=== PATIENT | male | born 1950 | race Caucasian/White ===

== ENCOUNTER 2018-10-08 12:19 | Emergency (ER) | payer OTHER, BC ==
[2018-10-08] MEDS ORDERED: LIDOCAINE 1% MPF 5 ML VIAL ONE (14:04)
--- NOTE | 2018-10-08 14:47 | EDPHYS ---
Physician Documentation [facility] Name: Nicolas Justice Age: 68 yrs Sex: Male : 1950 Arrival Date: 10/08/2018 Time: 12:22 Bed 13 Private MD: Juan Blackmon ED Physician David Alexander HPI: 10/08 15:24 This 68 yrs old Male presents to ER via Ambulatory with complaints of Hand kdr Injury. 15:24 The patient or guardian reports a laceration, clean, 1.5 cm(s), simple. The complaints kdr affect the MCP of left thumb. Context[place] 15:28 Onset: The symptoms/episode began/occurred acutely, just prior to arrival. Modifying kdr factors: The symptoms are alleviated by nothing, the symptoms are aggravated by movement. Associated signs and symptoms: The patient has no apparent associated signs or symptoms. Severity of symptoms: At their worst the symptoms were mild, in the emergency department the symptoms are unchanged. The patient has not experienced similar symptoms in the past. The patient has not recently seen a physician. Historical: - Allergies: 12:41 No Known Allergies; aj - Immunization history:: Last tetanus immunization: up to date. - Social history:: Smoking status: Patient/guardian denies using tobacco. - Ebola Screening: : Patient negative for fever greater than or equal to 101.5 degrees Fahrenheit, and additional compatible Ebola Virus Disease symptoms Patient denies exposure to infectious person Patient denies travel to an Ebola-affected area in the 21 days before illness onset No symptoms or risks identified at this time. ROS: 15:28 Constitutional: Negative for fever, chills, and weight loss. kdr 15:28 MS/extremity: Positive for laceration, tenderness. Exam: 15:28 Constitutional: This is a well developed, well nourished patient who is awake, alert, kdr and in no acute distress. 15:28 Musculoskeletal/extremity: Extremities: grossly normal except: laceration, pain, tenderness, Circulation is intact in all extremities. Sensation intact. Joints: All joints appear normal with full range of motion. Weight bearing: able to fully bear weight, Tendon exam: specific tendon testing normal through active and passive range of motion Vital Signs: 12:41 BP 156 / 79; Pulse 86; Resp 16; Temp 97.2; Pulse Ox 96% on R/A; Weight 72.57 kg; Height aj 5 ft. 9 in. (175.26 cm); 12:41 Body Mass Index 23.63 (72.57 kg, 175.26 cm) MDM: 14:46 Patient medically screened. kdr 15:28 Data reviewed: vital signs, nurses notes. Counseling: I had a detailed discussion with kdr the patient and/or guardian regarding: the historical points, exam findings, and any diagnostic results supporting the discharge/admit diagnosis, the need for outpatient follow up. Administered Medications: No medications were administered Disposition: 10/08/18 14:46 Discharged to Home. Impression: Left hand laceration. - Condition is Stable. - Discharge Instructions: Laceration Care, Adult, [id number]. - Prescriptions for Keflex 500 mg Oral Capsule - take 1 capsule by ORAL route every 6 hours for 3 days; 12 capsule. - Medication Reconciliation Form, Thank You Letter, Antibiotic Education form. - Follow up: Juan Blackmon MD; When: 2 - 3 days; Reason: If symptoms return, Further diagnostic work-up, Recheck today's complaints, Continuance of care, Re-evaluation by your physician. - Problem is new. - Symptoms have improved. - Notes: Sutures out in 12 - 14 days Signatures: Heidi Cotton, RN RN David Alexander MD MD [facility] Lexie Carter RN RN iw Corrections: (The following items were deleted from the chart) 15:05 14:46 10/08/2018 14:46 Discharged to Home. Impression: Left hand laceration. Condition iw is Stable. Forms are Medication Reconciliation Form, Thank You Letter, Antibiotic Education, Prescription Opioid Use. Follow up: Juan Blackmon; When: 2 - 3 days; Reason: If symptoms return, Further diagnostic work-up, Recheck today's complaints, Continuance of care, Re-evaluation by your physician. Problem is new. Symptoms have improved. kdr
--- NOTE | 2018-10-08 14:47 | ER ---
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 Washed with Hibiclens and Betadine HAT CONDITIONER. Transition of care: patient was not received from another setting of care. Onset of symptoms was October 08, 2018. Risk Assessment: Do you want to hurt yourself or someone else? Patient reports no desire to harm self or others. Initial Sepsis Screen: Does the patient meet any 2 criteria? No. Patient's initial sepsis screen is negative. Does the patient have a suspected source of infection? No. Patient's initial sepsis screen is negative. Care prior to arrival: None. 12:40 Method Of Arrival: Ambulatory aj 12:40 Acuity: AGATA 4 aj Triage Assessment: 12:41 General: Appears in no apparent distress. comfortable, Behavior is calm, cooperative, aj appropriate for age. Pain: Denies pain. Neuro: Level of Consciousness is awake, alert, obeys commands, Oriented to person, place, time, situation, Appropriate for age. Respiratory: Airway is patent Respiratory effort is even, unlabored, Respiratory pattern is regular, symmetrical. Musculoskeletal: Circulation, motion, and sensation intact. Injury Description: Laceration sustained to palmar aspect of proximal phalanx of left thumb. Historical: - Allergies: 12:41 No Known Allergies; aj - Immunization history:: Last tetanus immunization: up to date. - Social history:: Smoking status: Patient/guardian denies using tobacco. - Ebola Screening: : Patient negative for fever greater than or equal to 101.5 degrees Fahrenheit, and additional compatible Ebola Virus Disease symptoms Patient denies exposure to infectious person Patient denies travel to an Ebola-affected area in the 21 days before illness onset No symptoms or risks identified at this time. Assessment: 13:00 General: Appears in no apparent distress. comfortable, well groomed, Behavior is calm, ph cooperative, appropriate for age. Pain: Complains of pain in palmar aspect of proximal phalanx of left thumb. Neuro: Level of Consciousness is awake, alert, obeys commands, Oriented to person, place, time, situation. Vital Signs: 12:41 BP 156 / 79; Pulse 86; Resp 16; Temp 97.2; Pulse Ox 96% on R/A; Weight 72.57 kg; Height aj 5 ft. 9 in. (175.26 cm); 12:41 Body Mass Index 23.63 (72.57 kg, 175.26 cm) ED Course: 12:22 Patient arrived in ED. dl4 12:23 Juan Blackmon MD is Private Physician. dl4 12:41 Triage completed. aj 12:41 Arm band placed on right wrist. Patient placed in an exam room. aj 13:02 Naomi Dee, RN is Primary Nurse. ph 13:24 David Alexander MD is Attending Physician. kdr 14:44 Juan Blackmon MD is Referral Physician. kdr Administered Medications: No medications were administered Outcome: 14:46 Discharge ordered by MD. kdr 15:05 Patient left the ED. Addendum: 10/10/2018 19:42 Addendum: Other Pt did receive lidocaine 1% for pain control during laceration repair, p h laceration was sustained to palmar aspect of L thumb, > 2.5 cm w/ no bleeding, CMS and capo refill intact, cleaned w/ Hibiclens by ERP and repaired w/ sutures, dressing place before d/c. Signatures: Heidi Cotton RN RN aj Rittger, Kevin, MD MD kdr Lexie Carter RN RN Naomi Dee RN RN ph Luna, David dl4
== END 2018-10-08 15:05 | disposition home or self-care (01) ==
LOC: ER 12:19
DX: S61.012A Laceration without foreign body of left thumb without damage to nail, initial encounter (principal); W45.8XXA Other foreign body or object entering through skin, initial encounter; Y93.9 Activity, unspecified; Y92.832 Beach as the place of occurrence of the external cause
CPT/HCPCS: 99281

== ENCOUNTER 2021-01-07 07:51 | Inpatient (IN) | payer OTHER, BC ==
[2021-01-07 08:11] LABS: Protime INR 0.96
[2021-01-07 08:17] LABS: Absolute Lymphocytes (CBC) 2.8 K/uL (0.7-4.9); Hematocrit 52.3 % (39.6-49.0); MPV 8.7 fL (7.6-11.3); RBC Red Blood Cell Count 5.95 M/uL (4.33-5.43)
[2021-01-07] MEDS ORDERED: ASPIRIN 81 MG CHEWABLE TABLET ONE (08:26)
[2021-01-07] MEDS ORDERED: ONDANSETRON 4 MG/2 ML VIAL ONE (08:26)
[2021-01-07] MEDS ORDERED: NITROGLYCERIN 0.4 MG/TAB SL ONE (08:29)
[2021-01-07] MEDS ORDERED: HEPARIN/D5W 25,000 UNIT/500 ML BAG IV ONE (08:35)
[2021-01-07] MEDS ORDERED: HEPARIN 5000 UNIT/ML 1 ML VIAL ONE ×3 (08:37→08:57)
--- NOTE | 2021-01-07 08:37 | ER ---
Nurse's Notes [facility] Name: Nicolas Justice Age: 70 yrs Sex: Male : 1950 Arrival Date: 01/07/2021 Time: 07:51 Bed 24 Private MD: Juan Blackmon Diagnosis: ST elevation (STEMI) myocardial infarction of unspecified site Presentation: 01/07 07:55 Chief complaint: Patient states: CP started 30 minutes ago when taking out trash. ch5 constant pain in center of chest. Denies medical Hx. Coronavirus screen: Vaccine status: Patient reports receiving the 2nd dose of the covid vaccine. Ebola Screen: Patient negative for fever greater than or equal to 101.5 degrees Fahrenheit, and additional compatible Ebola Virus Disease symptoms Patient denies exposure to infectious person. Patient denies travel to an Ebola-affected area in the 21 days before illness onset. No symptoms or risks identified at this time. Initial Sepsis Screen: Does the patient meet any 2 criteria? No. Patient's initial sepsis screen is negative. Does the patient have a suspected source of infection? No. Patient's initial sepsis screen is negative. Risk Assessment: Do you want to hurt yourself or someone else? Patient reports no desire to harm self or others. Onset of symptoms was January 07, 2021 at 07:30. 07:55 Method Of Arrival: Wheelchair ch5 07:55 Acuity: AGATA 2 ch5 Historical: - Allergies: 07:57 No Known Allergies; ch5 - Home Meds: 07:57 None [Active]; ch5 - PMHx: 07:57 None; ch5 - Immunization history:: Adult Immunizations up to date, Client reports receiving the 2nd dose of the Covid vaccine. - Social history:: Smoking status: Patient denies any tobacco usage or history of. - Family history:: not pertinent. - Hospitalizations: : No recent hospitalization is reported. Screenin:57 Abuse screen: Denies threats or abuse. Denies injuries from another. Nutritional ch5 screening: No deficits noted. Tuberculosis screening: No symptoms or risk factors identified. Fall Risk None identified. Assessment: 08:00 General: Appears uncomfortable, Behavior is cooperative, anxious. Pain: Complains of ch5 pain in chest. Cardiovascular: Reports chest pain, shortness of breath, since 729. 08:01 Pain: Pain currently is 8 out of 10 on a pain scale. at worst was 10 out of 10 on a sl2 pain scale. Quality of pain is described as aching, heavy, pressure, Pain began suddenly, Is continuous, Alleviated by relaxation, Aggravated by exercise, increased activity, Noted to be grimacing, quiet/stoic. 08:01 Neuro: No deficits noted. Cardiovascular: Reports chest pain. Respiratory: Airway is sl2 patent Trachea midline Respiratory effort is even, unlabored, Respiratory pattern is regular, Breath sounds are clear. GI: No deficits noted. : No deficits noted. EENT: No deficits noted. Derm: No deficits noted. Musculoskeletal: No deficits noted. 08:20 Pain: Pain does not radiate. ap3 08:34 Reassessment: Cardiac [employer] team present at bedside - patient currently being sl2 prepared for transfer. 08:35 Pain: Pain currently is 1 out of 10 on a pain scale. sl2 08:40 Pain: Denies pain. sl2 08:45 Reassessment: Patient left ED - currently being transported to blacking machine operator. 2 Vital Signs: 07:55 Weight 79.38 kg; Height 69 in. (175.26 cm); ch5 08:02 BP 138 / 99; Pulse 92; Resp 20; Temp 97.6; Pulse Ox 96% ; Weight 80.7 kg; Pain 8/10; sl2 08:05 BP 138 / 97; Pulse 94; Resp 20; Pulse Ox 96% ; sl2 08:10 BP 134 / 101; Pulse 97; Resp 22; Pulse Ox 94% on R/A; sl2 08:15 BP 138 / 84; Pulse 101; Resp 18; Pulse Ox 99% on 2 lpm NC; sl2 08:20 BP 124 / 86; Pulse 104; Resp 18; Pulse Ox 99% on 2 lpm NC; sl2 08:52 BP 122 / 84; Pulse 101; Resp 20; Pulse Ox 99% on 2 lpm NC; sl2 08:02 Body Mass Index 26.27 (80.70 kg, 175.26 cm) 2 ED Course: 07:51 Patient arrived in ED. mr 07:51 Juan Blackmon MD is Private Physician. mr 07:54 Sung Villegas [facility] is [facility] pm1 07:54 Brannon Cameron MD is Attending Physician. pm1 07:57 Triage completed. ch5 07:57 Patient has correct armband on for positive identification. Placed in gown. Bed in low ch5 position. Call light in reach. court recording monitor on. Pulse ox on. NIBP on. 07:57 Arm band placed on right wrist. EKG completed in triage. Results shown to MD. ap3 07:57 No provider procedures requiring assistance completed. ch5 08:00 paged the workers' compensation hearings officer auto air conditioning apprentice, waiting workers' compensation hearings officer back. mt 08:03 Inserted saline lock: 20 gauge in right antecubital area, using aseptic technique. sl2 08:05 Autumn Grace is Primary Nurse. kc4 08:14 Dr. Guan called back and stated they will accept the patient for civil laboratory technician. mt 08:19 Side rails up X2. Adult w/ patient. Warm blanket given. ap3 08:19 Patient maintains SpO2 saturation greater than 95% on room air. ap3 08:28 Basic Metabolic Panel Sent. mh5 08:28 Basic Metabolic Panel Sent. 5 08:28 LFT's Sent. mh5 08:28 Magnesium Sent. mh5 08:28 NT PRO-BNP Sent. 5 08:28 Troponin (emerg Dept Use Only) Sent. mh5 08:29 Initial lab(s) drawn, by ED staff, sent to lab. EKG done, by ED staff, reviewed by mirna Cameron MD. Inserted saline lock: 20 gauge in right antecubital area, using aseptic technique. Blood collected. Missed attempt(s): 22 gauge in left wrist. 08:35 Juan Blackmon MD is Hospitalizing Provider. rn 12:21 Primary Nurse role handed off by Autumn Grace ds1 14:33 Missed attempt(s): 20 gauge in left wrist. forearm. mh5 23:29 Patient admitted, IV remains in place. intact, bleeding controlled, No redness/swelling ld1 at site. Administered Medications: 08:03 Drug: Aspirin Chewable Tablet 324 mg Route: PO; ap3 08:59 Follow up: Response: No adverse reaction sl2 08:03 Drug: Zofran (Ondansetron) 4 mg Route: IVP; Site: right antecubital; ap3 08:30 Follow up: Response: No adverse reaction sl2 08:04 Drug: Nitroglycerin 0.4 mg Route: Sublingual; kc4 08:09 Drug: Nitroglycerin 0.4 mg Route: Sublingual; kc4 08:14 Drug: Nitroglycerin 0.4 mg Route: Sublingual; kc4 08:30 Follow up: Response: No adverse reaction; Pain is decreased sl2 08:17 Drug: Heparin (MD-Bolus No thrombolytic) - HEParin 60 units/kg {Co-Signature: ll1 kc4 (Kerwin Crowe RN).} Route: IVP; Site: right antecubital; 08:30 Follow up: Response: No adverse reaction sl2 08:19 Drug: Heparin (MD Drip) 12 units/kg/hr - (HEParin 76163 units, D5W 500 ml) kc4 {Co-Signature: ll1 (Kerwin Crowe RN).} Route: IV; Rate: calculated rate; Site: right antecubital; 08:30 Follow up: Response: No adverse reaction sl2 08:29 Drug: Brilinta - Ticagrelor 180 mg Route: PO; ap3 08:30 Follow up: Response: No adverse reaction sl2 Outcome: 08:35 Decision to Hospitalize by Provider. rn 09:11 Admitted to [employer] accompanied by nurse, family with patient, via stretcher, with sl2 oxygen, on monitor, with chart. 09:11 Condition: stable 09:11 Discharge instructions given to patient, family, Instructed on Demonstrated understanding of instructions. 09:18 Patient left the ED. sl2 23:28 Admitted to Med/surg accompanied by tech, via wheelchair, room 205, with chart, Other ld1 With heparin drip Report called to DYANA [place] 23:29 Patient left the ED. ld1 Signatures: Cyndee Gallegos Sofiya Flynn ds1 Brannon Cameron MD MD rn Marinas, Patrick, JAY [employer] SUPPLY SPECIALIST pm1 Priscilla Ovalle 5 Becki Gold mt, Amanda, RN RN ap3 Zuleyma Emerson RN RN ld1 William Medellin, DYANA RN ch5 Autumn Grace kc4 Gissel Bravo RN RN sl2 Kerwin Crowe RN ll1 Corrections: (The following items were deleted from the chart) 08:45 08:28 To radiology for Chest Single View+RAD.RAD.BRZ. 5 EDMS 08:54 08:20 BP 124 / 86; Pulse 104bpm; Resp 18bpm; Pulse Ox 99% RA; 2 2 08:54 08:15 BP 138 / 84; Pulse 101bpm; Resp 18bpm; Pulse Ox 99% RA; 2 2 08:54 08:10 BP 134 / 101; Pulse 97bpm; Resp 22bpm; Pulse Ox 98% RA; 2 2 08:56 08:02 BP 138 / 99; Pulse 92bpm; Resp 20bpm; Pulse Ox 96%; Temp 97.6F; Pain 8/10; ch5 2
--- NOTE | 2021-01-07 08:37 | EDPHYS ---
Physician Documentation [facility] Name: Nicolas Justice Age: 70 yrs Sex: Male : 1950 Arrival Date: 01/07/2021 Time: 07:51 Bed 24 Private MD: Juan Blackmon ED Physician Brannon Cameron HPI: 01/07 08:05 This 70 yrs old Male presents to ER via Wheelchair with complaints of Chest rn Pain. 08:05 The patient or guardian reports chest pain that is located primarily in the substernal rn area. Onset: 30 minute(s) ago. The pain does not radiate. Associated signs and symptoms: Pertinent positives: diaphoresis, nausea, Pertinent negatives: abdominal pain, shortness of breath, syncope, vomiting. The chest pain is described as a heaviness, a pressure. Duration: The patient or guardian reports a single episode. Modifying factors: The symptoms are alleviated by nothing. the symptoms are aggravated by exertion. Severity of pain: At its worst the pain was moderate in the emergency department the pain is unchanged. The patient has not experienced similar symptoms in the past. The patient has not recently seen a physician. Patient states chest pain for the last couple days but has been going away with rest. Today taking trash out when began to experience substernal pressure associated with nausea and diaphoresis. No previous cardiac history. No recent trauma. Not on any blood thinners. Does not feel ill.. Historical: - Allergies: 07:57 No Known Allergies; ch5 - Home Meds: 07:57 None [Active]; ch5 - PMHx: 07:57 None; ch5 - Immunization history:: Adult Immunizations up to date, Client reports receiving the 2nd dose of the Covid vaccine. - Social history:: Smoking status: Patient denies any tobacco usage or history of. - Family history:: not pertinent. - Hospitalizations: : No recent hospitalization is reported. ROS: 08:05 Constitutional: Negative for fever, chills, and weight loss, Eyes: Negative for injury, rn pain, redness, and discharge, Neck: Negative for injury, pain, and swelling, Cardiovascular: Positive for chest pain Respiratory: Negative for shortness of breath, cough, wheezing, and pleuritic chest pain, Abdomen/GI: Positive for nausea Back: Negative for injury and pain, : Negative for injury, bleeding, discharge, and swelling, MS/Extremity: Negative for injury and deformity, Skin: Negative for injury, rash, and discoloration, Neuro: Negative for headache, weakness, numbness, tingling, and seizure. 08:05 All other systems are negative. rn Exam: 08:05 Constitutional: This is a well developed, well nourished patient who is awake, alert, rn appears anxious Head/Face: Normocephalic, atraumatic. Eyes: Periorbital areas with no swelling, redness, or edema. ENT: No stridor Cardiovascular: Regular rate and rhythm. No pulse deficits. Respiratory: Mild tachypnea Abdomen/GI: Soft, non-tender Skin: Warm, dry MS/ Extremity: Pulses equal, no cyanosis Neuro: Awake and alert, GCS 15 08:05 ECG was reviewed by the Attending Physician. Vital Signs: 07:55 Weight 79.38 kg; Height 69 in. (175.26 cm); ch5 08:02 BP 138 / 99; Pulse 92; Resp 20; Temp 97.6; Pulse Ox 96% ; Weight 80.7 kg; Pain 8/10; sl2 08:05 BP 138 / 97; Pulse 94; Resp 20; Pulse Ox 96% ; sl2 08:10 BP 134 / 101; Pulse 97; Resp 22; Pulse Ox 94% on R/A; sl2 08:15 BP 138 / 84; Pulse 101; Resp 18; Pulse Ox 99% on 2 lpm NC; sl2 08:20 BP 124 / 86; Pulse 104; Resp 18; Pulse Ox 99% on 2 lpm NC; sl2 08:52 BP 122 / 84; Pulse 101; Resp 20; Pulse Ox 99% on 2 lpm NC; sl2 08:02 Body Mass Index 26.27 (80.70 kg, 175.26 cm) sl2 MDM: 07:58 Patient medically screened. pm1 08:02 ED course: Patient with STEMI on ECG. Already paged cardiology waiting on callback. rn gave baby aspirin will complete with other aspirin to 324. Heparin bolus and drip ordered. As well as nitroglycerin. Appears is a high lateral injury pattern.. 08:31 Differential diagnosis: acute myocardial infarction, acute pericarditis, coronary rn artery disease pericarditis, unstable angina. HEART Score: History: Highly Suspicious (2), ECG: Significant ST-deviation (2), Age: > or = 65 years (2), Risk Factors: No Risk Factors Known (0), Troponin: < or = 1 x Normal Limit (0), Total Score = 6. The patient was given aspirin in the Emergency Department. SHIRIN Risk Score: 1 - patient's age is greater or equal to 65 years, 1 - ASA use in past 7 days, 1 - Recent [<24hrs] Severe Angina, 1 - ST deviation >0.5mm, TOTAL SCORE = 4. Data reviewed: vital signs, nurses notes, EKG, and as a result, I will admit patient. Data interpreted: lunchroom monitor: rate is 92 beats/min, rhythm is normal sinus rhythm, regular, with no ectopy, Interpretation: normal rate, normal rhythm, Pulse oximetry: on room air is 96 %. Interpretation: normal. Counseling: I had a detailed discussion with the patient and/or guardian regarding: the historical points, exam findings, and any diagnostic results supporting the discharge/admit diagnosis, the need for further work-up and treatment in the hospital. Response to treatment: the patient's symptoms have markedly improved after treatment, and as a result, I will admit patient. Admission orders: after a detailed discussion of the patient's condition and case, the admit orders are written by me. ED course: Consulted with Dr. Blackmon, will admit to his service. Patient will be going to Nail Machine Operator soon.. 01/07 07:54 Order name: Basic Metabolic Panel pm1 01/07 07:54 Order name: CBC with Diff; Complete Time: 08:36 pm1 01/07 07:54 Order name: LFT's pm1 01/07 07:54 Order name: Magnesium pm1 01/07 07:54 Order name: NT PRO-BNP pm1 01/07 07:54 Order name: PT-INR; Complete Time: 08:36 pm1 01/07 07:54 Order name: Troponin (emerg Dept Use Only) pm1 01/07 07:55 Order name: Basic Metabolic Panel EDMS 01/07 08:46 Order name: SARS-COV-2 RT PCR EDMS 01/07 16:11 Order name: Troponin I EDMS 01/07 20:08 Order name: Troponin I EDMS 01/07 07:54 Order name: EKG; Complete Time: 07:55 pm1 01/07 07:54 Order name: Cardiac monitoring; Complete Time: 08:03 pm1 01/07 07:54 Order name: EKG - Nurse/Tech; Complete Time: 08:03 pm1 01/07 07:54 Order name: IV Saline Lock; Complete Time: 08:03 pm1 01/07 07:54 Order name: Labs collected and sent; Complete Time: 08:03 pm1 01/07 07:54 Order name: O2 Per Protocol; Complete Time: 08:03 pm1 01/07 07:54 Order name: O2 Sat Monitoring; Complete Time: 08:03 pm1 EC:05 Rate is 86 beats/min. Rhythm is regular. QRS [place] is Normal. TX interval is normal. QRS rn interval is normal. QT interval is normal. No Q waves. T waves are Normal. ST Segment is elevated in leads I, aVL, V2. ST Segment is depressed in leads II, III, aVF. Clinical impression: Acute OR. Interpreted by me. Reviewed by me. Administered Medications: 08:03 Drug: Aspirin Chewable Tablet 324 mg Route: PO; ap3 08:59 Follow up: Response: No adverse reaction sl2 08:03 Drug: Zofran (Ondansetron) 4 mg Route: IVP; Site: right antecubital; ap3 08:30 Follow up: Response: No adverse reaction sl2 08:04 Drug: Nitroglycerin 0.4 mg Route: Sublingual; kc4 08:09 Drug: Nitroglycerin 0.4 mg Route: Sublingual; kc4 08:14 Drug: Nitroglycerin 0.4 mg Route: Sublingual; kc4 08:30 Follow up: Response: No adverse reaction; Pain is decreased sl2 08:17 Drug: Heparin (OR-Bolus No thrombolytic) - HEParin 60 units/kg {Co-Signature: ll1 kc4 (Kerwin Crowe RN).} Route: IVP; Site: right antecubital; 08:30 Follow up: Response: No adverse reaction sl2 08:19 Drug: Heparin (OR Drip) 12 units/kg/hr - (HEParin 74960 units, D5W 500 ml) kc4 {Co-Signature: ll1 (Kerwin Crowe RN).} Route: IV; Rate: calculated rate; Site: right antecubital; 08:30 Follow up: Response: No adverse reaction sl2 08:29 Drug: Brilinta - Ticagrelor 180 mg Route: PO; ap3 08:30 Follow up: Response: No adverse reaction sl2 Disposition: 08:31 Critical Care:. rn Disposition Summary: 01/07/21 08:35 Hospitalization Ordered Hospitalization Status: Inpatient Admission rn Provider: Juan Blackmon rn Condition: Stable rn Problem: new rn Symptoms: have improved rn Bed/Room Type: Standard rn Location: Telemetry/MedSurg (Inpatient)(01/07/21 22:25) cg Room Assignment: [place](01/07/21 22:33) cg Diagnosis - ST elevation (STEMI) myocardial infarction of unspecified site rn Forms: - Medication Reconciliation Form rn - SBAR form furnishings conservator time excluding procedures: 08:31 Critical care time: Bedside Care: 30 minutes, Consultation: 5 minutes. Total time: 35 rn minutes Signatures: Dispatcher [employer] EDME Sofiya Mack ds1 Brannon Cameron MD MD rn Garcia, Cindy, RN RN cg Marinas, Patrick, SUPERVISOR PIPELINE MAINTENANCE SUPERVISOR PIPELINE MAINTENANCE pm1 Heidi Cheung RN RN ap3 William Medellin RN RN ch5 Autumn Grace 4 Gissel Bravo RN sl2 Kerwin Crowe RN ll1 Corrections: (The following items were deleted from the chart) 08:45 07:55 Chest Single View+RAD.RAD.BRZ ordered. EDMS EDMS 08:47 08:08 CORONAVIRUS+MR.LAB.BRZ ordered. EDMS EDMS 12:23 08:35 Intensive Care Unit rn ds1 12:23 08:35 rn ds1 22:25 12:23 [facility] ER HOLD ds1 cg 22:25 12:23 ERHOLD- ds1 cg 22:33 22:25 cg cg
[2021-01-07] MEDS ORDERED: TICAGRELOR 90 MG TABLET PO ONE ×2 (08:53→21:06)
[2021-01-07] MEDS ORDERED: MIDAZOLAM HCL 2 MG/2 ML INJ ONE (08:55)
[2021-01-07] MEDS ORDERED: LIDOCAINE 1% 20 ML MDV ONE (08:55)
[2021-01-07] MEDS ORDERED: VERAPAMIL HCL 10 MG/4 ML VIAL IV ONE (08:56)
[2021-01-07] MEDS ORDERED: FENTANYL CITR 100 MCG/2 ML ONE (08:56)
[2021-01-07] MEDS ORDERED: ATROPINE SULF 1 MG/10 ML SYR IV ONE (08:57)
[2021-01-07] MEDS ORDERED: NITROGLYCERIN/D5W 25 MG/250 ML BTL IV ONE (08:57)
[2021-01-07] MEDS ORDERED: NITROGLYCERIN 100 MCG/ML SYR (for cath lab use only) IV ONE (08:57)
[2021-01-07 09:11] LABS: Bilirubin Direct 0.1 mg/dL (0-0.2); Bilirubin Total 0.6 mg/dL (0.2-1.0); Magnesium 2.2 mg/dL (1.8-2.4); Potassium 4.3 mmol/L (3.5-5.1); Protein, Total 8.1 g/dL (6.4-8.2)
[2021-01-07 09:13] LABS: Troponin (Emerg Dept Use Only) 4.29 ng/mL (0.0-0.045)
[2021-01-07] MEDS ORDERED: NA CHLORIDE 0.9% 500 ML ONE (09:32)
[2021-01-07] MEDS ORDERED: NITROPRUSSIDE 50 MG VIAL IV ONE (09:51)
[2021-01-07] MEDS ORDERED: D5W 250 ML IV ONE (09:52)
[2021-01-07] MEDS ORDERED: ADENOSINE 6 MG/ 2ML VIAL IV ONE (09:58)
[2021-01-07] MEDS ORDERED: ONDANSETRON 4 MG/2 ML VIAL IV PRN (12:09)
--- NOTE | 2021-01-07 12:16 | P.HP ---
Certification for Inpatient Patient admitted to: Inpatient With expected LOS: >2 Midnights Patient will require the following post-hospital care: None Practitioner: I am a practitioner with admitting privileges, knowledge of patient current condition, hospital course, and medical plan of care. Services: Services provided to patient in accordance with Admission requirements found in Title 42 Section 412.3 of the Code of Federal Regulations Patient History Date of Service: 01/07/21 Primary Care Provider: Dr. Blackmon( I am covering him) Reason for admission: Chest pain History of Present Illness: 70-year-old male presented with chest pain. Patient reported substernal chest pain that started about 30 minutes prior to being seen in the ER. This did not radiate. He had some nausea with diaphoresis. Patient denied any significant syncope or shortness of breath. This was just a single episode. It was worse in the ER. In the ER patient was evaluated. Troponin elevated. Patient with ST elevation NC. Cardiology was consulted. Cardiology immediately intervened and took the patient to heart cath. Heart catheterization performed showed stenosis to the proximal LAD. Stent was placed. Patient now stable without significant chest pain. I was consulted to help admit the patient and monitor overnight. Patient is seen by Dr. Blackmon. Dr. Blackmon was not available and asked me to see the patient for him today. 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 Psychosocial/ Personal History: Patient is - Family History Family History: Reviewed- Non-Contributory - Social History Smoking Status: Never smoker Alcohol use: Yes CD- Drugs: No Caffeine use: Yes Place of Residence: Home Review of Systems General: As per HPI Eyes: Unremarkable ENT: Unremarkable Respiratory: Unremarkable Cardiovascular: Chest Pain, As per HPI Gastrointestinal: As per HPI Genitourinary: Unremarkable Musculoskeletal: Unremarkable Integumentary: Unremarkable Neurological: As per HPI Lymphatics: Unremarkable Physical Examination - Vital Signs Temperature: 97.6 F Blood Pressure: 122/84 Pulse: 101 Respirations: 20 - Studies Laboratory Data (last 24 hrs) 01/07/21 08:00: PT 11.0, INR 0.96 01/07/21 08:00: WBC 10.00, Hgb 17.1, Hct 52.3 H, Plt Count 268 01/07/21 08:00: Sodium 143, Potassium 4.3, BUN 22 H, Creatinine 1.62 H, Glucose 138 H, Magnesium 2.2, Total Bilirubin 0.6, AST 50 H, ALT 28, Alkaline Phosphatase 122 H Assessment and Plan - Plan COVID: Negative Chest x-ray: Heart catheterization: Proximal LAD stenosis noted. Status post stent Physical Exam: GENERAL: The patient is a well-developed, well-nourished, in no apparent distress. Alert and oriented x3. VITAL SIGNS: Reviewed HEENT: Head is normocephalic and atraumatic. Extraocular muscles are intact. Pupils are equal, round, and reactive to light and accommodation. Nares appeared normal. Mouth is well hydrated and without lesions. Mucous membranes are moist. NECK: Supple. No carotid bruits. No lymphadenopathy or thyromegaly. LUNGS: Clear to auscultation. No crackles or wheezes are heard. HEART: Regular rate and rhythm, no appreciable gallops, rubs, murmurs or extra heart sounds ABDOMEN: Soft, nontender, and nondistended. Positive bowel sounds. No hepatosplenomegaly was noted. EXTREMITIES: Without any cyanosis, clubbing, rash, lesions or peripheral edema. NEUROLOGIC: The patient is oriented to person, place and time. Strength and sensation are grossly intact. Face is symmetric. SKIN: Normal color, turgor and temperature. No ulcerations or rashes noted. Impression: Chest pain secondary to ST elevation NC status post heart catheterization showing proximal LAD stenosis status post stent placement Hypertension Acute renal insufficiency likely dehydration Plan: Patient was taken to heart catheterization emergently. Heart catheterization performed showed proximal LAD stenosis. Stent was placed. Case discussed at [facility] with cardiology. Cardiology recommends to continue monitoring patient. Cardiology recommends to continue heparin drip for the next 24 hours. Continue with aspirin, Brilinta, statin medication. Will provide metoprolol for hypertension. Will start IV fluids. Will monitor closely. We will also start him provide Pepcid. We will continue to monitor closely. Case discussed at length with PCPDr. Blackmon. Will discuss with Dr. Blackmon later today as the patient will likely be seen by Dr. Blackmon tomorrow. Code Status: Full Code DVT prophylaxis: Heparin Advanced Care Planning-30 minutes: Home at discharge Discharge Plan: Home Plan to discharge in: 48 Hours - Advance Directives Does patient have a Living Will: No Does patient have a Durable POA for Healthcare: No - Code Status/Comfort Care Code Status Assessed: Yes (Full code) Time Spent Managing Pts Care (In Minutes): 55
[2021-01-07 12:58] VITALS: BMI 26.6
[2021-01-07] MEDS ORDERED: ASPIRIN EC 81 MG TAB PO ONE (13:12)
[2021-01-07] MEDS: FAMOTIDINE 20 MG TAB PO SCH (13:40)
[2021-01-07] MEDS ORDERED: HEPARIN/D5W 25,000 UNIT/500 ML BAG IV SCH ×2 (14:00)
[2021-01-07] MEDS ORDERED: FAMOTIDINE 20 MG TAB ONE (14:04)
--- NOTE | 2021-01-07 15:36 | CON ---
Date of Consultation: 01/07/2021 I was called at 8:20 this morning from the emergency room due to presence of STEMI, I came and saw th e patient in the emergency room. He reported chest pain, started around 6:20 to 7. He was trying to get the trash out, pressure-like retrosternal and radiates to his neck, along with nausea, did not v omit, right to the emergency room and the EKG showed ST elevation in lead 1 and aVL. The excavation laborer cr ew was activated immediately upon seeing the EKG and the patient was moved to the excavation laborer immediatel y for acute STEMI intervention. The patient does not have any history of coronary artery disease or any other medical history. Past Medical History: None. Medications: None. Allergies: REVIEWED. Social History: Does not smoke or drink. Does not use any drugs. Review of Systems: All systems reviewed and negative except mentioned in HPI. Physical Examination: Vital signs were reviewed. Head and Neck: Pupils are equal, reactive to light. Intact eye movements. No JVD. No cervical lym phadenopathy. Neck: Supple. Thyroid is not enlarged. Lungs: Clear to auscultation bilaterally. No rhonchi, rales, or crackles. No accessory muscle use. Heart: Regular rate and rhythm. No extra sounds. Abdomen: Soft, nontender. Bowel sounds positive. No organomegaly. No rigidity or rebound. Extremities: No edema, clubbing, cyanosis. Intact pulses. Skin: No rashes. Neurologic: Alert, awake, oriented x3. No acute focal deficits appreciated. Investigations: Labs pending. Assessment And Recommendations: Acute ST-elevation myocardial infarction. Plan: Emergent coronary angiogram and PCI as needed. Patient was loaded with Brilinta and aspirin a nd heparin. SR/MODL Voice ID: [id number] Report ID: [id number]
[2021-01-07] MEDS: METOPROLOL TAR 25 MG TAB PO SCH (18:00)
[2021-01-07] MEDS: NITROGLYCERIN 1 GM PKT TD SCH (18:00)
[2021-01-07] MEDS ORDERED: NITROGLYCERIN 1 GM PKT TD ONE (18:53)
[2021-01-07] MEDS ORDERED: METOPROLOL TAR 25 MG TAB ONE (18:53)
[2021-01-07] MEDS ORDERED: TICAGRELOR 90 MG TABLET PO SCH (21:00)
[2021-01-07] MEDS ORDERED: lisinopriL 5 MG TAB PO SCH (21:00)
[2021-01-07] MEDS ORDERED: FAMOTIDINE 20 MG TAB PO SCH (21:00)
[2021-01-07] MEDS ORDERED: lisinopriL 5 MG TAB ONE (21:06)
[2021-01-07] MEDS: TICAGRELOR 90 MG TABLET PO SCH (21:20)
[2021-01-08] MEDS: NITROGLYCERIN 1 GM PKT TD SCH ×2 (00:37→05:44)
[2021-01-08 04:42] LABS: Basophils % 0.5 % (0-1.3); Hematocrit 42.3 % (39.6-49.0); MPV 8.9 fL (7.6-11.3)
[2021-01-08 05:01] LABS: Albumin 3.2 g/dL (3.4-5.0); Bilirubin Total 0.7 mg/dL (0.2-1.0); Magnesium 2.1 mg/dL (1.8-2.4); Potassium 4.5 mmol/L (3.5-5.1); Protein, Total 6.7 g/dL (6.4-8.2); Thyroid Stimulating Hormone 1.03 uIU/mL (0.360-3.740)
[2021-01-08] MEDS ORDERED: NA CHLORIDE 0.9% 500 ML IV ONE ×4 (05:21→07:13)
[2021-01-08] MEDS: METOPROLOL TAR 25 MG TAB PO SCH (05:43)
--- NOTE | 2021-01-08 05:58 | P.PN ---
Subjective Date of Service: 01/08/21 Primary Care Provider: Dr. Blackmon( I am covering him) Chief Complaint: Chest pain Subjective: Other (Blood pressure was low this morning. Patient received IV fluid bolus. Patient was without any chest pain, shortness of breath.) Physical Examination - Vital Signs Temperature: 98.4 F Blood Pressure: 66/44 Pulse: 72 Respirations: 17 Pulse Ox (%): 94 - Studies Laboratory Data (last 24 hrs) 01/07/21 08:00: PT 11.0, INR 0.96 01/07/21 08:00: WBC 10.00, Hgb 17.1, Hct 52.3 H, Plt Count 268 01/07/21 08:00: Sodium 143, Potassium 4.3, BUN 22 H, Creatinine 1.62 H, Glucose 138 H, Magnesium 2.2, Total Bilirubin 0.6, AST 50 H, ALT 28, Alkaline Phosphatase 122 H Assessment & Plan Discharge Plan: Home Plan to discharge in: 24 Hours Physician Review Additional Text: COVID: Negative Heart catheterization: Proximal LAD stenosis noted. Status post stent ECHO: CARDIAC HISTORY: CATHERIZATION: YES SURGERY: NO PROSTHETIC VALVE: NO PACEMAKER: NO MEASUREMENTS (cm) DIASTOLIC (NORMALS) SYSTOLIC (NORMALS) IVSd 1.2 (0.6-1.2) LA Diam 2.4 (1.9-4.0) LVEF 40-45% LVIDd 4.1 (3.5-5.7) LVIDs 3.2 (2.0-3.5) %FS 23% LVPWd 1.2 (0.6-1.2) Ao Diam (2.0-3.7) 2 DIMENSIONAL ASSESSMENT: RIGHT ATRIUM: NORMAL LEFT ATRIUM: NORMAL RIGHT VENTRICLE: NORMAL LEFT VENTRICLE: DEPRESSED TRICUSPID VALVE: MITRAL VALVE: NORMAL PULMONIC VALVE: NORMAL AORTIC VALVE: PERICARDIAL EFFUSION: NONE AORTIC ROOT: NORMAL LEFT VENTRICULAR WALL MOTION: ANTERIOR WALL HYPOKINESIS. DOPPLER/COLOR FLOW: SEE BELOW COMMENTS: MILDLY DEPRESSED LEFT VENTRICULAR EJECTION FRACTION 40-45%. ANTERIOR WALL HYPOKINESIS. MILD AORTIC AND TRICUSPID REGURGITATION. Renal US: To be obtained. Physical Exam: GENERAL: The patient is a well-developed, well-nourished, in no apparent distres s. Alert and oriented x3. VITAL SIGNS: Reviewed blood pressure low this morning. Fluid bolus given. HEENT: Neck supple LUNGS: Clear to auscultation. No crackles or wheezes are heard. HEART: Regular rate and rhythm, no appreciable gallops, rubs, murmurs or extra heart sounds ABDOMEN: Soft, nontender, and nondistended. Positive bowel sounds. No hepatosplenomegaly was noted. EXTREMITIES: Without any cyanosis, clubbing, rash, lesions or peripheral edema. NEUROLOGIC: The patient is oriented to person, place and time. Strength and sensation are grossly intact. Face is symmetric. SKIN: Normal color, turgor and temperature. No ulcerations or rashes noted. Impression: Chest pain secondary to ST elevation WI status post heart catheterization showing proximal LAD stenosis status post stent placement Hypotension Acute renal insufficiency suspect underlying chronic renal disease stage III Hyperlipidemia Plan: Chest pain secondary to ST elevation WI status post heart catheterization showing proximal LAD stenosis status post stent placement: Patient had low blood pressure this morning. Nitroglycerin paste was removed early this morning. Patient given IV fluid bolus. Will give another fluid bolus to help with blood pressure. Patient asymptomatic at this time. We will continue to monitor closely. Continue IV fluids. Will discuss with cardiology. Nephrology consulted due to acute renal insufficiency suspect underlying chronic renal disease. We will obtain renal ultrasound. We will continue to reassess and monitor. Will check hemoglobin this morning as the patient remains on heparin drip as recommended by cardiology. Patient also to continue with aspirin, Brilinta and statin medication. Will discontinue blood pressure medicationslisinopril and metoprolol at this time. Will discuss case with PCP and cardiology. Likely discharge in the next 24 hours. Hypotension: Nitropaste removed early this morning. Fluid bolus given. Another fluid bolus to be given and continue with IV fluids. Will monitor closely. Will check hemoglobin hematocrit since the patient is on heparin drip. Patient asymptomatic at this time. Will discontinue lisinopril and metoprolol at this time. Acute renal insufficiency suspect underlying chronic renal disease stage III: Continue with IV fluids. Continue with above plan of care. Nephrology consulted to help further evaluate. Hyperlipidemia: LDL 144. Continue with statin medication Code Status: Full Code DVT prophylaxis: Heparin Advanced Care Planning-30 minutes: Home at discharge Time Spent Managing Pts Care (In Minutes): 55
[2021-01-08] MEDS: NA CHLORIDE 0.9% 1,000 ML IV SCH ×2 (06:44→09:58)
--- NOTE | 2021-01-08 07:13 | ECHO ---
HEIGHT: 5 ft 9 in WEIGHT: 180 lb 0 oz DATE OF STUDY: 01/07/[address]: Francois Loco 2-DIMENSIONAL: YES M.MODE: YES DOPPLER: YES COLOR FLOW: YES TDS: NO PORTABLE: NO DEFINITY: NO BUBBLE STUDY: NO DIAGNOSIS: NSTEMI CARDIAC HISTORY: CATHERIZATION: YES SURGERY: NO PROSTHETIC VALVE: NO PACEMAKER: NO MEASUREMENTS (cm) DIASTOLIC (NORMALS) SYSTOLIC (NORMALS) IVSd 1.2 (0.6-1.2) LA Diam 2.4 (1.9-4.0) LVEF 40-45% LVIDd 4.1 (3.5-5.7) LVIDs 3.2 (2.0-3.5) %FS 23% LVPWd 1.2 (0.6-1.2) Ao Diam (2.0-3.7) 2 DIMENSIONAL ASSESSMENT: RIGHT ATRIUM: NORMAL LEFT ATRIUM: NORMAL RIGHT VENTRICLE: NORMAL LEFT VENTRICLE: DEPRESSED TRICUSPID VALVE: MITRAL VALVE: NORMAL PULMONIC VALVE: NORMAL AORTIC VALVE: PERICARDIAL EFFUSION: NONE AORTIC ROOT: NORMAL LEFT VENTRICULAR WALL MOTION: ANTERIOR WALL HYPOKINESIS. DOPPLER/COLOR FLOW: SEE BELOW COMMENTS: MILDLY DEPRESSED LEFT VENTRICULAR EJECTION FRACTION 40-45%. ANTERIOR WALL HYPOKINESIS. MILD AORTIC AND TRICUSPID REGURGITATION. TECHNOLOGIST: Estephania BURCH
--- NOTE | 2021-01-08 07:46 | EKG ---
Test Date: 2021-01-07 Test Time: 07:58:14 Technical Services Specialist: ALP MEASUREMENT RESULTS: Intervals: Rate: 86 MN: 170 QRSD: 82 QT: 358 QTc: 428 [place]: P: 64 MN: 170 QRS: 11 T: -21 INTERPRETIVE STATEMENTS: Sinus rhythm with occasional premature ventricular complexes Anteroseptal infarct, possibly acute Lateral injury pattern ACUTE NV Abnormal ECG No previous ECG available for comparison Electronically Signed On 01-08-21 07:44:21 CDT by Sadiq Guan
[2021-01-08 08:15] LABS: Hematocrit 39.9 % (39.6-49.0)
--- NOTE | 2021-01-08 09:11 | P.CNS ---
Date of Consult: 01/08/21 Reason for Consult: FRANK Requesting Physician: Farrukh Gan Primary Care Provider: Dr. Blackmon( I am covering him) Chief Complaint: Chest pain History of Present Illness: 70M w/ PMHx of CKD3, baseline GFR 49 ml/min (SCr 1.5) presumed to be 2/2 Htn nephrosclerosis, & Htn who p/w chest pain found to have STEMI underwent PCI on 01/07, referred to Nephrology for FRANK. SCr increased to 2.4 today. BP borderline low. Had hypotensive episodes earlier today that improved w/ IV fluids. Urinalysis showed high specific gravity. No overt proteinuria. No hematuria. No pyuria. Renal US unremarkable except for ? mild L hydronephrosis. 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 Psychosocial/ Personal History: Patient is - Social History Alcohol use: Yes CD- Drugs: No Caffeine use: Yes Place of Residence: Home Review of Systems General: Unremarkable Eyes: Unremarkable ENT: Unremarkable Respiratory: Unremarkable Cardiovascular: Chest Pain Gastrointestinal: Unremarkable Genitourinary: Unremarkable Musculoskeletal: Unremarkable Integumentary: Unremarkable Neurological: Unremarkable Lymphatics: Unremarkable Physical Examination Temp Pulse Resp BP Pulse Ox 96.8 F 82 14 83/52 L 95 01/08/21 08:00 01/08/21 08:00 01/08/21 08:00 01/08/21 08:00 01/08/21 08:00 General: In no apparent distress HEENT: Atraumatic, Normocephalic Neck: Supple, JVD not distended Respiratory: Other (symmetric chest expansion) Cardiovascular: No rubs, No murmurs Gastrointestinal: Soft and benign, Non-distended Musculoskeletal: No swelling Integumentary: Other (Normal skin temperature) Neurological: Normal speech, Normal tone Lymphatics: No axilla or inguinal lymphadenopathy Urinary: Other (No bladder distention) External genitalia: Deferred Rectal: Deferred Laboratory Data (last 24 hrs) 01/07/21 08:00: Sodium 143, Potassium 4.3, BUN 22 H, Creatinine 1.62 H, Glucose 138 H, Magnesium 2.2, Total Bilirubin 0.6, AST 50 H, ALT 28, Alkaline Phosphatase 122 H Conclusions/Impression: # FRANK 2/2 CRS1 SCr 2.4 today Urinalysis showed high specific gravity, no hematuria, no pyuria No overt proteinuria, random UPCR 0.1g Renal US unremarkable except for ? mild L hydronephrosis F/u CPK, bladder scan PVR Received IV contrast upon LHC on 01/07; Monitor for contrast-induced nephropathy in the next 1-2 days [place] by mouth fluid intake Continue IV fluids until tomorrow Monitor input output, renal panel # CKD3 presumed to be 2/2 Htn nephrosclerosis Baseline GFR 49 ml/min (SCr 1.5) Monitor renal panel # STEMI S/p PCI on 01/07 Cardioprudent meds per cardiology # Htn Currently borderline hypotensive IVF as above
[2021-01-08] MEDS: ASPIRIN EC 81 MG TAB PO SCH ×2 (09:58→10:24)
[2021-01-08] MEDS: FAMOTIDINE 20 MG TAB PO SCH ×2 (09:58→10:24)
[2021-01-08] MEDS: TICAGRELOR 90 MG TABLET PO SCH ×3 (09:58→20:23)
[2021-01-08 12:49] LABS: Potassium 4.2 mmol/L (3.5-5.1)
--- NOTE | 2021-01-08 13:07 | RAD REPORT ---
EXAM DESCRIPTION: US - Renal Ultrasound-Complete - 01/08/2021 6:43 am CLINICAL HISTORY: renal insufficiency COMPARISON: No comparisons FINDINGS: Both kidneys are normal in size, shape and echotexture. The right kidney measures 9.8 cm. No hydronephrosis, focal mass or perinephric fluid. The left kidney measures 10.7 cm. Mild left-sided hydronephrosis. No masses are identified. The urinary bladder is incompletely distended without gross abnormality seen. IMPRESSION: Mild left-sided hydronephrosis of uncertain etiology.
[2021-01-08 17:24] LABS: UR PROTEIN 20.7 mg/dL (<11.9); Urine Protein/Creatinine Ratio 0.1 ratio (<0.15)
[2021-01-08 17:59] LABS: Urine Appearance CLEAR (Clear); Urine Bilirubin NEGATIVE (Negative); Urine Blood NEGATIVE (Negative); Urine Color YELLOW (Yellow); Urine Glucose NEGATIVE (Negative); Urine Protein NEGATIVE (Negative); Urine Specific Gravity 1.025 (1.005-1.030); Urine Urobilinogen 0.2 mg/dL (0.2-1.0); Urine pH 5.5 (5.0-7.0)
[2021-01-08 18:50] LABS: Urine Bacteria <20 /HPF (NONE SEEN); Urine RBC <5 /HPF (NONE SEEN)
[2021-01-08 18:51] LABS: Urine Amorphous Sediment 1+ /HPF (NONE SEEN); Urine Mucus 1+ /HPF (NONE SEEN)
[2021-01-09 04:38] LABS: Absolute Lymphocytes (CBC) 0.8 K/uL (0.7-4.9); Basophils % 0.6 % (0-1.3); Hematocrit 35.9 % (39.6-49.0); Lymphocytes % 12.5 % (15.3-44.8); MPV 8.9 fL (7.6-11.3); RBC Red Blood Cell Count 4.13 M/uL (4.33-5.43)
[2021-01-09 05:05] LABS: Albumin 2.7 g/dL (3.4-5.0); Bilirubin Total 0.7 mg/dL (0.2-1.0); Phosphorus 2.2 mg/dL (2.5-4.9); Potassium 4.3 mmol/L (3.5-5.1); Protein, Total 5.9 g/dL (6.4-8.2)
--- NOTE | 2021-01-09 05:05 | P.PN ---
Subjective Date of Service: 01/09/21 Primary Care Provider: Dr. Blackmon( I am covering him) Chief Complaint: Chest pain Subjective: Other (No urinary complaints) Physical Examination - Vital Signs Temperature: 97.6 F Blood Pressure: 92/52 Pulse: 82 Respirations: 20 Pulse Ox (%): 96 - Physical Exam General: In no apparent distress HEENT: Atraumatic, Normocephalic Neck: Supple, JVD not distended Respiratory: Other (Symmetric chest expansion) Cardiovascular: No rubs, No murmurs Gastrointestinal: Soft and benign, No guarding Musculoskeletal: No clubbing, No swelling Integumentary: Other (normal skin temperature) Neurological: Normal speech, Normal tone Lymphatics: No axilla or inguinal lymphadenopathy Urinary: Other (no bladder distention) External genitalia: Deferred Rectal: Deferred Assessment And Plan - Plan # FRANK 2/2 CRS1 Baseline serum creatinine 1.5 SCr improved to 1.7 today Urinalysis showed high specific gravity, no hematuria, no pyuria No overt proteinuria, random UPCR 0.1g Renal US unremarkable except for ? mild L hydronephrosis; CT A/P vs recheck renal US in 1 month or if renal fxn worsens as outpt, to reassess ? L hydronephrosis CPK not sig elevated, no rhabdo Bladder scan PVR done showed no urinary retention Received IV contrast upon LHC on 01/07; Monitor for contrast-induced nephropathy (CHAY) [place] by mouth fluid intake Dc IV fluids Monitor input output, renal panel # CKD3 presumed to be 2/2 Htn nephrosclerosis Baseline GFR 49 ml/min (SCr 1.5) Monitor renal panel # STEMI S/p PCI on 01/07 Cardioprudent meds per cardiology # Htn BP low yesterday now improved Monitor # Dispo May dc today Recheck labs on 01/11 to assess for CHAY F/u in renal clinic in 1 wk
--- NOTE | 2021-01-09 05:59 | P.PN ---
Subjective Date of Service: 01/09/21 Primary Care Provider: Dr. Blackmon( I am covering him) Chief Complaint: Chest pain Subjective: Improving, Doing well Physical Examination - Vital Signs Temperature: 97.6 F Blood Pressure: 92/52 Pulse: 82 Respirations: 20 Pulse Ox (%): 96 Assessment & Plan Discharge Plan: Home Plan to discharge in: 24 Hours Physician Review Additional Text: COVID: Negative Heart catheterization: Proximal LAD stenosis noted. Status post stent ECHO: CARDIAC HISTORY: CATHERIZATION: YES SURGERY: NO PROSTHETIC VALVE: NO PACEMAKER: NO MEASUREMENTS (cm) DIASTOLIC (NORMALS) SYSTOLIC (NORMALS) IVSd 1.2 (0.6-1.2) LA Diam 2.4 (1.9-4.0) LVEF 40-45% LVIDd 4.1 (3.5-5.7) LVIDs 3.2 (2.0-3.5) %FS 23% LVPWd 1.2 (0.6-1.2) Ao Diam (2.0-3.7) 2 DIMENSIONAL ASSESSMENT: RIGHT ATRIUM: NORMAL LEFT ATRIUM: NORMAL RIGHT VENTRICLE: NORMAL LEFT VENTRICLE: DEPRESSED TRICUSPID VALVE: MITRAL VALVE: NORMAL PULMONIC VALVE: NORMAL AORTIC VALVE: PERICARDIAL EFFUSION: NONE AORTIC ROOT: NORMAL LEFT VENTRICULAR WALL MOTION: ANTERIOR WALL HYPOKINESIS. DOPPLER/COLOR FLOW: SEE BELOW COMMENTS: MILDLY DEPRESSED LEFT VENTRICULAR EJECTION FRACTION 40-45%. ANTERIOR WALL HYPOKINESIS. MILD AORTIC AND TRICUSPID REGURGITATION. Renal US: To be obtained. Physical Exam: GENERAL: The patient is a well-developed, well-nourished, in no apparent distress. Alert and oriented x3. VITAL SIGNS: Vital signs stable. Blood pressure overall improved. Patient does not appear orthostatic. Patient asymptomatic. HEENT: Neck supple LUNGS: Clear to auscultation. No crackles or wheezes are heard. HEART: Regular rate and rhythm, no appreciable gallops, rubs, murmurs or extra heart sounds ABDOMEN: Soft, nontender, and nondistended. Positive bowel sounds. No hepatosplenomegaly was noted. EXTREMITIES: Without any cyanosis, clubbing, rash, lesions or peripheral edema. NEUROLOGIC: The patient is oriented to person, place and time. Strength and sensation are grossly intact. Face is symmetric. SKIN: Normal color, turgor and temperature. No ulcerations or rashes noted. Impression: Chest pain secondary to ST elevation [place] status post heart catheterization showing proximal LAD stenosis status post stent placement Hypotension Acute renal insufficiency suspect underlying chronic renal disease stage III Hyperlipidemia Plan: Chest pain secondary to ST elevation [place] status post heart catheterization show ing proximal LAD stenosis status post stent placement: Blood pressure improved. Blood pressure remains low but not orthostatic. Patient able to ambulate appropriately. Will give fluid bolus this morning. Continue IV fluids. Renal function improved. Will discuss with nephrology and cardiology. Likely able to do be discharged today. Patient will need to continue with aspirin, Brilinta and statin medication. No need for blood pressure medication at this time. Hypotension: Blood pressure improved. Will give IV fluid bolus this morning. Orthostatics unremarkable. No need for blood pressure medication at discharge. Pressure will need to be monitored as an outpatient. Patient may require blood pressure medicationbeta-brittany in the future. Acute renal insufficiency suspect underlying chronic renal disease stage III: Fluid bolus given this morning. Continue IV fluids. Blood pressure improved. Renal function improved. Will discuss with nephrology about plan of care. Hyperlipidemia: LDL 144. Continue with statin medication Code Status: Full Code DVT prophylaxis: Heparin Advanced Care Planning-30 minutes: Home at discharge Time Spent Managing Pts Care (In Minutes): 55
[2021-01-09] MEDS: NA CHLORIDE 0.9% 1,000 ML IV SCH (06:31)
[2021-01-09] MEDS ORDERED: NA CHLORIDE 0.9% 500 ML IV ONE (06:34)
--- NOTE | 2021-01-09 08:43 | P.DS ---
Admission Date: 01/07/21 Discharge Date: 01/09/21 Primary Care Provider: Dr. Blackmon( I am covering him) Disposition: ROUTINE DISCHARGE Discharge Condition: GOOD Reason for Admission: Chest pain Consultations: Cardiology-Dr. Loco Nephrology-Dr. Valdivia Procedures: COVID: Negative Heart catheterization: Proximal LAD stenosis noted. Status post stent ECHO: CARDIAC HISTORY: CATHERIZATION: YES SURGERY: NO PROSTHETIC VALVE: NO PACEMAKER: NO MEASUREMENTS (cm) DIASTOLIC (NORMALS) SYSTOLIC (NORMALS) IVSd 1.2 (0.6-1.2) LA Diam 2.4 (1.9-4.0) LVEF 40-45% LVIDd 4.1 (3.5-5.7) LVIDs 3.2 (2.0-3.5) %FS 23% LVPWd 1.2 (0.6-1.2) Ao Diam (2.0-3.7) 2 DIMENSIONAL ASSESSMENT: RIGHT ATRIUM: NORMAL LEFT ATRIUM: NORMAL RIGHT VENTRICLE: NORMAL LEFT VENTRICLE: DEPRESSED TRICUSPID VALVE: MITRAL VALVE: NORMAL PULMONIC VALVE: NORMAL AORTIC VALVE: PERICARDIAL EFFUSION: NONE AORTIC ROOT: NORMAL LEFT VENTRICULAR WALL MOTION: ANTERIOR WALL HYPOKINESIS. DOPPLER/COLOR FLOW: SEE BELOW COMMENTS: MILDLY DEPRESSED LEFT VENTRICULAR EJECTION FRACTION 40-45%. ANTERIOR WALL HYPOKINESIS. MILD AORTIC AND TRICUSPID REGURGITATION. Renal US: COMPARISON: No comparisons FINDINGS: Both kidneys are normal in size, shape and echotexture. The right kidney measures 9.8 cm. No hydronephrosis, focal mass or perinephric fluid. The left kidney measures 10.7 cm. Mild left-sided hydronephrosis. No masses are identified. The urinary bladder is incompletely distended without gross abnormality seen. IMPRESSION: Mild left-sided hydronephrosis of uncertain etiology. Medical problem list: Chest pain secondary to ST elevation [place] status post heart catheterization showing proximal LAD stenosis status post stent placement Hypotension Acute renal insufficiency suspect underlying chronic renal disease stage III with noted mild left sided hydronephrosis Hyperlipidemia Brief History of Present Illness: 70-year-old male presented with chest pain. Patient reported substernal chest pain that started about 30 minutes prior to being seen in the ER. This did not radiate. He had some nausea with diaphoresis. Patient denied any significant syncope or shortness of breath. This was just a single episode. It was worse in the ER. In the ER patient was evaluated. Troponin elevated. Patient with ST elevation [place]. Cardiology was consulted. Cardiology immediately intervened and took the patient to heart cath. Heart catheterization performed showed stenosis to the proximal LAD. Stent was placed. Patient now stable without significant chest pain. I was consulted to help admit the patient and monitor overnight. Patient is seen by Dr. Blackmon. Dr. Blackmon was not available and asked me to see the patient for him today. Hospital Course: Patient presented with chest pain secondary to ST elevation [place]. Patient was admitted for treatment. Patient immediately went to heart catheterization. Heart catheterization performed by cardiology. Patient had proximal LAD stenosis with stent placement. Patient did well post heart catheterization. Chest pain resolved. Patient had low blood pressure during the course of his stay. Nitropaste was removed. Patient given IV fluids with improvement. At discharge blood pressure remained stable. No further intervention was required. At discharge patient will continue with aspirin 80 mg daily, Brilinta 90 mg 1 pill twice daily, and Lipitor 40 mg daily. No need for blood pressure medications at this time. Recommend to monitor blood pressure daily. If blood pressure remains above 140/90 patient may require blood pressure medication. This can be further addressed by cardiology. At discharge patient will follow up with cardiology within 1 week to follow-up his hospitalization. Patient had acute renal insufficiency likely with chronic renal disease stage III. Renal ultrasound shows mild left hydronephrosis. Bladder scan unremarkable. Nephrology was consulted to further address. Patient continued with IV fluids with improvement. Patient with good urinary output. Nephrology recommends no further intervention at this time. Renal function improved. Recommend follow-up with nephrology in 1 to 2 weeks to follow-up hospitalization. Nephrology will repeat labBMP within 1 week. Nephrology will also order repeat ultrasound within 1 week to monitor resolution of hydronephrosis. If this persists patient may require special renal scan to further evaluate. Patient with hyperlipidemia. LDL 144. At discharge patient will continue with Lipitor 40 mg daily. Commend to recheck fasting lipid panel in 6 to 8 weeks to monitor his progress. Vital Signs/Physical Exam: Temp Pulse Resp BP Pulse Ox 97.6 F 82 20 92/52 L 96 01/09/21 08:37 01/09/21 08:37 01/09/21 08:37 01/09/21 08:37 01/09/21 08:37 General: Alert, In no apparent distress, Oriented x3, Cooperative HEENT: Atraumatic Neck: Supple Respiratory: Clear to auscultation bilaterally, Normal air movement Cardiovascular: Normal pulses, Regular rate/rhythm Gastrointestinal: Normal bowel sounds, No ascites, No tenderness, No masses, No rebound, No guarding Musculoskeletal: No erythema, No tenderness, No warmth Integumentary: No tenderness/swelling, No erythema, No warmth, No cyanosis Neurological: Normal speech, Normal strength at 5/5 x4 extr, Normal tone Laboratory Data at Discharge: WBC 6.60 K/uL (4.3-10.9) D 01/09/21 03:54 Hgb 11.9 g/dL (13.6-17.9) L 01/09/21 03:54 Hct 35.9 % (39.6-49.0) L 01/09/21 03:54 Plt Count 162 K/uL (152-406) D 01/09/21 03:54 PT 11.0 SECONDS (9.5-12.5) 01/07/21 08:00 INR 0.96 01/07/21 08:00 APTT 56.8 SECONDS (24.3-36.9) H 01/08/21 09:55 Sodium 140 mmol/L (136-145) 01/09/21 03:54 Potassium 4.3 mmol/L (3.5-5.1) 01/09/21 03:54 BUN 31 mg/dL (7-18) H 01/09/21 03:54 Creatinine 1.74 mg/dL (0.55-1.3) H 01/09/21 03:54 Glucose 92 mg/dL (74-106) 01/09/21 03:54 Phosphorus 2.2 mg/dL (2.5-4.9) L 01/09/21 03:54 Magnesium 2.0 mg/dL (1.8-2.4) 01/09/21 03:54 Total Bilirubin 0.7 mg/dL (0.2-1.0) 01/09/21 03:54 AST 78 U/L (15-37) H 01/09/21 03:54 ALT 22 U/L (12-78) 01/09/21 03:54 Alkaline Phosphatase 80 U/L (45-117) 01/09/21 03:54 Troponin I 85.90 ng/mL (0.0-0.045) H* D 01/07/21 19:19 Triglycerides 96 mg/dL (<150) 01/08/21 04:09 Cholesterol 211 mg/dL (<200) H 01/08/21 04:09 HDL Cholesterol 48 mg/dL (40-60) 01/08/21 04:09 Cholesterol/HDL Ratio 4.40 01/08/21 04:09 Home Medications: Loratadine [Claritin*] 10 mg PO DAILY 01/07/21 Aspirin [Aspirin EC 81 MG] 81 mg PO DAILY #90 tablet. 01/09/21 Atorvastatin Calcium [Lipitor] 40 mg PO BEDTIME #30 tab 01/09/21 Ticagrelor [Brilinta*] 90 mg PO BID #60 tablet 01/09/21 New Medications: Aspirin [Aspirin EC 81 MG] 81 mg PO DAILY #90 tablet. Ticagrelor [Brilinta*] 90 mg PO BID #60 tablet Atorvastatin Calcium [Lipitor] 40 mg PO BEDTIME #30 tab Physician Discharge Instructions: Patient presented with chest pain secondary to ST elevation [place]. Patient was admitted for treatment. Patient immediately went to heart catheterization. Heart catheterization performed by cardiology. Patient had proximal LAD stenosis with stent placement. Patient did well post heart catheterization. Chest pain resolved. Patient had low blood pressure during the course of his stay. Nitropaste was removed. Patient given IV fluids with improvement. At discharge blood pressure remained stable. No further intervention was required. At discharge patient will continue with aspirin 80 mg daily, Brilinta 90 mg 1 pill twice daily, and Lipitor 40 mg daily. No need for blood pressure medications at this time. Recommend to monitor blood pressure daily. If blood pressure remains above 140/90 patient may require blood pressure medication. This can be further addressed by cardiology. At discharge patient will follow up with cardiology within 1 week to follow-up his hospitalization. Patient had acute renal insufficiency likely with chronic renal disease stage III. Renal ultrasound shows mild left hydronephrosis. Bladder scan unremarkab le. Nephrology was consulted to further address. Patient continued with IV fluids with improvement. Patient with good urinary output. Nephrology recommends no further intervention at this time. Renal function improved. Recommend follow-up with nephrology in 1 to 2 weeks to follow-up hospitalization. Nephrology will repeat labBMP within 1 week. Nephrology will also order repeat ultrasound within 1 week to monitor resolution of hydronephrosis. If this persists patient may require special renal scan to further evaluate. Patient with hyperlipidemia. LDL 144. At discharge patient will continue with Lipitor 40 mg daily. Commend to recheck fasting lipid panel in 6 to 8 weeks to monitor his progress. Diet: AHA Activity: Ad sarath Followup: Juan Blackmon MD [Primary Care Provider] - Time spent managing pt's care (in minutes): 55
[2021-01-09] MEDS: TICAGRELOR 90 MG TABLET PO SCH (09:25)
[2021-01-09] MEDS: FAMOTIDINE 20 MG TAB PO SCH (09:25)
[2021-01-09] MEDS: ASPIRIN EC 81 MG TAB PO SCH (09:25)
[2021-01-09] MEDS ORDERED: POTASS/SODIUM PHOSPHATE 1 PKT POWD.PACK PO ONE (11:00)
[2021-01-09 11:43] VITALS: O2SAT 95
--- NOTE | 2021-01-09 14:24 | EKG ---
Test Date: 2021-01-08 Test Time: 09:34:35 Brine Supervisor: KEATON MEASUREMENT RESULTS: Intervals: Rate: 74 OR: 158 QRSD: 82 QT: 422 QTc: 468 Bimble: P: 71 OR: 158 QRS: 27 T: 213 INTERPRETIVE STATEMENTS: Normal sinus rhythm Low voltage QRS Septal infarct, age undetermined T wave abnormality, consider inferior ischemia T wave abnormality, consider anterolateral ischemia Abnormal ECG Compared to ECG 01/07/2021 10:42:45 T-wave abnormality now present Possible ischemia now present Myocardial infarct finding still present Electronically Signed On 01-09-21 14:21:46 CDT by Sadiq Guan
[2021-01-09] MEDS ORDERED: ATORVASTATIN 40 MG TAB PO SCH (21:00)
[2021-01-09 21:16] VITALS: BP 92/52; TEMP 97.6
--- NOTE | 2021-01-10 14:25 | PN ---
Date of Progress Note: 01/08/2021 Subjective: Mr. Justice is a patient who came in with an acute anterior [place] and hypotension requiring an emergency angioplasty and stent by Dr. Loco. Overnight, he has done great. His groin site was intact. Objective: Vital Signs: His blood pressure is 107/58. He is not having any arrhythmia. He is afeb rile. He is in sinus rhythm at a rate of 61, adequate O2 saturation. Chest: Clear. However, he was found to have renal dysfunction. His creatinine was 2.35 when he came in. Nephrolog y is on the case. Troponin peaked at 85. The patient needs to continue his present regimen includin g aspirin, metoprolol, Tricor, and lisinopril. I think we need to stop his heparin today after 24 ho urs of his initiation and if he continues to do so well in the morning so he can probably go home and follow up with Dr. Loco in the next 2 weeks. ALFRED/UNIQUE Voice ID: [id number] Report ID: [id number]
== END 2021-01-09 13:54 | disposition home or self-care (01) | DRG 247 ==
LOC: ER 07:51 → ERHOLD 09:11 → 2ND 23:14
PROVIDERS: ADMIT Family Medicine; ATTEND Family Medicine
PROC: 027034Z Dilation of Coronary Artery, One Artery with Drug-eluting Intraluminal Device, Percutaneous Approach (ICD-10-PCS; principal; 2021-01-07)
PROC: 4A023N7 Measurement of Cardiac Sampling and Pressure, Left Heart, Percutaneous Approach (ICD-10-PCS; 2021-01-07)
PROC: B2111ZZ Fluoroscopy of Multiple Coronary Arteries using Low Osmolar Contrast (ICD-10-PCS; 2021-01-07)
DX: I21.09 ST elevation (STEMI) myocardial infarction involving other coronary artery of anterior wall (principal); N17.9 Acute kidney failure, unspecified; N13.30 Unspecified hydronephrosis; E86.0 Dehydration; N28.9 Disorder of kidney and ureter, unspecified; E78.5 Hyperlipidemia, unspecified; I95.9 Hypotension, unspecified; I12.9 Hypertensive chronic kidney disease with stage 1 through stage 4 chronic kidney disease, or unspecified chronic kidney disease; N18.30 Chronic kidney disease, stage 3 unspecified; Z79.82 Long term (current) use of aspirin; Z79.899 Other long term (current) drug therapy; Z20.822 Contact with and (suspected) exposure to COVID-19
CPT/HCPCS: 36415; 76770; 80048; 80053; 80061; 80076; 81001; 82550; 82570; 83735; 83880; 83935; 84100; 84132; 84156; 84300; 84439; 84443; 84484; 85014; 85018; 85025; 85347; 85610; 85730; 92928; 93005; 93306; 93454; 96374; 96375; 99285; C1725; C1893; J0153; J1644; J2250; J2405; J3010; J7030; J7040; J7060; U0003

== ENCOUNTER 2021-01-29 12:03 | Emergency (ER) | payer OTHER, BC ==
--- OUTSIDE RECORDS SUMMARY | 2021-01-29 12:08 | XMS REPORT | Clinical Summary ---
:1950 Author Organization [facility] Address [address] [place] [address] Care Team Providers Name Role Phone Ani Blackmon MD Unavailable Sung Floyd MD Unavailable Sung Parker MD Primary Care Provider Allergies No known active allergies Medications Medication Sig Dispensed Refills Start Date End Date Status multivitamin tab Take 1 tablet by 0 Active tablet mouth daily. ascorbic acid, vitamin Take 1,000 mg by 0 Active C, (vitamin C) 1000 mg mouth daily. tablet cholecalciferol, Take 400 Units by 0 Active vitamin D3, (VITAMIN mouth daily. D3) 5,000 units tab tablet triamcinolone Apply topically to 80 g 0 09/02/2020 Active (KENALOG) ointment affected area(s) 3 0.1%Indications: (three) times a Radiation dermatitis day. Additional Information Patient not taking. Reason: No longer taking, Reported on 10/28/2020 acetaminophen (TYLENOL) Take 2 tablets 60 tablet 0 10/13/2020 Active 325 mg (650 mg) by tabletIndications: mouth every 6 [place] (six) hours as needed for mild pain. senna-docusate Take 2 tablets 60 tablet 0 10/13/2020 Active (SENOKOT-S) 8.6 mg-50 mg by mouth 2 tabletIndications: (two) times a [place]coma day as needed for constipation. Take while taking pain medications. Hold for diarrhea/loose stools. traMADol (ULTRAM) 50 mg Take 1 tablet 12 tablet 0 10/13/2020 Active tabletIndications: (50 mg) by [place]coma mouth every 6 (six) hours as needed for moderate pain or severe pain. Do not drive while taking. Hold if sedated. methocarbamol (ROBAXIN) Take 1 tablet 30 tablet 0 10/13/2020 0 (Stop 500 mg (500 mg) by 2020 Taking a t tabletIndications: mouth every 8 Discharge) [place]coma (eight) hours as needed for muscle spasms. Active Problems Problem Noted Date Chronic kidney disease 10/13/2020 Hearing loss 08/13/2020 [place] 07/16/2020 Cancer Staging: Clinical: Stage II (cT1, cN0, cM0, FNCLCC histologic grade: G2) - Signed by William Parker MD on 11/04/2020 Encounters Date Type Specialty Care Team Description 01/11/2021 Telephone [place]coma Surgery Lisa Haas PA 10/28/2020 Office Visit [facility] Surgery Rachel Parker MD 10/28/2020 Office Visit Plastic Surgery Mermildred, Sarcoma MD Bruno 10/28/2020 Orders Only [place]coma Surgery Rachel Haas (Georgie JAD David Dx) 10/28/2020 Travel 10/13/2020 Orders Only [place]coma Surgery Nicole Gruber Sarcoma (Primary JAD Magaña Dx) 10/12/2020 Surgery Elena, EXCISION OF DAVID OR William OF SOFT TISSUE OF MD Sung RIGT CHEST WALL 10/12/2020 Anesthesia Event Shruti Valentine MD Pichon, Alvin, CRNA 10/12/2020 Hospital Encounter Gastrointestinal Mily Parker ma (Primary - Surgery William Dx) 10/13/2020 MD Sung 10/12/2020 Travel 10/09/2020 Anesthesia Event Anesthesiology Deepika Rodriguez MA 10/09/2020 POEM Appointments Anesthesiology Rachel Haas; JAD Gonzalez Pre-surgery lazara luation 10/09/2020 Hospital Encounter Lab Rachel Haas PA 10/09/2020 Clinical Support Infectious Diseases Amalia Haas ected COVID-19 (Primary Dx); JAD Gonzalez Sarcoma Nya Castro RN 10/09/2020 Travel 10/07/2020 Office Visit [facility]coma Surgery Rachel Parker (Georgie Almaraz MD 10/07/2020 Consult Plastic Surgery Mermildred, Sarcoma MD Bruno 10/07/2020 Ancillary Procedure Radiology Waldo, Sarcoma JAD Gonzalez 10/07/2020 Documentation Sarcoma Faith Umana 10/07/2020 Travel 09/07/2020 Hospital Encounter Radiation Oncology William Parker MD 09/07/2020 Documentation Radiation Oncology Jenny Roman MD 09/07/2020 Travel 09/04/2020 Hospital Encounter Radiation Oncology William Parker MD 09/04/2020 Travel 09/03/2020 Hospital Encounter Radiation Oncology William Parker MD 09/03/2020 Travel 09/02/2020 Hospital Encounter Radiation Oncology William Parker MD 09/02/2020 Hospital Encounter Radiation Oncology Jenny Roman MD 09/02/2020 Orders Only Radiation Oncology Shannon Yang, Sarc kory (Primary Dx); JAD Radiation derma titis 09/02/2020 Travel 09/01/2020 Hospital Encounter Radiation Oncology William Parker MD 09/01/2020 Travel 08/31/2020 Hospital Encounter Radiation Oncology William Parker MD 08/31/2020 Travel 08/28/2020 Hospital Encounter Radiation Oncology William Parker MD 08/28/2020 Travel 08/27/2020 Hospital Encounter Radiation Oncology William Parker MD 08/27/2020 Travel 08/26/2020 Hospital Encounter Radiation Oncology William Parker MD 08/26/2020 Hospital Encounter Radiation Oncology Jenny Roman MD 08/26/2020 Travel 08/25/2020 Hospital Encounter Radiation Oncology William Parker MD 08/25/2020 Travel 08/24/2020 Hospital Encounter Radiation Oncology William Parker MD 08/24/2020 Travel 08/21/2020 Hospital Encounter Radiation Oncology William Parker MD 08/21/2020 Travel 08/20/2020 Hospital Encounter Radiation Oncology William Parker MD 08/20/2020 Travel 08/19/2020 Hospital Encounter Radiation Oncology William Parker MD 08/19/2020 Hospital Encounter Radiation Oncology Jenny Roman MD 08/19/2020 Travel 08/18/2020 Hospital Encounter Radiation Oncology William Parker MD 08/18/2020 Travel 08/17/2020 Hospital Encounter Radiation Oncology William Parker MD 08/17/2020 Travel 08/14/2020 Hospital Encounter Abdifatah Hernandez MD 08/14/2020 Hospital Encounter Radiation Oncology William Parker MD 08/14/2020 Travel 08/13/2020 Hospital Encounter Radiation Oncology William Parker MD 08/13/2020 Travel 08/12/2020 Hospital Encounter Radiation Oncology William Parker MD 08/12/2020 Hospital Encounter Radiation Jenny Alberto MD 08/12/2020 Travel 08/11/2020 Hospital Encounter Radiation Oncology William Parker MD 08/11/2020 Travel 08/07/2020 Hospital Encounter Radiation Oncology William Parker MD 08/07/2020 Orders Only Sarcoma Surgery Waldo, Sarcoma (Georgie JAD David Dx) 08/07/2020 Travel 08/07/2020 Orders Only Sarcoma Surgery Waldo, Sarcoma (Georgie JAD David Dx) 08/07/2020 Prep for Surgery Sarcoma Surgery Waldo, Sarcoma (Primary Lisa, JAD Dx) 08/06/2020 Hospital Encounter Radiation Oncology William Parker MD 08/06/2020 Travel 08/05/2020 Hospital Encounter Radiation Oncology William Parker MD 08/05/2020 Hospital Encounter Radiation Oncology Jenny Roman MD 08/05/2020 Travel 08/04/2020 Hospital Encounter Radiation Oncology William Parker MD 08/04/2020 Travel 08/03/2020 Hospital Encounter Radiation William Witt MD 08/03/2020 Documentation Radiation Jenny Alberto MD 08/03/2020 Travel 07/29/2020 Documentation Radiation Jenny Alberto MD 07/27/2020 Hospital Encounter Radiation Oncology William Parker MD 07/23/2020 Lab Requisition eLe Shaikh MD Cox, Bettye L, MD 07/22/2020 Hospital Encounter Radiation Oncology Jenny Roman MD 07/22/2020 Documentation Radiation Oncology Jenny Roman MD 07/22/2020 Documentation Radiation Oncology Jenny Roman MD 07/22/2020 Travel 07/21/2020 Hospital Encounter Radiation Oncology Waldo, Markie coma Lisa, PA Jenny Roman MD 07/21/2020 Travel 07/20/2020 Ancillary Procedure Radiology Elena, Cancer William Almaraz MD 07/20/2020 Ancillary Procedure Radiology Waldo, Sarcoma Lisa, PA 07/20/2020 Hospital Encounter Cardiology Waldo, Sarcoma Lisa, PA 07/20/2020 Hospital Encounter Radiology Waldo, Sarcoma Lisa, PA 07/20/2020 Hospital Encounter Lab Waldo, Sarcoma Lisa, PA 07/20/2020 Office Visit Sarcoma Surgery Elena, Sarcoma (Georgie Thomas Dx) MD Sung 07/20/2020 NPR Patient Access Elena, Services William Almaraz MD 07/20/2020 Travel 07/18/2020 Clinical Support Infectious Diseases Eugenia Parker for William observation for MD Sung other suspected [place], exposure to Lenore C, MA biological a gent ruled out (Primary Dx) 07/18/2020 Travel 07/15/2020 Travel 07/14/2020 Orders Only Sarcoma Surgery Waldo, Sarcoma (Georgie Gonzalez, PA Dx) 07/10/2020 Travel after 01/30/2020 Immunizations Name Administration Dates Next Due Moderna SARS-CoV-2 Vaccination 05/16/2020, 04/18/2020 Surgical History Surgery Date Site/Laterality Comments PHACOEMULSIFICATION CATARACT 03/13/2017 - Right 03/12/2018 REPAIR OF SUPERFICIAL WOUNDS: Left anthony nd, laceration SCALP/NECK/AX/GENIT/TRUNK repair due to fishing W/HANDS &FEET accident [place] EXC TUMOR SOFT TISSUE 10/12/2020 Chest/Right Procedu re: EXCISION OF NECK/ANT THORAX SUBFASCIAL TUMOR OF SOFT TISSUE 5+CM OF RIGT CHEST WA LL; Surgeon: Asif Parker MD; Location: MAIN O R; Service: SURG ON C - [place] RECMPL WND TRUNK 1.1-2.5 CM 10/12/2020 Chest/N/A P rocedure: COMPLEX REPAIR OF TRUNK; Surgeon: Vicky Tolbert MD; Location: MAIN O R; Service: PLS - P LASTIC SURGERY Medical History Medical History Date Comments Hyperlipidemia Hearing loss 1974 Asbestosis Pneumonia Gastric ulcer 1971 Gout Squamous cell carcinoma in situ of skin Family History Medical History Relation Name Comments Lung cancer Brother Clayton Justice in 1999 Relation Name Status Comments Brother Clayton Justice Social History Tobacco Use Types Packs/Day Years Used Date Never Smoker 0 0 Smokeless Tobacco: Current User Snuff Tobacco Cessation: Ready to Quit: No Alcohol Use Standard Drinks/Week Comments Yes 2 (1 standard drink = 0.6 oz pure alcoho l) Sex Assigned at Date Recorded Male 09/02/2020 12:29 PM CDT Job Start Date Occupation Industry Not on file Not on file Not on file Obstetrics History Last Filed Vital Signs Vital Sign Reading Time Taken Comments Blood Pressure 130/83 10/28/2020 8:39 AM CDT Pulse 70 10/28/2020 8:39 AM CDT Temperature 36.7 C (98.1 F) 10/28/2020 8:39 AM CDT Respiratory Rate 16 10/28/2020 8:39 AM CDT Oxygen Saturation 95% 10/13/2020 7:05 AM CDT Inhaled Oxygen Concentration - - Weight 79 kg (174 lb 2.6 oz) 10/13/2020 5:16 AM CDT Height 172.7 cm (5' 8") 10/12/2020 6:50 PM CDT Body Mass Index 26.48 10/12/2020 6:50 PM CDT Plan of Treatment Date Type Specialty Care Team Description 03/23/2021 Ancillary Procedure Radiology Lisa Haas PA [address] [place], [place] [address] (Wo rk) 03/23/2021 Ancillary Procedure Radiology Lisa Haas PA [address] [place], [place] [address] (Wo rk) 03/24/2021 Office Visit Sarcoma Surgery William Parker MD [address] [place], [place] [address] (Wo rk) 03/24/2021 Appointment Radiation Oncology Hempel, JAD Elias [address] [place], [place] [address] (Wo rk) Health Maintenance Due Date Last Done Comments COVID-19 Vaccination (3 - Moderna risk 06/13/2020 , 04/18/2020 4-dose series) Procedures Procedure Name Priority Date/Time Associated Comments Diagnosis CALCIUM IONIZED, VENOUS AM 10/13/2020 3:25 Results for this AM CDT procedure are i n the results section. .GLOMERULAR FILTRATION AM 10/13/2020 3:25 R esults for this RATE AM CDT procedure are i n the results section. SERUM CREATININE AM 10/13/2020 3:25 Results for this AM CDT procedure are i n the results section. ELECTROLYTE PANEL AM 10/13/2020 3:25 Result s for this AM CDT procedure are i n the results section. BLOOD UREA NITROGEN AM 10/13/2020 3:25 Resu lts for this AM CDT procedure are i n the results section. GLUCOSE LEVEL AM 10/13/2020 3:25 Results fo r this AM CDT procedure are i n the results section. MANUAL DIFFERENTIAL AM 10/13/2020 3:25 Resu lts for this AM CDT procedure are i n the results section. Results CBC AM 10/13/2020 3:25 Results for this AM CDT procedure are i n the results section. PHOSPHORUS LEVEL AM 10/13/2020 3:25 Results for this AM CDT procedure are i n the results section. MAGNESIUM LEVEL AM 10/13/2020 3:25 Results for this AM CDT procedure are i n the results section. BASIC METABOLIC PANEL, AM 10/13/2020 3:25 CALCIUM IONIZED AM CDT COMPLETE BLOOD COUNT W/ AM 10/13/2020 3:25 DIFFERENTIAL AM CDT PATHOLOGY SURGICAL Routine 10/12/2020 7:43 [place]coma Resul ts for this INTERPRETATION AM CDT procedure are in the results section. COMPLEX REPAIR OF TRUNK 10/12/2020 6:24 [place]coma AM CDT Special Needs Protocol: [id number] @ 050 0 EXCISION OF TUMOR OF SOFT TISSUE OF NECK/ANTERIOR 10/12/2020 6:24 AM CDT [place] THORAX Special Needs Protocol: [id number] @ 050 0 MANUAL DIFFERENTIAL STAT 10/09/2020 12:17 Resu lts for this PM CDT procedure are i n the results section. HC ROUTINE VENIPUNCTURE- STAT 10/09/2020 12:17 Results for this [facility] PM CDT procedure are in the results section. TMP INTERPRETATION Routine 10/09/2020 10:57 Resul ts for this ANTIBODY SCREEN NEGATIVE AM CDT pro cedure are in the results section. CLOT EXPIRATION DATE Routine 10/09/2020 10:57 Res ults for this AM CDT procedure are i n the results section. ANTIBODY SCREEN Routine 10/09/2020 10:57 [place] Results for this AM CDT procedure are i n the results section. ABORH Routine 10/09/2020 10:57 [place] Results for this AM CDT procedure are i n the results section. FRACTIONATED BILIRUBIN Routine 10/09/2020 10:57 [place]coma R esults for this AM CDT procedure are i n the results section. TOTAL PROTEIN Routine 10/09/2020 10:57 [place] Results fo r this AM CDT procedure are i n the results section. ASPARTATE Routine 10/09/2020 10:57 [place] Results for this AMINOTRANSFERASE AM CDT procedure a re in the results section. ALANINE AMINOTRANSFERASE Routine 10/09/2020 10:57 [place] Results for this AM CDT procedure are i n the results section. ALKALINE PHOSPHATASE Routine 10/09/2020 10:57 [place] Res ults for this AM CDT procedure are i n the results section. ALBUMIN LEVEL Routine 10/09/2020 10:57 [place] Results fo r this AM CDT procedure are i n the results section. CALCIUM LEVEL TOTAL Routine 10/09/2020 10:57 [place] Resu lts for this AM CDT procedure are i n the results section. .GLOMERULAR FILTRATION Routine 10/09/2020 10:57 [place] R esults for this RATE AM CDT procedure are i n the results section. SERUM CREATININE Routine 10/09/2020 10:57 [place] Results for this AM CDT procedure are i n the results section. ELECTROLYTE PANEL Routine 10/09/2020 10:57 [place] Result s for this AM CDT procedure are i n the results section. BLOOD UREA NITROGEN Routine 10/09/2020 10:57 [place] Resu lts for this AM CDT procedure are i n the results section. GLUCOSE LEVEL Routine 10/09/2020 10:57 [place] Results fo r this AM CDT procedure are i n the results section. PHOSPHORUS LEVEL Routine 10/09/2020 10:57 [place] Results for this AM CDT procedure are i n the results section. MAGNESIUM LEVEL Routine 10/09/2020 10:57 [place] Results for this AM CDT procedure are i n the results section. TYPE AND SCREEN Routine 10/09/2020 10:57 [place] AM CDT COMPREHENSIVE METABOLIC Routine 10/09/2020 10:57 [place] PANEL AM CDT APTT Routine 10/09/2020 10:57 [place] Results for this AM CDT procedure are i n the results section. PROTHROMBIN TIME Routine 10/09/2020 10:57 [place] Results for this AM CDT procedure are i n the results section. COVID-19 (SARS-COV-2) Routine 10/09/2020 10:04 Suspected COVID -19 Results for this PCR-ASYMPTOMATIC MC AM CDT procedur e are in the results section. MRI CHEST W WO CONTRAST Routine 10/07/2020 7:31 [place] Results for this - RIBS/CHEST WALL AM CDT procedure are in the results section. MRI CHEST W WO CONTRAST Routine 07/20/2020 8:27 [place] Results for this - RIBS/CHEST WALL PM CDT procedure are in the results section. CT CHEST W CONTRAST Routine 07/20/2020 1:39 [place] Resu lts for this PM CDT procedure are i n the results section. POC CREATININE Routine 07/20/2020 1:00 Results f or this PM CDT procedure are i n the results section. TMP INTERPRETATION Routine 07/20/2020 12:28 Resul ts for this ANTIBODY SCREEN NEGATIVE PM CDT pro cedure are in the results section. CLOT EXPIRATION DATE Routine 07/20/2020 12:28 Res ults for this PM CDT procedure are i n the results section. ANTIBODY SCREEN Routine 07/20/2020 12:28 [place] Results for this PM CDT procedure are i n the results section. ABORH Routine 07/20/2020 12:28 [place] Results for this PM CDT procedure are i n the results section. MANUAL DIFFERENTIAL Routine 07/20/2020 12:28 [place] Resu lts for this PM CDT procedure are i n the results section. Results CBC Routine 07/20/2020 12:28 [place] Results for this PM CDT procedure are i n the results section. FRACTIONATED BILIRUBIN Routine 07/20/2020 12:28 [place] R esults for this PM CDT procedure are i n the results section. TOTAL PROTEIN Routine 07/20/2020 12:28 [place] Results fo r this PM CDT procedure are i n the results section. ASPARTATE Routine 07/20/2020 12:28 [place] Results for this AMINOTRANSFERASE PM CDT procedure a re in the results section. ALANINE AMINOTRANSFERASE Routine 07/20/2020 12:28 [place] Results for this PM CDT procedure are i n the results section. ALKALINE PHOSPHATASE Routine 07/20/2020 12:28 [place] Res ults for this PM CDT procedure are i n the results section. ALBUMIN LEVEL Routine 07/20/2020 12:28 [place] Results fo r this PM CDT procedure are i n the results section. CALCIUM LEVEL TOTAL Routine 07/20/2020 12:28 [place] Resu lts for this PM CDT procedure are i n the results section. .GLOMERULAR FILTRATION Routine 07/20/2020 12:28 [place] R esults for this RATE PM CDT procedure are i n the results section. SERUM CREATININE Routine 07/20/2020 12:28 [place] Results for this PM CDT procedure are i n the results section. ELECTROLYTE PANEL Routine 07/20/2020 12:28 [place] Result s for this PM CDT procedure are i n the results section. BLOOD UREA NITROGEN Routine 07/20/2020 12:28 [place] Resu lts for this PM CDT procedure are i n the results section. GLUCOSE LEVEL Routine 07/20/2020 12:28 [place] Results fo r this PM CDT procedure are i n the results section. CONFIRM ABORH TYPE Routine 07/20/2020 12:28 Resul ts for this PM CDT procedure are i n the results section. HEMOGLOBIN A1C Routine 07/20/2020 12:28 [place] Results f or this PM CDT procedure are i n the results section. COMPLETE BLOOD COUNT W/ Routine 07/20/2020 12:28 [place] DIFFERENTIAL PM CDT PREALBUMIN Routine 07/20/2020 12:28 [place] Results for this PM CDT procedure are i n the results section. PHOSPHORUS LEVEL Routine 07/20/2020 12:28 [place] Results for this PM CDT procedure are i n the results section. MAGNESIUM LEVEL Routine 07/20/2020 12:28 [place] Results for this PM CDT procedure are i n the results section. TYPE AND SCREEN Routine 07/20/2020 12:28 [place] PM CDT PROTHROMBIN TIME Routine 07/20/2020 12:28 [place] Results for this PM CDT procedure are i n the results section. APTT Routine 07/20/2020 12:28 [place] Results for this PM CDT procedure are i n the results section. COMPREHENSIVE METABOLIC Routine 07/20/2020 12:28 [place] PANEL PM CDT EKG, 12-LEAD (SCHEDULED) Routine 07/20/2020 [place] COVID-19 (SARS-COV-2) Routine 07/18/2020 4:09 Encounter for R esults for this PCR-ASYMPTOMATIC MC PM CDT observation for erinn de la o are in other suspected the results exposure to section. biological agent ruled out HC FISH ANALYSIS REV CG Routine 06/30/2020 4:54 PM CDT HP CYTOGENETICS BLOOD Routine 06/30/2020 4:54 Re sults for this COLLECTION PM CDT procedure are i n the results section. PATHOLOGY OUTSIDE Routine 06/30/2020 Results fo r this INTERPRETATION procedure are in the results section. OSI MRI CHEST Routine 06/15/2020 12:24 Cancer Results fo r this PM CDT procedure are i n the results section. after 01/30/2020 Results (ABNORMAL) .Serum Creatinine (10/13/2020 3:25 AM CDT)Only the most recent of3 resultswithin the time period is included. Pathologist Sig nature Creatinine 1.40 (H) 0.67 - 1.17 mg/dL [facility] Specimen Blood Performing Organization Address City/State/ZIP Code Phon e Number [facility] Unless otherwise noted, [place] [address] CENTER all lab tests performed by: Division of Pathology and Laboratory Medicine [address] (ABNORMAL) .CBC (10/13/2020 3:25 AM CDT)Only the most recent of3 resultswithin the time period is included. WBC 8.3 4.0 - 11.0 [facility] K/uL [facility] RBC 4.74 4.50 - 6.00 [facility] M/uL [facility] Hgb 13.6 (L) 14.0 - 18.0 [facility] gm/dL [facility] Hct 40.7 40.0 - 54.0 % [facility] MCV 86 82 - 98 fL [facility] MCH 28.7 27.0 - 31.0 pg [facility] MCHC 33.4 31.0 - 36.0 [facility] gm/dL [facility] RDW-SD 43.4 35.1 - 46.3 fL [facility] RDW-CV 13.8 12.0 - 15.5 % [facility] Platelet count 226 140 - 440 K/uL [facility] MPV 10.3 4.0 - 10.4 fL [facility] INRBC 0.0 <=0.0 % [facility] Comment: [facility] The INRBC (instrument NRBC) value reflects the enumera tion of nucleated red blood cells contained in a 200uL samp le of whole blood analyzed by the instrument. This value may differ from the NRBC value reported in a manual differ ential, which is based on a 100 cell differential. Specimen Blood Performing Organization Address City/State/ZIP Code Phon e Number [facility] Unless otherwise noted, [place] [address] [place] all lab tests performed by: Division of Pathology and Laboratory Medicine [facility] (ABNORMAL) Glomerular Filtration Rate (10/13/2020 3:25 AM CDT)Only the most recent of3 resultswithin the time period is included. eGFR-AA 58 (L) >=60 [facility] Comment: mL/min/1.73 [facility] Normal eGFR: >= 60 mL/min/1.73 m2 sq. m Note: The eGFR is calculated using the CKD-EPI equation. The eGFR declines with age. eGFR <60 mL/min/1.73 m2 is considered as "decreased". This equation should only be used for patients 18 and older. According to the National [facility]'s Kidney Disease Outcome Quality Initiative (KDOQI) classification and 2012 Kidney Disease Improving Global Outcomes (KDIGO) Clinical Practice Guideline, the stage of CKD should be categorized based on estimated GFR. Stage Description GFR mL/min/1.73 m2 1 Normal or high GFR >=90 2 Mildly decreased GFR 60-89 3a Mildly to moderately decreased GFR 45-59 3b Moderately to severely decreased GFR 30-44 4 Severely decreased GFR 15-29 5 Kidney failure <15 eGFR-KALEIGH 50 (L) >=60 [facility] Comment: mL/min/1.73 [facility] Normal eGFR: >= 60 mL/min/1.73 m2 sq. m Note: The eGFR is calculated using the CKD-EPI equation. The eGFR declines with age. eGFR <60 mL/min/1.73 m2 is considered as "decreased". This equation should only be used for patients 18 and older. According to the [facility]'s Kidney Disease Outcome Quality Initiative (KDOQI) classification and 2012 Kidney Disease Improving Global Outcomes (KDIGO) Clinical Practice Guideline, the stage of CKD should be categorized based on estimated GFR. Stage Description GFR mL/min/1.73 m2 1 Normal or high GFR >=90 2 Mildly decreased GFR 60-89 3a Mildly to moderately decreased GFR 45-59 3b Moderately to severely decreased GFR 30-44 4 Severely decreased GFR 15-29 5 Kidney failure <15 Specimen Blood Performing Organization Address City/State/ZIP Code Phon e Number [facility] Unless otherwise noted, [address] all lab tests performed by: Division of Pathology and Laboratory Medicine [address] Calcium Ionized, Venous (10/13/2020 3:25 AM CDT) Pathologist Sig nature V Ion Ca 1.17 1.15 - 1.29 mmol/L [facility] Specimen Blood Performing Organization Address City/State/ZIP Code Phon e Number [facility] Unless otherwise noted, [address] all lab tests performed by: Division of Pathology and Laboratory Medicine [address] (ABNORMAL) Differential (10/13/2020 3:25 AM CDT)Only the most recent of3 resultswithin the time period is included. Neutrophil % 83.2 (H) 42.0 - 66.0 % [facility] Lymphocyte % 9.2 (L) 24.0 - 44.0 % [facility] Monocyte % 7.1 (H) 2.0 - 7.0 % [facility] Eosinophil % 0.0 (L) 1.0 - 4.0 % [facility] Basophil % 0.1 0.0 - 1.0 % [facility] IGRE % 0.4Comment: IGRE % 0.0 - 0.4 % [facility] count includes [facility] Metamyelocytes, Myelocytes, and Promyelocytes. Neutrophil Abs 6.88 1.70 - 7.30 [facility] Lymphocyte Abs 0.76 (L) 1.00 - 4.80 [facility] Monocyte Abs 0.59 0.08 - 0.70 [facility] Eosinophil Abs 0.00 (L) 0.04 - 0.40 [facility] Basophil Abs 0.01 0.00 - 0.10 [facility] IG Abs 0.03 0.00 - 0.04 [facility] Specimen Blood Performing Organization Address City/[facility] Phon e Number [facility] Unless otherwise noted, [address] all lab tests performed by: Division of Pathology and Laboratory Medicine [address] BUN (10/13/2020 3:25 AM CDT)Only the most recent of3 resultswithin the time period is included. Pathologist Sig nature BUN 22 6 - 23 mg/dL [facility] Specimen Blood Performing Organization Address City/[facility] Code Phon e Number [facility] CANCER Unless otherwise noted, [address] all lab tests performed by: Division of Pathology and Laboratory Medicine [address] Phosphorus Level (10/13/2020 3:25 AM CDT)Only the most recent of3 resultswithin the time period is included. Pathologist Sig nature Phosphorus 3.0 2.5 - 4.5 mg/dL [facility] TER Specimen Blood Performing Organization Address City/[facility] Phon e Number [facility] Unless otherwise noted, [address] all lab tests performed by: Division of Pathology and Laboratory Medicine [address] Magnesium Level (10/13/2020 3:25 AM CDT)Only the most recent of3 resultswithin the time period is included. Pathologist Sig nature Magnesium 2.3 1.6 - 2.6 mg/dL [facility] CANC[facility] TER Specimen Blood Performing Organization Address [facility] Phon e Number [facility] Unless otherwise noted, [address] all lab tests performed by: Division of Pathology and Laboratory Medicine [address] [place] [address] Devers (ABNORMAL) Glucose Level (10/13/2020 3:25 AM CDT)Only the most recent of3 resultswithin the time period is included. Glucose Level 115 (H) 70 - 99 mg/dL [facility] Comment: CANCER CENTER Effective 10/07/15, the gluco se reference intervals have been updated based on [employer] Diabetes [employer] guidelines (Standards of Medical Care in Diabetes 2016. Diabetes Care 2016; 39: S13-S22). Fasting blood glucose: Normal: 70-99 mg/dL Impaired fasting glucose (in creased risk for diabetes or pre-diabetes): 100- 125 mg/dL Diabetes mellitus: >/=126 mg/dL Random blood glucose: Normal: 70-199 mg/dL Note: Random glucose >100 mg/dL is assoc iated with increased risk for diabetes Specimen Blood Performing Organization Address [facility] Phon e Number [facility] Unless otherwise noted, [address] all lab tests performed by: Division of Pathology and Laboratory Medicine [address] [place] [address] De[place] (ABNORMAL) Electrolyte Panel (10/13/2020 3:25 AM CDT)Only the most recent of3 resultswithin the time period is included. Pathologist Sig nature Sodium Lvl 138 136 - 145 mEq/L [facility] Potassium Lvl 4.4 3.5 - 5.1 mEq/L [facility] Chloride 105 98 - 107 mEq/L [facility] CO2 21 (L) 22 - 29 mEq/L [facility] Anion Gap 12 4 - 14 mEq/L [facility] Specimen Blood Performing Organization Address City/[facility] Phon e Number [facility] Unless otherwise noted, [address] all lab tests performed by: Division of Pathology and Laboratory Medicine [facility] Pathology Surgical Interpretation (10/12/2020 7:43 AM CDT) Pathologist Sig nature 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 by Talya Carmen MD Margins have been evaluated. Negative for tumor. Reactive changes extend to deep tissue edge. on 10/16/2020 at 10:12 AM B: Skin and soft tissue, right chest wall medial jaime n, excision: Skin and subcutis, negative for tumor Gross Description A: [facility] Chest wall, right, right elisha st wall excision, short stitch superior, long stitch lateral, double stitch: deep: 9.0 x 3.5 cm vidal-brown skin ellipse that has been excised to a depth of 1.7 cm that is bryson gnated with short stitch at superior, long stitch lateral and double stitch deep. The skin surface there is a 4.8 cm in length by 0.1 cm linear scar that is located 1.5 cm from superior, 1.5 cm from inferior, 2.3 cm from lateral and 1.5 cm from medial. The specimen is serially sectio mary lou from lateral to medial i nto 15 slices to reveal no definitive mass identified grossly. INK CODE: blue-superior, orange-inferior, black-deep SECTION CODE: A1, lateral ti p, ink side down; A2-A3, slice 4, bisected; A4-A5, slice 6, bisected; A6, superior half of slice 7; A7, superior half of slice 10; A8, inferior half of slice 11; A9, superfic ial half of slice 14; A10, medial tip, ink side down. JLA B: Chest wall, right, new right chest wall medial margin, ink arechiga true margin: A 3.0 x 3.0 x 1.0 cm triangular portion of skin that is designated along 2 aspects with ursula ink at the true margin. The true margin is inked a blue overlay. The specimen is serially sectioned and submitted entirely in cassettes B1-B5 (B5 to include tip, ink side down). JLA Disclaimer "Some tests reported [facility] here may have been developed and performance characteristics determined by [facility] Pathology and Laboratory Medicine. These tests have not been specifically cleared or approved by the U.S. Food and Drug Administration. If applicable, controls were reviewed and showed appropriate reactivity." Specimen Tissue - Chest Wall, Right Tissue - Chest Wall, Right Performing Organization Address City/State/ZIP Code Phon [place] [address] [address] Expiration Date (10/09/2020 10:57 AM CDT)Only the most recent of2 results within the time period is included. Pathologist Sig nature T & S Expiration 10/12/2020 [facility] Specimen Blood Performing Organization Address City/State/ZIP Code Phon e Number [facility] Unless otherwise noted, [place] [address] [address] all lab tests performed by: Division of Pathology and Laboratory Medicine [facility] [employer] Fractionated Bilirubin (10/09/2020 10:57 AM CDT)Only the most recent of2 results within the time period is included. Pathologist [facility] Bili Total 0.4 <=1.2 mg/dL [facility] Comment: DIAGNOSTIC CENTER Indocyanine Green (ICG) may cause falsely elevated bilirubin results. Total and direct bilirubin must not be measured from samples containing indocyanine green. False elevation of total yuriy irubin can be seen in patients with IgG concentrations above 28 g/L. Bili Direct <0.2Comment: <=0.3 mg/dL [facility] Indocyanine Green DIAGNOSTIC CENTER (ICG) may cause falsely elevated bilirubin results. Total and direct bilirubin must not be measured from samples containing indocyanine green. Bili Indirect See NoteComment: 0.0 - 0.9 [facility] Unable to calculate mg/dL DIAGNOSTIC CENTER Indirect Bilirubin result due to some parameters are outside reportable range Specimen Blood Performing Organization Address City/State/ZIP Code Phon e Number [facility] DIAGNOSTIC Unless otherwise noted, [place] [address] [address] all lab tests performed by: Division of Pathology and Laboratory Medicine [facility] [employer] TMP Interpretation Antibody Screen Negative (10/09/2020 10:57 AM CDT)Only the most recent of2 resultswithin the time period is included. Pathologist [facility] TMP Auto Neg ABSC At the present time, patien t plasma shows no evidence of RBC alloantibodies. [facility] Interp Comment: CANCER CENTER NUPUR KAPLAN, Dictated by: NUPUR KAPLAN, Dictated Date/Time: 10.10.19 16:58 PM CDT Transcribed Date/Time: 10.09.2020 16:58 PM CDT Electronically Signed By: NUPUR KAPLAN, on 021 16:58 PM Specimen Blood Performing Organization Address City/[facility]/ZIP Code Phon e Number [facility] Unless otherwise noted, [address] all lab tests performed by: Division of Pathology and Laboratory Medicine [address] [place] [address] Partial Thromboplastin Time (10/09/2020 10:57 AM CDT)Only the most recent of2 resultswithin the time period is included. Pathologist Sig rosemary aPTT 29.7 24.7 - 36.8 second(s) [facility] Specimen Blood Narrative [facility] - 11:45 AM CDT This lab cannot be scheduled at the foll owing locations due to collection/proccessing restrictions: [facility] and [facility]. Performing Organization Address City/[facility]/ZIP Code Phon e Number [facility] Unless otherwise noted, [address] all lab tests performed by: Division of Pathology and Laboratory Medicine [facility] [place] [address] ABORh (10/09/2020 10:57 AM CDT)Only the most recent of2 resultswithin the time period is included. Pathologist Sig [facility] ABORh. O NEG [facility] Specimen Blood Performing Organization Address City/[facility]/ZIP Code Phon e Number [facility] Unless otherwise noted, [address] all lab tests performed by: Division of Pathology and Laboratory Medicine [address] [place] [address] Prothrombin Time with INR (10/09/2020 10:57 AM CDT)Only the most recent of2 resultswithin the time period is included. Pathologist Sig nature PT 12.7 11.5 - 13.9 second(s) [facility] CAN ER CENTER INR 1.02 0.90 - 1.10 [facility] Specimen Blood Narrative [facility] - 11:45 AM CDT This lab cannot be scheduled at the foll owing locations due to collection/proccessing restrictions: [facility] and [facility]. Performing Organization Address City/[facility] Phon e Number [facility] Unless otherwise noted, [address] all lab tests performed by: Division of Pathology and Laboratory Medicine [address] Antibody Screen (10/09/2020 10:57 AM CDT)Only the most recent of2 resultswithin the time period is included. Pathologist Sig nature ABSC. Negative ABSC [facility] Specimen Blood Performing Organization Address [facility] Phon e Number [facility] CAN[facility] Unless otherwise noted, [address] all lab tests performed by: Division of Pathology and Laboratory Medicine [address] ALT (10/09/2020 10:57 AM CDT)Only the most recent of2 resultswithin the time period is included. Pathologist Sig nature ALT 18 <=41 U/L [facility] CE NTER Specimen Blood Performing Organization Address [facility] Phon e Number [facility] DIAGNOSTIC Unless otherwise noted, [address] all lab tests performed by: Division of Pathology and Laboratory Medicine [address] Aspartate Aminotransferase (10/09/2020 10:57 AM CDT)Only the most recent of2 resultswithin the time period is included. Pathologist Sig nature AST 28 <=40 U/L [facility] DIAGNOSTIC CE NTER Specimen Blood Performing Organization Address City/[facility] Phon e Number [facility] DIAGNOSTIC Unless otherwise noted, [address] all lab tests performed by: Division of Pathology and Laboratory Medicine [address] Total Protein (10/09/2020 10:57 AM CDT)Only the most recent of2 resultswithin the time period is included. Pathologist Sig nature Total Protein 7.5 6.4 - 8.3 g/dL [facility] Specimen Blood Performing Organization Address [facility] Phon e Number [facility] DIAGNOSTIC Unless otherwise noted, [address] all lab tests performed by: Division of Pathology and Laboratory Medicine [address] Alkaline Phosphatase (10/09/2020 10:57 AM CDT)Only the most recent of2 results within the time period is included. Pathologist Sig nature Alk Phos 119 40 - 129 U/L [facility] DIAGNOSTIC CE NTER Specimen Blood Performing Organization Address [facility] Phon e Number [facility] DIAGNOSTIC Unless otherwise noted, [address] all lab tests performed by: Division of Pathology and Laboratory Medicine [address] Calcium Level (10/09/2020 10:57 AM CDT)Only the most recent of2 resultswithin the time period is included. Pathologist Sig nature Calcium Lvl 10.0 8.4 - 10.2 mg/dL [facility] DIAGNOSTI C CENTER Specimen Blood Performing Organization Address [facility] Phon e Number [facility] DIAGNOSTIC Unless otherwise noted, [address] all lab tests performed by: Division of Pathology and Laboratory Medicine [address] Albumin Level (10/09/2020 10:57 AM CDT)Only the most recent of2 resultswithin the time period is included. Pathologist Sig nature Albumin Lvl 4.5 3.5 - 5.2 gm/dL [facility] Specimen Blood Performing Organization Address [facility] Phon e Number [facility] DIAGNOSTIC Unless otherwise noted, [address] all lab tests performed by: Division of Pathology and Laboratory Medicine [facility]-19 (SARS-CoV-2) PCR-Asymptomatic [facility] (10/09/2020 10:04 AM CDT)Only the most recent of2 resultswithin the time period is included. COVID19 (SARS Not Detected Not Detected [facility] CoV-2) Result Comment: [facility] This test is a qualitative r everse-transcriptase polymerase chain reaction (RT- PCR) developed for the [employer] system and intended for the detection of SARS CoV-2 RNA in human nasopharyngeal specimens from patients who meet COVID- 19 clinical and/or epidemiological crite maritza. This assay has been approved by the FDA for use only under Emergency Use Authorization (EUA) in laboratories that have been CLIA-certified to perform moderate-complexity and high-complexity tests. The performance characteristics of this assa y were verified by the Microbiology Laboratory at [facility], CLIA Accreditation #: [id number] and CAP Accreditation #: [id number]. Results must be interpreted within the context of all relevant clinical and laboratory findings and shou ld not form the sole basis for a diagnosis or treatment decision. "Presumptive Positive" resul ts are due to partial amplification of SARS-CoV-2 targets and indicates low amounts of virus present in the specimen at or near the limit of detection. Regardless, individuals with "Presumptive Positive" results should be managed per institutional gu idelines as individuals positive for SARS-CoV-2 virus, including use of appropriate infection control protocols. Internal controls are includ ed to assess for possible amplification inhibitors. If inhibition is detected, testing is repeated and if inhibition is confirmed the specimen is resulted as "Invalid". When an "Invalid" result occur, it is recommended to wait 3 days before submitting a new specimen for stacey ting if clinically indicated. COVID19 SARS NET MOBILE DEVELOPER Swab [facility] Source CANCER CENTER COVID19 SARS Pre-OR Procedure [facility] Indication CANCER CENTER Specimen Nasopharyngeal Swab Performing Organization Address City/State/ZIP Code Phon e Number [facility] CANCER Unless otherwise noted, [place] [address] CENTER all lab tests performed by: Division of Pathology and Laboratory Medicine [address] [place] [address] MRI Chest w wo Contrast - Ribs/Chest Wall (10/07/2020 7:31 AM CDT)Only the most recent of2 resultswithin the time period is included. Specimen Impressions [id number] - 10/07/2020 9:12 AM CDT Posttreatment changes in the right anter ior chest with no evidence of gross residual disease. Posttreatment changes in the regalado bcutaneous space extending down to and involving the pectoralis muscle mau manzanares on series 7 images 24-27. Narrative [id number] - 10/07/2020 9:12 AM CDT FULL RESULT: Examination: MRI CHEST W WO CONTRAST - R IBS/CHEST WALL, 10/07/2020 7:31 AM. Clinical History: Sarcoma Indication: right chest wall UPS s/p pre -referral rsxn, XRT; pre-op imaging for surgery planning anterior chest wall mass resected measuring 4 cm June 30, 2020 Comparison: MR chest July 20, 2020, CT ch est July 20, 2020 Technique: Multiplanar multisequence mag netic resonance imaging of the chest (focus ribs and chest wall) was performed without and with intravenous administration of contrast. Findings: Minimal soft tissue stranding in the anterior chest wall down to the pectoralis major muscle consistent prior intervention site series 7 images 24-27 decreased in enhancement and T2 signal com paring current study to postoperative im age July 20, 2020 with no evidence of nodular enhancement or significant T2 signal. No evidence of gross residual tumor. Mild degenerative changes in the right acr omioclavicular joint with small periarti cular fluid collection consistent with the synovial cyst series 5 image 7. Remaining chest is intact. No lymphadenopathy or evidence of new or progressive a mass lesions or new disease. Procedure Note Tae Wright MD - 10/07/2020 FULL RESULT: Examination: MRI CHEST W WO CONTRAST - R IBS/CHEST WALL, 10/07/2020 7:31 AM. Clinical History: Sarcoma Indication: right chest wall UPS s/p pre -referral rsxn, XRT; pre-op imaging for surgery planning anterior chest wall mass resected measuring 4 cm June 30, 2020 Comparison: MR chest July 20, 2020, CT ch est July 20, 2020 Technique: Multiplanar multisequence mag netic resonance imaging of the chest (focus ribs and chest wall) was performed without and with intravenous administration of contrast. Findings: Minimal soft tissue stranding in the anterior chest wall down to the pectoralis major muscle consistent prior intervention site series 7 images 24-27 decreased in enhancement and T2 signal comparing current study to postoperative image July 20 with no evidence of nodular enhancement or significant T2 signal. No evidence of gross residual tumor. Mild degenerative changes in the right acromioclavicular joint with small periarticular fluid collection consisten t with the synovial cyst series 5 image 7. Remaining chest is intact. No lymphadenopathy or evidence of new or progressive a mass lesions or new disease. IMPRESSION: Posttreatment changes in the right anter ior chest with no evidence of gross residual disease. Posttreatment changes in the subcutaneous space extending down to and involving the pectoralis muscle illustrated on series 7 images 24-27. Performing Organization Address City/State/ZIP Code Phon e Number [id number] CT Chest with Contrast (07/20/2020 1:39 PM CDT) Specimen Impressions [id number] - 07/20/2020 2:59 PM CDT 1. Bilateral indeterminate small pulmonary nodules may represent sequela from infectious/inflammatory process or metastatic disease. Short-term follow-up CT advised for further assessment. 2. Scattered groundglass opacities pre dominantly seen in the right upper lobe may represent infectious/inflammatory process. Attention on follow-up CT advised to reassess for resolution to exclude other etiologies. 3. Subcutaneous fat stranding in the r ight anterior chest wall adjacent to the pectoralis major muscle, likely representing posttreatment changes. Follow-up advised to reassess for stability to exclude residual/recurrent disease. Narrative [id number] - 07/20/2020 2:59 PM CDT FULL RESULT: Examination: CT Chest with IV contrast, 07/20/2020 1:39 PM. Clinical History: Sarcoma. 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 Comparison: None. Technique: Spiral CT of the chest is per formed using intravenous contrast. Findings: There is no mediastinal or hilar lymphad enopathy. The heart is normal in size and there is no pericardial or pleural effusion. There are several bilateral small nonspe cific pulmonary nodules measuring up to 5 mm. Also noted scattered groundglass opacities as seen for example on images 40 in the right upper lobe and 75 of series 302 in the lingula, most consistent wit h infectious/inflammatory processes although other etiologies cannot be excluded. Moderate size hiatal hernia. Limited everton ging through the upper abdomen shows normal adrenal glands. Subcutaneous fat stranding noted in the right anterior chest wall, adjacent to the pectoralis major muscle, as seen on images 30 of series 301. Procedure Note Palak Melgar C.B., MD - 07/20/2020 FULL RESULT: Examination: CT Chest with IV contrast, 07/20/2020 1:39 PM. Clinical History: Sarcoma. 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 Comparison: None. Technique: Spiral CT of the chest is per formed using intravenous contrast. Findings: There is no mediastinal or hilar lymphad enopathy. The heart is normal in size and there is no pericardial or pleural effusion. There are several bilateral small nonspe cific pulmonary nodules measuring up to 5 mm. Also noted scattered groundglass opacities as seen for example on images 40 in the right upper lobe and 75 of series 302 in the lingula, most consistent with infectious/inflamma tory processes although other etiologies cannot be excluded. Moderate size hiatal hernia. Limited everton ging through the upper abdomen shows normal adrenal glands. Subcutaneous fat stranding noted in the right anterior chest wall, adjacent to the pectoralis major muscle, as seen on images 30 of series 301. IMPRESSION: 1. Bilateral indeterminate small pulmon anastasia nodules may represent sequela from infectious/inflammatory process or metastatic disease. Short-term follow-up CT advised for further assessment. 2. Scattered groundglass opacities pred ominantly seen in the right upper lobe may represent infectious/inflammatory process. Attention on follow-up CT advised to reassess for resolution to exclude other etiologies. 3. Subcutaneous fat stranding in the ri ght anterior chest wall adjacent to the pectoralis major muscle, likely representing posttreatment changes. Follow-up advised to reassess for stability to exclude residual/recurrent disease. Performing Organization Address City/State/ZIP Code Phon e Number [id number] (ABNORMAL) POC Creatinine (07/20/2020 1:00 PM CDT) POC Crea 1.6 (H) 0.6 - 1.3 POC [facility] Comment: mg/dL Medications, especially hydr oxyurea or supplements, such as ascorbate, can interfere with test results causing a falsely and significantly higher result than expected. If a problem is suspected with a patient's result, a sample should be sent to the laboratory for confirmatory testing. Method description: The i-ST AT is an analyzer used for in vitro quantification of various analytes in whole blood. The device uses a single disposable cartridge which contains microfabricated sensors, a calibration solution, fluidics system, and a waste chamber. Each test cartridge contains chemically sensitive biosensors on a silicon chip that are configured to perform specific tests. The microfabricated sensors measure analyte concentration by an electrochemical assay. POC eGFR-AA 49 (L) >=60 POC [facility] Comment: mL/min/1.73 m2 Normal eGFR >= 60 mL/min/1.73 m2 The eGFR is calculated using the CKD-EPI equation. The eGFR declines with age. eGFR <60 mL/min/1.73 m2 is considered as "decreased" This equation should only be used for patients 18 and older. According to the National [facility] Kidney Disease Outcome Quality Initiative (KDOQI) classification and 2012 Kidney Disease Improving Global Outcomes (KDIGO) Clinical Practice Guideline, the stage of CKD should be categorized based on estimated GFR. Stage Description GFR mL/min/1.73 m2 1 Kidney damage with normal or high GFR >=90 2 Kidney damage with mild decrease in GFR 60-89 3a Mild to moderate decrease in GFR 45-59 3b Moderate to severe decrease in GFR 30-44 4 Severe decrease in GFR 15-29 5 Kidney failure <15 (or dialysis) POC eGFR-KALEIGH 42 (L) >=60 POC [facility] Comment: mL/min/1.73 m2 Normal eGFR >= 60 mL/min/1.73 m2 The eGFR is calculated using the CKD-EPI equation. The eGFR declines with age. eGFR <60 mL/min/1.73 m2 is considered as "decreased" This equation should only be used for patients 18 and older. According to the [facility]'s Kidney Disease Outcome Quality Initiative (KDOQI) classification and 2012 Kidney Disease Improving Global Outcomes (KDIGO) Clinical Practice Guideline, the stage of CKD should be categorized based on estimated GFR. Stage Description GFR mL/min/1.73 m2 1 Kidney damage with normal or high GFR >=90 2 Kidney damage with mild decrease in GFR 60-89 3a Mild to moderate decrease in GFR 45-59 3b Moderate to severe decrease in GFR 30-44 4 Severe decrease in GFR 15-29 5 Kidney failure <15 (or dialysis) POC Clean Dev 2 POC [facility], [address] [place] [address], [place] [address]; Logistic Manager: Poly Avilez MD Specimen Blood Performing Organization Address City/State/[facility] Phon e Number POC [facility] Confirm ABORh (07/20/2020 12:28 PM CDT) Pathologist [facility] ABORh Confirm. O NEG [facility] Specimen Blood Performing Organization Address [facility] Phon e Number [facility] Unless otherwise noted, [address] all lab tests performed by: Division of Pathology and Laboratory Medicine [address] Prealbumin (07/20/2020 12:28 PM CDT) Pathologist Sig rosemary Prealbumin 32.1 20.0 - 40.0 mg/dL [facility] C ENTER Specimen Blood Performing Organization Address [facility] Phon e Number [facility] Unless otherwise noted, [address] all lab tests performed by: Division of Pathology and Laboratory Medicine [address] (ABNORMAL) Hemoglobin A1c (07/20/2020 12:28 PM CDT) Pathologist Sig [facility] A1C 6.4 (H) 4.3 - 5.6 % [facility] Comment: CANCER CENTER HbA1c values >=6.5% are diagnostic of diabetes mellitu s. Diagnosis should be confirmed by repeat testing. Therapeutic Action suggested: >8.0% HbA1c; Goal of therapy: <7.0% HbA1c Specimen Blood Performing Organization Address [facility] Phon e Number [facility] Unless otherwise noted, [address] all lab tests performed by: Division of Pathology and Laboratory Medicine [facility] EKG, 12-Lead (Scheduled) (07/20/2020) Specimen Narrative This result has an attachment that is no t available. Performing Organization Address [facility] Phon e Number [facility] IECG CG MDM2/CEP12 FISH Final Report (06/30/2020 4:54 PM CDT) Specimen Narrative This result has an attachment that is no t available. Cytogenetics Specimen Collection -FFPE (06/30/2020 4:54 PM CDT) Pathologist Sig rosemary Jagdeepzeynep Ap Link [id number] [facility] Cytogenetics (Received) Yes [facility] Specimen FFPE Performing Organization Address [facility] Phon e Number [facility] Unless otherwise noted, [address] all lab tests performed by: Division of Pathology and Laboratory Medicine [address] [facility] Pathology Outside Interpretation (06/30/2020) Materials Accession#, Stained, Block, Unstained Collected Receiv ed [facility] Received A. [id number], 15 SS, 0 BLOCKS, 0 USS 06/30/20202020 Addendum 1 Additional material received on 08/13/2020, Outside 0 SS, 0 BLOCK, 20 USS, collected on 06/30/2020. [facility] Addendum electronically An immunostain for myogenin performed at [facility] is negative. 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 In combination, these results raise th signed by Hannah ge possibility of a dediffere ntiated liposarcoma. Close clinical correlation is advised. 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 PM TUMOR SIZE: 4.0 CM IN GREATEST DIMENSION (PER REPORT). MITOTIC RATE: 11/10 HPF. SOFT TISSUE MARGIN FOCALLY INVOLVED BY TUMOR. AW/DO 07/23/2020 1:46 PM Comment Submitted immunohistochemic al stains show that the tumor cells are weakly and focally positive for desmin and negative for cytokeratin AE1/AE3, CD34, SMActin, S100, myoD and p40. [facility] Additional material will be requested in an attempt to further classify the tumor. The results will be reported in an addendum. Inspector Golf Ball(s) DB [facility] Biomarker Tumor block: A2 [facility] Block(s) Disclaimer "Some tests reported here [facility] may have been developed and performance characteristics determined by [facility] Pathology and Laboratory Medicine. These tests have not been specifically cleared or approved by the U.S. Food and Drug Administration. If applicable, controls were reviewed and showed appropriate reactivity." Specimen Tissue Performing Organization Address City/State/ZIP Code Phon e Number [facility] [place] [address] [address] OSI MRI CHEST (06/15/2020 12:24 PM CDT) Specimen Narrative Systemgenerated, Documentation - 021 12:24 PM CDT Study acquired at another institution. For comparison only. No [facility] originated interpretation requested or a vailable. after 01/30/2020 Insurance Payer Benefit Plan Subscriber ID Effective Phone Address Typ e / Group Dates MEDICARE MEDICARE PART [id number] 2013-Pres [phone] [place] Medicare A AND B ent [employer] [address] [place] [phone] [employer] PPO [id number] 2014-Pres [address] PPO BLUE SHIELD POS ent [id number] [place] [address] Advance Directives Code Status Date Activated Date Inactivated Comments Full Code 10/12/2020 1:09 PM 10/13/2020 2:31 PM Care Teams Associate Engineer Relationship Specialty Start Date End Date Juan Blackmon, PCP - External Family Practice 07/10/20 Primary Care Provider [address] [place] [address] [address] [place] [address] Mushtaq Floyd PCP - External Follow General Surgery 07/10/20 MD Sung Up A [address] [place] [address] William Parker PCP - General Gastroenterology Surgery 07/14/20 MD Sung [address] [place] [address]
--- OUTSIDE RECORDS SUMMARY | 2021-01-29 12:09 | XMS REPORT | Continuity of Care Document ---
:1950 [facility] t Address [address] [place] [address] Care Team Providers Name Role Phone Lorri Primary Care Physician SYSTEM, NOT IN Attending Clinician Unavailable Tonny Bull MD Attending Clinician Doctor Unassigned, Name Attending Clinician Unavailable Waldo STREET Attending Clinician Mars Orlando MD Attending Clinician MARS ORLANDO Attending Clinician Unavailable LOWELL Attending Clinician Unavailable Lowell CHACON Attending Clinician Archana Rios Attending Clinician Serge CHACON Attending Clinician Angel IBARRA Attending Clinician Laith Rodriguez MA Attending Clinician Unavailable WALDO Attending Clinician Unavailable Matthew TURPIN Attending Clinician Dong Attending Clinician Unavailable Jessie CHACON Attending Clinician JESSIE Attending Clinician Unavailable Trey STREET Attending Clinician Juvenal Hernandez MD Attending Clinician Danita Shaikh MD Attending Clinician Tonny Vinson MD Attending Clinician Marina Gaston MA Attending Clinician Unavailable MARS ORLANDO Admitting Clinician Unavailable Payers Payer Name Policy Type Policy Effective Date Expiration Date Sour ce Number MEDICAREMEDICARE PART [id number] 2013 MD Amadou Swartz AND 00:00:00 [id number] 2012- [phone] [place] [address] [id number] BLUE CROSS BLUE [id number] 2014 Rony muller [employer] PPO 1 00:00:00 [id number] 14-[address], [place] [address] Problems Condition Condition Condition Status Onset Resolution Last Treating Co mments Source Name Details Category Date Date Treatment Clinician Date Chronic Chronic Disease Active kidney kidney 8- Anderso disease disease 00:00: n 00 Hearing Hearing Disease Active loss loss 6-03 Anderso 00:00: n 00 Sarcoma Sarcoma Disease Active 5-06 Anderso 00:00: n 00 No known No known Disease Unive rs active active ity of problems problems [facility] Allergies, Adverse Reactions, Alerts This patient has no known allergies or adverse reactions. Family History Family Member Diagnosis Comments Start Date Stop Date Source Natural brother Lung cancer Rony son Social History Social Habit Start Date Stop Date Quantity Comments Source History of Snuff User MD Tobar tobacco use History [facility] University o f Alcohol Frequency [facility] edical Branch History [facility] University o f Alcohol Std [facility] History [facility] University o f Alcohol Binge [place] [facility] Exposure to Not sure University of SARS-CoV-2 [facility] (event) Branch Alcohol intake 2020-10-14 2020-10-14 Current drinker MD Geraldine sandoval 00:00:00 00:00:00 of alcohol (finding) Tobacco use and 2020-07-20 2020-07-20 User of smokeless MD Tobar exposure 00:00:00 00:00:00 tobacco Alcohol Comment 2017-10-31 2017-10-31 red wine q night Uni versity of 00:00:00 00:00:00 [facility] Sex Ass[birth year] At [birth year] Universit y of 00:00:00 00:00:00 [facility] Smoking Status Start Date Stop Date Source Never smoked tobacco MD Tobar Medications Ordered Filled Start Stop Current Ordering Indication Dosage Frequency Signature Comments Components Source Medication Medication Date Date Medication? Clinician (SIG) Name Name vitamin C 2020-03 Yes 1000mg Take 1,000 Univers with moraima 1-05 mg by ity of hips 1,000 11:11: mouth. [place] mg tablet 21 Medical Branch atorvastati 2020-03 Yes TAKE 1 Univ ers n 40 mg 0-30 TABLET BY ity of tablet 00:00: MOUTH AT [place] 00 BEDTIME Medical FOR HIGH Branch CHOLESTERO L BRILINTA 90 2020-03 Yes 90mg Take 90 mg Univers mg tablet 0-30 by mouth 2 ity of 00:00: (two) [place] 00 times Medical daily. Branch multivitami Yes 1{tbl} Take 1 MD n tab 8-18 tablet by Anderso tablet 10:13: mouth n 10 daily. ascorbic Yes 1000mg Take 1,000 M D acid, 8-18 mg by Anderso vitamin C, 10:13: mouth n (vitamin C) 10 daily. 1000 mg tablet cholecalcif Yes 400U Take 400 MD cecilia, 8-18 Units by Anderso vitamin D3, 10:13: mouth n (VITAMIN 10 daily. D3) 5,000 units tab tablet acetaminoph Yes Sarcoma 650mg Take 2 MD en 8-03 tablets Anderso (TYLENOL) 00:00: (650 mg) n 325 mg 00 by mouth tablet every 6 (six) hours as needed for mild pain. senna-docus Yes Sarcoma 2{tbl} Take 2 MD ate 8-03 tablets by Anderso (SENOKOT-S) 00:00: mouth 2 n 8.6 mg-50 00 (two) mg tablet times a day as needed for constipati on. Take while taking pain medication s. Hold for diarrhea/l oose stools. traMADol Yes Sarcoma 50mg Take 1 MD (ULTRAM) 50 8-03 tablet (50 An derso mg tablet 00:00: mg) by n 00 mouth every 6 (six) hours as needed for moderate pain or severe pain. Do not drive while taking. Hold if sedated. methocarbam No Sarcoma 500mg Take 1 MD ol 8-03 08-03 tablet Anderso (ROBAXIN) 00:00: 00:00 (500 mg) n 500 mg 00 :00 by mouth tablet every 8 (eight) hours as needed for muscle spasms. triamcinolo Yes Radiation Apply MD mann 6 dermatitis topically Wilfrido rso (KENALOG) 00:00: to n ointment 00 affected 0.1% area(s) 3 (three) times a day. No known No Univers medications 8- ity of 12:00: [address] Immunizations Ordered Filled Immunization Date Status Comments [facility] e Immunization Name Name SARS-COV-2 COVID-19 2020-05-16 Completed Unive rsity of MODERNA VACCINE 00:00:00 [facility] Moderna SARS-CoV-2 2020-05-16 Completed MD And erson Vaccination 00:00:00 SARS-COV-2 COVID-19 2020-05-16 Completed Unive rsity of MODERNA VACCINE 00:00:00 [facility] SARS-COV-2 COVID-19 2020-04-18 Completed Unive rsity of MODERNA VACCINE 00:00:00 [facility] Moderna SARS-CoV-2 2020-04-18 Completed MD And erson Vaccination 00:00:00 SARS-COV-2 COVID-19 2020-04-18 Completed Unive rsity of MODERNA VACCINE 00:00:00 [facility] Vital Signs Vital Name Observation Time Observation Value Comments Source Body height 2021-01-15 16:16:00 177.8 cm [facility] Body weight 2021-01-15 16:16:00 79.379 kg [facility] BMI 2021-01-15 16:16:00 25.11 kg/m2 [facility] Systolic blood 2020-10-28 13:39:18 130 mm[Hg] pressure Diastolic blood 2020-10-28 13:39:18 83 mm[Hg] MD Geraldine samuelsson pressure Heart rate 2020-10-28 13:39:18 70 /min MD Uribe son Body temperature 2020-10-28 13:39:18 36.72 Jeniffer MD Maxime saucedaon Respiratory rate 2020-10-28 13:39:18 16 /min MD A nderson Oxygen saturation in 2020-10-13 12:05:20 95 /min MD Tobar Arterial blood by Pulse oximetry Body weight 2020-10-13 10:16:00 79 kg MD Rony muller BMI 2020-10-13 10:16:00 26.48 kg/m2 MD Rony muller Body height 2020-10-12 23:50:00 172.7 cm MD Rony muller Procedures Procedure Date / Time Performing Clinician Source Performed CONSENT/REFUSAL FOR 2021-01-15 16:03:47 Doctor Unassigned, No Un [facility] DIAGNOSIS AND TREATMENT Name Medical Branch COMPLETE BLOOD COUNT W/ 2020-10-13 08:25:00 Juarez Yang MD DIFFERENTIAL Trev BASIC METABOLIC PANEL, 2020-10-13 08:25:00 Juarez Yang MD CALCIUM IONIZED Trev MAGNESIUM LEVEL 2020-10-13 08:25:00 Juarez Yang MD PHOSPHORUS LEVEL 2020-10-13 08:25:00 Juarez Yang MD Trev Results CBC 2020-10-13 08:25:00 Enmanuel Orlando MD MANUAL DIFFERENTIAL 2020-10-13 08:25:00 Enmanuel Orlando MD GLUCOSE LEVEL 2020-10-13 08:25:00 Enmanuel Orlando MD BLOOD UREA NITROGEN 2020-10-13 08:25:00 Enmanuel Orlando MD ELECTROLYTE PANEL 2020-10-13 08:25:00 Enmanuel Orlando SERUM CREATININE 2020-10-13 08:25:00 Enmanuel Orlando MD .GLOMERULAR FILTRATION 2020-10-13 08:25:00 Enmanuel Orlando CALCIUM IONIZED, VENOUS 2020-10-13 08:25:00 Enmanuel Orlando MD PATHOLOGY SURGICAL 2020-10-12 12:43:00 Enmanuel Orlando MD INTERPRETATION Mars EXCISION OF TUMOR OF SOFT 2020-10-12 11:24:00 Osvaldo Orlando MD TISSUE OF NECK/ANTERIOR Mars THORAX COMPLEX REPAIR OF TRUNK 2020-10-12 11:24:00 Bruno Etienne ROUTINE VENIPUNCTURE- 2020-10-09 17:17:00 Lisa Haas MD [facility] MANUAL DIFFERENTIAL 2020-10-09 17:17:00 Lisa Haas MD PROTHROMBIN TIME 2020-10-09 15:57:00 Lisa Haas MD Rony son APTT 2020-10-09 15:57:00 Lisa Haas MD Gonzalo on COMPREHENSIVE METABOLIC 2020-10-09 15:57:00 Lisa Haas PANEL TYPE AND SCREEN 2020-10-09 15:57:00 Lisa Haas MD on MAGNESIUM LEVEL 2020-10-09 15:57:00 Lisa Haas MD Gonzalo on PHOSPHORUS LEVEL 2020-10-09 15:57:00 Lisa Haas MD Rony son GLUCOSE LEVEL 2020-10-09 15:57:00 Lisa Haas MD Gonzalo on BLOOD UREA NITROGEN 2020-10-09 15:57:00 Lisa Haas MD ELECTROLYTE PANEL 2020-10-09 15:57:00 Lisa Haas MD Wilfrido rson SERUM CREATININE 2020-10-09 15:57:00 Lisa Haas MD Rony son .GLOMERULAR FILTRATION 2020-10-09 15:57:00 Lisa Haas MD RATE CALCIUM LEVEL TOTAL 2020-10-09 15:57:00 Lisa Haas MD ALBUMIN LEVEL 2020-10-09 15:57:00 Lisa Haas MD Gonzalo on ALKALINE PHOSPHATASE 2020-10-09 15:57:00 Lisa Haas MD nderson ALANINE AMINOTRANSFERASE 2020-10-09 15:57:00 Lisa Haas MD ASPARTATE AMINOTRANSFERASE 2020-10-09 15:57:00 Ye Haas MD TOTAL PROTEIN 2020-10-09 15:57:00 Lisa Haas MD Gonzalo on FRACTIONATED BILIRUBIN 2020-10-09 15:57:00 Lisa Haas MD ABORH 2020-10-09 15:57:00 Lisa Haas MD Gonzalo on ANTIBODY SCREEN 2020-10-09 15:57:00 Lisa Haas MD Gonzalo on CLOT EXPIRATION DATE 2020-10-09 15:57:00 Lisa Haas MD nderson TMP INTERPRETATION 2020-10-09 15:57:00 Lisa Haas MD And erson ANTIBODY SCREEN NEGATIVE COVID-19 (SARS-COV-2) 2020-10-09 15:04:00 Enmanuel Orlando MD PCR-ASYMPTOMATIC MC Mars MRI CHEST W WO CONTRAST - 2020-10-07 12:31:59 Lisa Haas MD RIBS/CHEST WALL MRI CHEST W WO CONTRAST - 2020-07-21 01:27:00 Lisa Haas MD RIBS/CHEST WALL CT CHEST W CONTRAST 2020-07-20 18:39:49 Lisa Haas MD derson POC CREATININE 2020-07-20 18:00:00 Enmanuel Orlando MD Rony son Mars COMPREHENSIVE METABOLIC 2020-07-20 17:28:00 Lisa Haas PANEL APTT 2020-07-20 17:28:00 Lisa Haas MD Gonzalo on PROTHROMBIN TIME 2020-07-20 17:28:00 Lisa Haas MD Rony son TYPE AND SCREEN 2020-07-20 17:28:00 Lisa Haas MD Gonzalo on MAGNESIUM LEVEL 2020-07-20 17:28:00 Lisa Haas MD Gonzalo on PHOSPHORUS LEVEL 2020-07-20 17:28:00 Lisa Haas MD Rony son PREALBUMIN 2020-07-20 17:28:00 Lisa Haas MD Gonzalo on COMPLETE BLOOD COUNT W/ 2020-07-20 17:28:00 Lisa Haas DIFFERENTIAL HEMOGLOBIN A1C 2020-07-20 17:28:00 Lisa Haas MD Gonzalo on CONFIRM ABORH TYPE 2020-07-20 17:28:00 Lsia Haas MD And erson GLUCOSE LEVEL 2020-07-20 17:28:00 Lisa Haas MD Gonzalo on BLOOD UREA NITROGEN 2020-07-20 17:28:00 Lisa aHas MD ELECTROLYTE PANEL 2020-07-20 17:28:00 Lisa Haas MD Wilfrido rson SERUM CREATININE 2020-07-20 17:28:00 Lisa Haas MD Rony son .GLOMERULAR FILTRATION 2020-07-20 17:28:00 Lisa Haas MD RATE CALCIUM LEVEL TOTAL 2020-07-20 17:28:00 Lisa Haas MD ALBUMIN LEVEL 2020-07-20 17:28:00 Lisa Haas MD Gonzalo on ALKALINE PHOSPHATASE 2020-07-20 17:28:00 Lisa Haas MD nderson ALANINE AMINOTRANSFERASE 2020-07-20 17:28:00 Lisa Haas MD ASPARTATE AMINOTRANSFERASE 2020-07-20 17:28:00 Ye Haas MD TOTAL PROTEIN 2020-07-20 17:28:00 Lisa Haas MD Gonzalo on FRACTIONATED BILIRUBIN 2020-07-20 17:28:00 Lisa Haas MD Results CBC 2020-07-20 17:28:00 Lisa Haas MD Gonzalo on MANUAL DIFFERENTIAL 2020-07-20 17:28:00 Lisa Haas MD derson ABORH 2020-07-20 17:28:00 Lisa Haas MD Gonzalo on ANTIBODY SCREEN 2020-07-20 17:28:00 Lisa Haas MD Gonzalo on CLOT EXPIRATION DATE 2020-07-20 17:28:00 Lisa Haas MD nderson TMP INTERPRETATION 2020-07-20 17:28:00 Lisa Haas MD And erson ANTIBODY SCREEN NEGATIVE EKG, 12-LEAD (SCHEDULED) 2020-07-20 00:00:00 Lisa Haas MD COVID-19 (SARS-COV-2) 2020-07-18 21:09:00 Rosanna Andrew MD PCR-ASYMPTOMATIC HP CYTOGENETICS BLOOD 2020-06-30 21:54:00 Hannah Manzanares MD COLLECTION HC FISH ANALYSIS REV CG 2020-06-30 21:54:00 Hannah Manzanares MD PATHOLOGY OUTSIDE 2020-06-30 00:00:00 Yaneth Vinson MD INTERPRETATION OSI MRI CHEST 2020-06-15 17:24:29 Enmanuel Orlando MD Rony renzo Almaraz Plan of Care Planned Activity Planned Date Details Comments Source Future Scheduled Test 2020-06-13 00:00:00 COVID-19 Vaccination (3 MD Amadou - Moderna risk 4-dose series) [code = COVID-19 Vaccination (3 - Moderna risk 4-dose series)] Encounters Start End Encounter Admission Attending Care Care Encounter Source Date/Time Date/Time Type Type Clinicians Facility Department ID 2020-10-14 Outpatient SYSTEM, MARILY CALIXTO [id number] 10:23:11 PROVIDER Gonzalo castillo 2020-07-14 Outpatient SYSTEM, MARILY CALIXTO [id number] 10:28:24 PROVIDER Gonzalo castillo 2021-01-15 2021-01-15 Office MADDY Bull [id number] Univers 11:06:46 11:51:17 Visit [facility] [id number] it y of [place] [id number] Vishal as NASRIN?BLEA [id number] [address] MEDICAL OFFICE BUILDING 2021-01-15 2021-01-15 Orders Doctor YAEL [id number] Univers 00:00:00 00:00:00 Only Unassigned, DUNIA [id number] ity of [place] [facility] [id number] Vishal as [id number] [address] 2020-10-28 2020-10-28 Outpatient EL MARILY ORLANDO MDA [id number] 10:06:43 10:33:21 ENMANUEL castillo 2020-10-28 2020-10-28 Outpatient MONSTER ETIENNE MDA MDA [id number] 08:32:40 09:56:36 BRUNO castillo 2020-10-12 2020-10-13 Outpatient MONSTER ORLANDO MDA Teri Sarcoma [id number] 04:51:00 12:31:00 ENMANUEL castillo 2020-10-09 2020-10-09 Outpatient MONSTER HAAS MDA MDA [id number] 10:15:00 23:59:00 LISA Sánchez o n 2020-10-09 2020-10-09 Outpatient EL WALDO, MDA MDA [id number] 10:57:47 12:40:13 LISA Sánchez o n 2020-10-09 2020-10-09 Outpatient EL WALDO, MDA MDA [id number] 09:54:46 10:08:05 LISA short n 2020-10-07 2020-10-07 Outpatient EL SCALLY, MDA MDA [id number] 13:30:41 14:50:07 ENMANUEL graves n 2020-10-07 2020-10-07 Outpatient EL MERICLI, MDA MDA [id number] 10:30:19 11:41:56 BRUNO castillo 2020-10-07 2020-10-07 Outpatient EL WALDO, MDA MDA [id number] 05:52:38 05:52:38 LISA castillo 2020-09-07 2020-09-07 Outpatient EL SCALLY, MDA MDA [id number] 10:35:41 23:59:00 ENMANUEL samuelsso anna 2020-09-04 2020-09-04 Outpatient EL SCALLY, MDA MDA [id number] 10:24:09 23:59:00 ENMANUEL samuelsso anna 2020-09-03 2020-09-03 Outpatient EL SCALLY, MDA MDA [id number] 10:39:27 23:59:00 ENMANUEL samuelsso anna 2020-09-02 2020-09-02 Outpatient EL SCALLY, MDA MDA [id number] 09:26:56 23:59:00 ENMANUEL samuelsso anna 2020-09-02 2020-09-02 Outpatient EL GUADAGNOLO, MDA MDA [id number] 08:53:23 09:25:00 IRIS castillo 2020-09-01 2020-09-01 Outpatient EL SCALLY, MDA MDA [id number] 10:28:49 23:59:00 ENMANUEL samuelsso anna 2020-08-31 2020-08-31 Outpatient EL SCALLY, MDA MDA [id number] 11:05:00 23:59:00 ENMANUEL castillo Results Test Description Test Time Test Comments Results Result Comments Source Pathology Surgical Interpretation 2020-10-16 15:12:28 Test Item Value Reference Range Interpretation Comme nts Submitted [id number]FzIeFjJyqzzCRtSQkrckDwPXccl5JmI2LoHfAyABplnmDzOCUn KwultzdkZVTwQVQ0loTmBAWmBIzbUUPtQObzVr0crCLisTaxBeXvRXUcv2jpowAFltdsqVb2l9epVKAy EtU6mXZqBPnkG0ywxmVhgOInARQtNPd4nY55LMSctT2ycYBbBQytccEyAvQ5F Clinical FcmAXJhAzR4TLLjhREtXBBjY2aaTWTgJUzoNKOcUYaqxXErNMY3nQzpd3M4hKGujZKyxMctJeUiLcWfR gSDp9RbWXg9dTetT9CyBSHoRpY7wNYkODMhMEykEFSdVDUnavI1aR51LFulbdN4tNZpc1Kia54gm551b V3zcPZhGOL1DCRnXDVtyTWqLODtSAQ0RNOihORnO0bpKCKvST7gjfutQEhoUI History weCPCgmWM2QOOcrBClI5CuYIWtUWoxAKTkgdw9WwNvRs4ukNWioCsmWGlen4gtc9jcvLUkPxs7OWUyYg KcFrdnTJnin8Mpt1yaKKVywh8kIIX8gFOxxLsug3T5qRJrLZKmgBAnhlAuRGRkToJ7ABpeYL5fvw96MS TySWK1vp0mcMOlzNzmmbKjoUJgCPbpI1HtUDDgl382VMJdJ4WjFSUxh7T9lbV (test code aYtCnZWZiqBJ8ojE4BPPxASr9bHYownQ4nnHknGOeB2meoG7lPUEaIX3aiaeun2kzSYbrSNwnACPbpQU 3vvE9WGYbvMMcA2FyiH8xBCGpKQdsMVPprbu6YbJyDs4zqEMhaHdyFCtnArlrQSypCIRghgWpvrZprIl vVPVzMZBxMVuzWFTiASpnVUEmKPYoLkTbrEpbvYdtfW8xKiVeHwXvKNlyHN7w = 68933) DZElB5owiRPgOMVxFCTvJ5rgKhQehP8qcVmiRIycmcGyLQSmaoYsqEReI7V0RC90OVcopFJggvxjGPai rkVkIGwbzcqpSOVwDLptS1zpBoUmDJBtdObvAHksw2FjMYVeKWRcEjMmjZRjrW3= Diagnosis t3vinOIfRAMaxBG7KHCxTGYhx4yro2QdzJTjyWXnBChciQGgmlPpfk88tJV5mD27AC0gLOAvAxS5TFRh bnF7Dbz9FPDwSFGzsFTtJ363p3flu2ctakSqaDV9OMIbORLwB0GeKZ3pKVXdfEUkR01njKXfFMZ5NUPn RCOymBSxFNZmDCV6ZRJrzITiO1vgJPTpLN0fhlrkXLimZYamGVGyuLE4DTSwi (test code PFoW6WzPHMoWCawKAPkmrt0JeIsGe7fzVIrnUaiWYurKCLwSOJrLNiyTKJgRfEfL4IqUOJ3THIniH4tN F4sCENzIaOiuTctg0DpBLXudOesxTSebDWgoAI3QOatAHEohNLdb1aacrocyUBuNUrrNqKcQSaoamvmZ GhiBlSxR1zoolRfhhGjv1ZtC9M0wKZmz6l6tXGeK9AhISFfSFBxsyecrgQpbv = 34) 5dNHZ8jhVsHITgmJPyQ3iwtqvwjq4cGHFpqaVQEPJgpY5fPKwmtvKqHiSqxuFgmpJucPD4IFZfRT6wF7 N2iREbVTJmwkG4jV8tne6bHfBtC1OjnxPoY7vwhsoigmXgmSApcnJpzK0vICVtiPO1lSTnqRNvMHRfTK 8yBNRpocgexGKrhGzcUFmpZIBiE2QqXOD0UFFehH9aUY4fXCNgHnRmgHpoz3Z oCLBnsBszrQXupMYqdYO1KUvyKY5hJTuulWPxWHHboX0tQYT5V5cznY4hDepcCPAtbAj4GvVuuOowOvT jLTInBJFZe2btJBGaKAFcnHHcaWTuzzxzxzVzCMUwioWeCv7rPYJ7pG5sNWRjbnhfIRKdRSAeon1= Gross n3nxiPQxTYJcxNKOKVWvV4bytiEqWECdlOPjY9ZywvlwDLckOS5zJH2dtVzxxICkrRNjID0EYAWgPnUg NIAdqRZuplRyHoUpITHzoWPrpRZ5BKBiJR4cdpghHLozNOowXQEytcO8ZKYmrKBsQ1NvEOXpXG0pfjyo QPF0NGjlhP1fdoJJHdwmMe1ahIZkeBqkVeEzCtZoRLMeLDMvXZOezEepTZGvW Descriptio Zs2iP9PGleaX00vg3K9Omw0VAIuSFThI7BjQM2pYTEdvERoK07NVcftBWW7WXYAUlojJVJrQC9Uk3ufF YEpuBWbXGH9FSryxWTbLCQcEXMoAHj2PCFdWVldwCBxME1zzQycDdsdvDsfs7FxrJBrTVacMIKdREOxT MmoUUHhFV9VPxOpSBKdSOXvBjDgDMx6JJh4ST2PQmMuGKNkEDg4JrO8TUJmOL n (test f4MJlmMR2MBVc3XCQmUDE7DDC2MPC0YrHaOODhWbTeAQVvNGLwLItuIVmcaiDeJHQqASReAUsgEpvdGG zaZ03hpSrzyY0qBorhmqOxZZV4FAHdtgPFWcsvfGUdbedsoFyzLpWjwOGrPjAwSMccpPOneWGgCQdnht VafusmVAEQUepofJEzzFpsEXFbEPmrymKjFMRxQVZ3SUjhyKcaLDKmZ9q6GVX code = rfPwksWSmqWPnoAQ5MJaxECE9L7fyjU5nQZVffZ0jgWVjcQc9O5tbb0MfTPNcg4UoHNgnfvger7EeyRW vZLbaqMKrHWckZXWwzGJrAURuiYx2G2y4CKTkZQCyB7EfTCvcXjYnCSfhDAC5VJOoGUFooHS0XD6bZjP rl69uf1wyvzRllOmjaIIvDQRpCMKmjEOvUQFiJF1nXRyaxWXpTYC8blOtJUQi 7027795789 iCIlSQ4mCPFvSqOyeUT8hVW9JLozCFWuy0zwnrZ3FMKuy1j5dDPyaY4gzPCfmKy1I7ciASIza4ZmKPGy z5XcSCuupzudf4CaiZZeUAdbeNHmBLtnMS8oJTGmyTWnCKJutGs7S4gpLCAexW4xaUegOACqaCecDTXT pKKze5nmfhQicCOdVHDqEXVrIYNiKEbmTWCzPT37GIEvKYadTKxpsod9zFHmc ) [file] [id number] Disclaimer e5tryXQvATPvuBCnFsWoYFSqJDXwc3siDWSpxAAdWvZnUcQbTiGfOdgnyDIvIDAtHaOlr9npc687bWEg c9pfMEPyUtQ6vGSsODAouHVfN481KHYtXZifz2hyb2DmCNSinPWyp8Q5VPVHlrsptZp7kCjsG62po5K7 LatnR9euKZChUYAbB0DwBJ3yIFDlLse7OFE3UCD4AHQnCBPeL7AhNA7cPVFws (test code NToDYi8j8lsqVpvPEKwKZL1o7qmQMzlrpDpXD6vqj1ewId8q9kmnnUkQCNgNFYhxYAZXXEdA4PfbVdbJ d0rsQr9oXgtIcjgNZI6Otm0LP4rkc58utl0xZkdTUJwkiljUrT9BDyzSSGqmtbuSSl5KQpbJXCyqCP0Z FYfkAFtX8QtOIClIS5vhyu9ZHY9NTwvLWAaIdZ3JZLvvVHwMCIvgYsxRNhlm6 = 9844) 13KFW8JkZeHV7uX4Gqj3S3mA9sqSQqIENurZZzRwMnWGSkxb1dmSJbITiil2UhAEP3nhN5uQEbaTJpKF WnOY37Iqybo0YdPyztDQC4LEJchlIjb9Aqf4ubYtKbchEhU0vsU4LsSTYhVBNrZCBxFcZwzeCjl2Koz8 FnbWLytHu1p6sjGIEzXNHpzPfrh2ppRZB3RPRlQ9N1tQVjl8nzWOhzMBGkoXZ 5lxF8PPPxiKYmR1DjkB7vWXOeJY2wtpo5w1wdTBM3EGjoFGKkSuB0rwW2IPDseTGqQKEqtAihASryj34 2LSH1ObGiTDEqv3CpU4LouVkjD89vqIjjN62oKDJvbYlorX0weWqwjL0qDyLaMoVdUCbhkGyebJQifgr zWIrqhyI5ICrvcwdwIJBdVFaeA6vzXyPkHYSqaCtxLRrhc7XpDXMhABObYvcc xkG9WLSCw08zFONgz5OoUDJcnU9twIXeTDbejcWiwZB9XJptqtVfAeSmwsWbXRItkX6gNJAhLG4gUVOe piSuah0yigOaPHMaAJOoF3EnnrdlyQivqyHvIYQjpn2hiwQuGUR9UEWVIR5UEJMuMLGhu58aBTUxeEjw mM1hbVZelxQpCWAbl1UyhM8esHKYGJQeM5ztHB3pDXvpa8YyxXAgqPEtqMN7W TYap9DjHtAatiCalTLahQMeA0JlaJmeY6woKTAeQTYpxhSxqMSpc8HlZESnySA9cHTqJU1QYlTGw41zH NNqPSXTcfXqXROtiKjvkZY4drC3mH6jOvQRSwRkvAIqjDDgImsaGDKui047zx1ggrS0KKIzUWEqlidik 1FuBOOvPIRewF28CRTlXSNuxw4rkzyxrPZuxdOwV5Fwavz8qY4hXPZvYKpxXQ JfCTMuAeHnkLBsLuJdMdXcuQivnRzkGVbnCcEbUNJoVMtpX1fyGxXy ZnMyMlxwYXJ9 MD TobarPhosphorus [id number] 09:21:45 Test Item Value Reference Range Interpretation Comments Phosphorus (test code = 6817) 3.0 mg/dL 2.5-4.5 MD TobarElectrolyte [id number] 09:21:44 Test Item Value Reference Range Interpretation Comments Sodium Lvl (test code = 138 See_Comment [Au tomated message] 6730) The system [employer] generated this result transmitted ref erence range: 136 - 14 5 mEq/L. The refe rence range was not u sed to interpret this result as normal/abnor mal. Potassium Lvl (test code 4.4 See_Comment [A utomated message] = 8369) The system [employer] generated this result transmitted ref erence range: 3.5 - 5. 1 mEq/L. The refe rence range was not u sed to interpret this result as normal/abnor mal. Chloride (test code = 105 See_Comment [Auto mated message] 2867) The system [employer] generated this result transmitted ref erence range: 98 - 107 mEq/L. The refe rence range was not u sed to interpret this result as normal/abnor mal. CO2 (test code = 5227) 21 See_Comment L [Aut omated message] The system [employer] generated this result transmitted ref erence range: 22 - 29 mEq/L. The reference r ashley was not used to interpret this result as normal/abnor mal. Anion Gap (test code = 12 See_Comment [Aut omated message] 0198) The system [employer] generated this result transmitted ref erence range: 4 - 14 m Eq/L. The reference r ashley was not used to interpret this result as normal/abnor mal. Lab Interpretation (test Abnormal code = 35197-2) MD TobarGlucose [id number] 09:21:43 Test Item Value Reference Range Interpretation Comments Glucose Level (test code 115 mg/dL 70-99 H Eff ective 10/07/15, = 5699) the glucose reference inter vals have been updat ed based on [place] Diabetes [employer] ation guidelines (Standards of Medical Care in Diabetes 2016. Diabetes Care 2 016; 39: S13-S22).Fa sting blood glucose:Normal: 70-99 mg/dLImpa ired fasting glucose (increased risk for diabetes or pre-diabetes): 100-125 mg/dLDiabetes mellitus: >/=1 26 mg/dL Random bl ood glucose:Normal: 70-199 mg/dLNot e: Random glucose >100 mg/dL is associ ated with increased risk for diabetes Lab Interpretation (test Abnormal code = 36482-8) MD TobarGlomerular Filtration [id number] 09:21:39 Test Item Value Reference Range Interpretation Comments eGFR-AA (test code = 58 See_Comment L Normal eGFR: >= 60 8062) mL/min/1.73 m2N ote: The eGFR is festus culated using the CKD-E PI equation. The e GFR declines with a ge. eGFR <60 mL/min /1.73 m2 is considere d as "decreased". Th is equation should only be used for pat ients 18 and older. According to th e [employer]'s dney Disease Outcome Quality Initiat chance (KDOQI) classif ication and 2012 Kidney Disease Improvi ng Global Outcomes (KDIGO) Clinica l Practice Guidel ine, the stage of CK D should be categ orized based on estima glenna GFR. Stage Desc ription GFR mL/mi n/1.73 m21 Normal or h igh GFR >=902 Mildly decreased GFR 60-893a M ildly to moderately decreased GFR 45-593b Moderat jovani to severely decrea sed GFR 30-444 Daina rely decreased GFR 15-295 Kidney f ailure <15 [Auto mated message] The sy stem which generated this result transmit glenna reference range : >=60 mL/min/1.73 sq. m. The reference range was not used to int erpret this result as normal/abnormal . eGFR-KALEIGH (test code = 50 See_Comment L Normal eGFR: >= 60 8063) mL/min/1.73 m2N ote: The eGFR is festus culated using the CKD-E PI equation. The e GFR declines with a ge. eGFR <60 mL/min /1.73 m2 is considere d as "decreased". Th is equation should only be used for pat ients 18 and older. According to th e [employer]'s dney Disease Outcome Quality Initiat chance (KDOQI) classif ication and 2012 Kidney Disease Improvi ng Global Outcomes (KDIGO) Clinica l Practice Guidel ine, the stage of CK D should be categ orized based on estima glenna GFR. Stage Desc ription GFR mL/mi n/1.73 m21 Normal or h igh GFR >=902 Mildly decreased GFR 60-893a M ildly to moderately decreased GFR 45-593b Moderat jovani to severely decrea sed GFR 30-444 Daina rely decreased GFR 15-295 Kidney f ailure <15 [Auto mated message] The sy stem which generated this result transmit glenna reference range : >=60 mL/min/1.73 sq. m. The reference range was not used to int erpret this result as normal/abnormal . Lab Interpretation Abnormal (test code = 20998-1) MD TobarMagnesium [id number] 09:21:38 Test Item Value Reference Range Interpretation Comments Magnesium (test code = 6359) 2.3 mg/dL 1.6-2.6 MD Tobar.Serum [id number] 09:21:37 Test Item Value Reference Range Interpretation Comments Creatinine (test code = 5399) 1.40 mg/dL 0.67-1.17 H Lab Interpretation (test code = Abnormal 82110-9) MD [id number] 09:21:36 Test Item Value Reference Range Interpretation Comments BUN (test code = 5055) 22 mg/dL 6-23 MD TobarRfursnxlDoxhbndfbapw7603-39-92 09:04:51 Test Item Value Reference Range Interpretation Comments Neutrophil % (test code = 83.2 % 42.0-66.0 H 90914-5) Lymphocyte % (test code = 9.2 % 24.0-44.0 L 737-7) Monocyte % (test code = 7.1 % 2.0-7.0 H 744-3) Eosinophil % (test code = 0.0 % 1.0-4.0 L 713-8) Basophil % (test code = 0.1 % 0.0-1.0 707-0) IGRE % (test code = 0.4 % 0.0-0.4 IGRE % c ount 29395-6) includes Metamyelocytes, Myelocytes, and Promyelocytes. Neutrophil Abs (test code 6.88 K/uL 1.70-7.30 = 753-4) Lymphocyte Abs (test code 0.76 K/uL 1.00-4.80 L = 732-8) Monocyte Abs (test code = 0.59 K/uL 0.08-0.70 743-5) Eosinophil Abs (test code 0.00 K/uL 0.04-0.40 L = 712-0) Basophil Abs (test code = 0.01 K/uL 0.00-0.10 705-4) IG Abs (test code = 0.03 K/uL 0.00-0.04 46098-2) Lab Interpretation (test Abnormal code = 67883-2) MD Tobar.[id number] 09:04:44 Test Item Value Reference Range Interpretation Comments WBC (test code = 8.3 K/uL 4.0-11.0 6690-2) RBC (test code = 789-8) 4.74 See_Comment [Au tomated message] The system [employer] generated this result transmitted ref erence range: 4.50 - 6 .00 M/uL. The refer ence range was not u sed to interpret this result as normal/abnor mal. Hgb (test code = 718-7) 13.6 See_Comment L [Au tomated message] The system [employer] generated this result transmitted ref erence range: 14.0 - 1 8.0 gm/dL. The refe rence range was not u sed to interpret this result as normal/abnor mal. Hct (test code = 40.7 % 40.0-54.0 4544-3) MPV (test code = 787-2) 10.3 fL 4.0-10.4 MCH (test code = 785-6) 28.7 pg 27.0-31.0 MCHC (test code = 33.4 See_Comment [Automate d message] 786-4) The system [employer] generated this result transmitted ref erence range: 31.0 - 3 6.0 gm/dL. The refe rence range was not u sed to interpret this result as normal/abnor mal. RDW-SD (test code = 43.4 fL 35.1-46.3 23683-5) RDW-CV (test code = 13.8 % 12.0-15.5 788-0) Platelet count (test 226 K/uL 140-440 code = 777-3) INRBC (test code = 0.0 % See_Comment The INRBC (instrument 5974) NRBC) value ref lects the enumeration of nucleated red b lood cells contained in a 200uL sampleof whole blood analyzed by the instrument. Thi s value maydiffer from the NRBC value repo rted in a manual differential,wh ich is based on a 100 cell differential. [Automated mess age] The system [employer] generated this result transmitted ref erence range: <=0.0. T reference range was not used to int erpret this result as normal/abnormal . Lab Interpretation Abnormal (test code = 68949-6) MD TobarCalcium Ionized, Xbmwmy0591-65-45 08:28:55 Test Item Value Reference Range Interpretation Comments V Ion Ca (test code = 26385-1) 1.17 mmol/L 1.15-1.29 MD TobarCOVID-19 (SARS-CoV-2) PCR-Asymptomatic [id number] 02:34:25 Test Item Value Reference Range Interpretation Comments COVID19 (SARS Not Detected Not Detected This test is a CoV-2) Result qualitative (test code = reverse-transcr iptase 82851-6) polymerase saima n reaction (RT-PC R) developed for [facility] Tl AURA 680 0 system and inte nded for the detecti on of SARS CoV-2 RNA in human nasophary ngeal specimens from patients who me et COVID-19 clinic al and/or epidemiological criteria. This assay has been approv ed by the FDA for use only under Emergency Use Authorization ( EUA) in laboratories that have been CLIA-certified to perform moderate-comple xity and high-comple xity tests. The performance characteristics of this assay were verified by the Microbiology Laboratory at [facility] [place], CLIA Accreditation # : [id number] and CAP Accreditation # : [id number]. Result s must be interpreted within the context of all relevant clinic al and laboratory find ings and should not form the sole basis for a diagnosis or treatment decis ion. "Presumptive Positive" resul ts are due to partial amplification o f SARS-CoV-2 targ ets and indicates l ow amounts of viru s present in the specimen at or near the limit of detection. Regardless, individuals wit h "Presumptive Positive" resul ts should be manag ed per institutional guidelines as individuals pos itive for SARS-CoV-2 virus, including use o f appropriate inf ection control protoco ls. Internal contro ls are included to ass ess for possible amplification inhibitors. If inhibition is detected, testi ng is repeated and if inhibition is confirmed the specimen is res ulted as "Invalid". W hen an "Invalid" resul t occur, it is recommended to wait 3 days before submitting a ne w specimen for te sting if clinically indicated. COVID19 SARS NATURAL G[employer] BASIS TRADER Swab Source (test code = 11243) COVID19 SARS Pre-OR Procedure Indication (test code = 02505) MD TobarTMP Interpretation Antibody Screen Smwyfbru7270-37-41 21:58:27 Test Item Value Reference Range Interpretation Comments TMP Auto Neg At the present ABSC Interp time, patient (test code = plasma shows no ____NUPUR 7535) evidence of RBC EUSEBIO,Dictat ed by: alloantibodies. NUPUR MCGILL IN,Dictated Date/Time: 09.12 16:58 PM CDT Transcribed Fidel e/Time: 10.09.2020 16:5 8 PM CDTElectronical ly Signed By: NUPUR MIRANDA on 10.09.2020 16:5 8 PM MD TobarAntibody Srfojp6147-69-02 17:51:24 Test Item Value Reference Range Interpretation Comments ABSC. (test code = 890-4) Negative ABSC MD TobarXcklskboMFUBv1566-35-96 17:51:23 Test Item Value Reference Range Interpretation Comments ABORh. (test code = 882-1) O NEG MD TobarClot Expiration Ajcd4554-83-84 17:51:20 Test Item Value Reference Range Interpretation Comments T & S Expiration (test code = 10/12/2020 5318) MD TobarPartial Thromboplastin Xwon9519-89-76 16:45:40 Test Item Value Reference Range Interpretation Comments aPTT (test 29.7 See_Comment [Automated [facility]] code = 6773) The system [employer] generated this result transmitted ref erence range: 24.7 - 3 6.8 second(s). The reference range was not used to int erpret this result as normal/abnormal . MANISHA (test code This lab cannot be = MANISHA) scheduled at the following locations due to collection/proccess ing restrictions: [facility] and [facility]. MD TobarProthrombin Time with [id number] 16:45:39 Test Item Value Reference Range Interpretation Comments PT (test code 12.7 See_Comment [Automated me ssage] = 6746) The system [employer] generated this result transmitted ref erence range: 11.5 - 1 3.9 second(s). The reference range was not used to int erpret this result as normal/abnormal . INR (test code 1.02 0.90-1.10 = 5973) MANISHA (test code This lab cannot be = MANISHA) scheduled at the following locations due to collection/proccess ing restrictions: [facility] and [facility]. MD TobarFractionated Lkllxgfai2665-72-56 16:38:14 Test Item Value Reference Range Interpretation Comments Bili Total (test 0.4 mg/dL See_Comment Indocyanine Green (ICG) code = 5096) may cause false ly elevated biliru bin results. Total and direct bilirubin must not be measured from s amples containing indo cyanine green. False el evation of total bilirubin can be seen in patient s with IgG concentrations above 28 g/L. [Automate d message] The system [employer] generated this result transmitted ref erence range: <=1.2. T he reference range was not used to interpr et this result as normal/abnormal . Bili Direct (test <0.2 See_Comment Indocyanin e Green (ICG) code = 5094) may cause false ly elevated biliru bin results. Total and direct bilirubin must not be measured from s amples containing indo cyanine green. [Automat ed message] The sy stem which generated this result transmitted ref erence range: <=0.3 mg /dL. The reference range was not used to interpr et this result as normal/abnormal . Bili Indirect (test See Note 0.0-0.9 Unable t o calculate code = 5095) Indirect Biliru bin result due to some par ameters are outside rep ortable range MD TobarTotal Gkejkkl5184-55-62 16:38:13 Test Item Value Reference Range Interpretation Comments Total Protein (test code = 7649) 7.5 g/dL 6.4-8.3 MD TobarCalcium Tvytl5966-73-15 16:38:10 Test Item Value Reference Range Interpretation Comments Calcium Lvl (test code = 5258) 10.0 mg/dL 8.4-10.2 MD TobarMlhwodpaDGR4120-70-20 16:38:08 Test Item Value Reference Range Interpretation Comments ALT (test code = 18 U/L See_Comment [Automated message] The 8685) system which ge nerated this result transmit glenna reference range : <=41. The reference range was not used to interpr et this result as sheng l/abnormal. MD TobarAlkaline Rbjapemuqjp8537-65-55 16:38:05 Test Item Value Reference Range Interpretation Comments Alk Phos (test code = 4768) 119 U/L 40-129 MD TobarAlbumin Uvhve0311-10-27 16:38:03 Test Item Value Reference Range Interpretation Comments Albumin Lvl (test code 4.5 See_Comment [Aut omated message] The = 4239) system which ge nerated this result tra nsmitted reference range : 3.5 - 5.2 gm/dL. The refe rence range was not used to interpret this result as normal/abnormal . MD TobarAspartate Voonacaeltezcuij3257-44-33 16:38:00 Test Item Value Reference Range Interpretation Comments AST (test code = 28 U/L See_Comment [Automated message] The 2373) system which ge nerated this result transmit glenna reference range : <=40. The reference range was not used to interpr et this result as sheng l/abnormal. MD TobarPathology Outside Ykcgillosyjwvu3380-95-42 17:39:08 Test Item Value Reference Range Interpretation Comments Materials Received (test e0vrlISlQJYffRJqFyFo code = 9973) KEJpCRBej0fzDKJwyNGk ZzEwMzNcZnRuYmpcdWMx ZHSwAdAsx2ieq220fNXt x4lnJLXvSnC6mMVsJREf xXFzG081MHUzQUkrw1hw t6HoFZKibHQdl2T7MCFH vpujaHg3xIrbZ73rw7T6 MwbrL7crXEDvITYqQ5Ti ZV2hBVDoQpe0NME4TOX6 MCDvDQWrY6FvSQ0wGUWv rEKjWQv6l5tieYveZMWo ZQO5e6htFSiqmnUsMK8d iw2zxWt3v8ymcpJrFVJk FMPcxLVIUQCeB5OnjKqe Oi1geDy3pBggXiroQSW3 Vxl0RS8euk69mnl8oCas GVKgrbbgAyK0WCewTFAq sidwCEa3NWfeWPXkuTdp MFxtYXJncjcyMFxtYXJn lBD3TUInxPFzH3FtTPNw LFxkYDEkznv7SrUlXf1l yFEelXwiTSdsh8fml5tw bYUtYnd7KHHgRhEnHhfp BAbyv0Ynu4svEKOmtv5u JYL6jZUmuNoxi0I8bAEi LDHjeNGiieDlTKKeph96 uXYppMDqiITvti0xxaTi tXCanOHoFGF5mEDutmOr RODfwVGhQTTvHD2qwDLd SCGdeL4itcigGKEvDmCh xbnnVSLolEndbpXcQt6b tEatFWU4PQetA4qjxQ1h PeR3TElqS6ippV0hJQx0 DPtxsUQ4EDRcwX4nAQ3x lszzw4whCvTrOP0kqcoq e9mdNoPyOD9geax0d2ew AHF8TDkuVGIxCuG6yyM6 NDBcaGVhZGVyeTcyMFxm c290OIS8LsTiXWZwo5Hi W3ActZlqY26xrLfjF48z LPMzbWbozW5lmMpmaK6a ZuMbDfYrVOj1rp32AMy2 yjqdfVivMUr2bfBgXTOq IYK1VNFitMOeZXEaM2e0 sqEoWLOnXEZ6TEPfdQPh WAPxQ5m2rpAeTLW6QTs2 cnBhZGRmdDNcdHJwYWRk YjBcdHJwYWRkZmIzXHRy bSKhdKVqxUAhcY4atOze IHRhoVHjmT9iQVQ9HLDn cmgzMjBcdHJoZHJcbHRy bo31RTHsbeUafTJmlWpn aCTnMXI9HCSdTZFlLNEd KVN1QQBrUdLwnjXrWBqf bGJyZHJiXGJyZHJzXGJy HEP3RRHkAbNcrwUkXOzg bGJyZHJsXGJyZHJzXGJy YBN1KAXiDjFmmpNhFGve bGJyZHJyXGJyZHJzXGJy OBM7OBRlNsJsdkOkEKgm bHBhZHQxMFxjbHBhZGZ0 K2yrqDFtITUhLOeohSRc HDIaN9fxaCQnJDzgOHZj cGFkZmwzXGNscGFkYjBc G2qvCIWyCzIjZ4ThqFn8 MDAwXGNsdmVydGFsdFxj dELtYMW8OQIfFJSnADZy JWA9CZEzBsAckpDzNOkv bGJyZHJiXGJyZHJzXGJy CQG5UKOwLfZqbwQmSXyd bGJyZHJsXGJyZHJzXGJy QHR7VJNnPhMiwvFnUBwz bGJyZHJyXGJyZHJzXGJy CYD1ILYiXsMhnaBeESwk bHBhZHQxMFxjbHBhZGZ0 X8wmtZKwPODpICmuoMJy OLVmI7dczZDwMTibINGz cGFkZmwzXGNscGFkYjBc A3sjNTOmUoFqV3HqvAa1 NjAwXGNsdmVydGFsdFxj fTKvFVU1ALAbGFBfEQNp GDC1MOMgAsYlguNoRJuc bGJyZHJiXGJyZHJzXGJy DAD7VZZeIcNooaXfESwg bGJyZHJsXGJyZHJzXGJy YMX3HHRxGyYolkMbPRwc bGJyZHJyXGJyZHJzXGJy REE9VFUnNeNnwvUmXRre bHBhZHQxMFxjbHBhZGZ0 K7pfuJIcVALnKPgfdZGc ELNbO5qvjEAsWQvmHYHf cGFkZmwzXGNscGFkYjBc M3cwHAPyFiKjI3GfsVo0 DkRaSWBmrmHcmA85Xtno g2PbTYSuVOY7TTcbAFfp bFxwbGFpblxmMVxmczIw XGuktgmfUPXxHNikH5tt NgShFSFjfUtqSNzge7Sb XGYxXGNmMlxmczIwXGIg ROPdSHGglA8dVopdH1Wq fF5zZWnoClohC3lzWVYz h1RlqV3bPNrscFPsxump MVxmczIwXGxhbmcxMDMz HAocV7luKmYlLLZsjSmt EFhjx7TuEQHjOCQiQzfj zbLtYBk1fuDuQUUfvNbv pSJgOXivwzAasSudj9Cb ioCnmFrhTGNkNWb2ppKv vlwtiJp9jLFgnCblPABp eFhjgZ2gDnJsLtGwGGlq bGFpblxmMVxmczIwXGxh kjzaGDRcGNdpT1ezWiXd UQVkiCgaMAion4VbCTGe PFYxJdptmlJbUTXeB55k bGVjdGVkXHBsYWluXGYx XGZzMjBcbGFuZzEwMzNc aGljaFxmMVxkYmNoXGYx NMcxQ3lcOcGnS9DkTUUh MhCuyZZdY0zxB3ObzJcy YXJkXGludGJsXHNzcGFy ENE6rCRtccOybTDxnDNh VIDqQMyuGHB9aBOizkae cJVmezkhXVxyigW8QCRy YWluXGYxXGZzMjBcbGFu ZzEwMzNcaGljaFxmMVxk DfQcNLXrKZilP0hrKdSl S6GvSDVgWnPvHiJWTEJw aXZlZFxwbGFpblxmMVxm czIwXGxhbmcxMDMzXGhp K4qgAeDeYQCtnLkfIVuq y8DeXHYgJFNcQpmuybAv OSs9uwWgVIArnWonoI09 Zvmxnt27GOEgt6jvDMJa Z5YbnVUpSAPmgWHqGHtb MDhcdHJwYWRkZmwzXHRy cGFkZHIxMDhcdHJwYWRk ZnIzXHRycGFkZHQwXHRy iIGaAKR0M5h8uqBnPCUs VMt2cjTwVOGiFgFqyRUi ZHR3OVt4FzzexfD0eTWl H7y8QrodbhEjKApjpJTc kp52IOHpbsNwlTRrnBnk jZCkHEK9HXToMFGcSLTd YXZ3LFPrOjGcnlCcVWra bGJyZHJiXGJyZHJzXGJy CVF8IQZdCmVdoeNyXOcf bGJyZHJsXGJyZHJzXGJy FMD6CNBtNaNunoGyEOgo bGJyZHJyXGJyZHJzXGJy TIM4EZInLqRpkjEbZGxa bHBhZHQxMFxjbHBhZGZ0 R4gpiAJcQJPxAPjxkISp YYYgM2nvvWBhEDamDZWn cGFkZmwzXGNscGFkYjBc O6eqLVIwBdMeH5MbvVl5 MDAwXGNsdmVydGFsdFxj sHNkGCA5BUPxANErTRAl QOY8ARVqBgEsfgVmVBfa bGJyZHJiXGJyZHJzXGJy NGK7YBFzUuIdtiYrDRzj bGJyZHJsXGJyZHJzXGJy LBI3RRNuYwSmgyRpYOkl bGJyZHJyXGJyZHJzXGJy KEH2LZKtAtBvmoJsSMed bHBhZHQxMFxjbHBhZGZ0 J5fbjATwUPUwQNyoaOWx ITOtK8hwkYLmVMftXCPt cGFkZmwzXGNscGFkYjBc M3cvDUPkRiFeF6DsxNy2 NjAwXGNsdmVydGFsdFxj jNJoHWO5MCJyZDFzXQLf ZCO0IJLgQkBlrzBnRYuw bGJyZHJiXGJyZHJzXGJy QAT2ZQAwRbUldhAkNTpc bGJyZHJsXGJyZHJzXGJy QPO8UIHtZwEjmwYrYKxj bGJyZHJyXGJyZHJzXGJy QLS2BOUbIkMmcwLrQOpb bHBhZHQxMFxjbHBhZGZ0 B2maeGDiQIOeKXrpwKIc OMTaY0kmjYCsFTvnTNRu cGFkZmwzXGNscGFkYjBc P8qaYQHnCcJfC4WfyZn7 XqOnKWTamuTtqB47Pxko e1TiJEQuKPI0ACsjQBxu bFxwbGFpblxmMFxmczI0 XHBsYWluXGYxXGZzMjBc bGFuZzEwMzNcaGljaFxm SJxsNyAlYUMgICqhI1yf OvUwJ7TvVJYhIxOaHP0x B6MjUuVoEHJ1CUAyPFT5 NCYIRJIyPFRMQ9YICmwi HESBE7BtxVfsxA2kCtVu XgVrSBwkDZ0wLEHrX6gt kUFmVKWdKXObI7isTdYj uK3ngRmlWMgxMhFlIsRf MFxsdHJjaFxjZWxsXHBh xjRexD93Fodmb3KaZRPm JYK6IKgaZCmxsGbllPXg nwfiRBffbmQ2IBTaUAfc XGYxXGZzMjBcbGFuZzEw MzNcaGljaFxmMVxkYmNo BAVdSTsnN6cdFsSrB1Gg NTAsRsOsDO1rPY3rLPXv XHBsYWluXGYxXGZzMjBc bGFuZzEwMzNcaGljaFxm FKokMiWzRDTxVKoyA4jn UiAkF5QuRARgEgDjjKKx Q0fdD4UkxJdnIZUsWNkk nRWyNNAscOZgMMO8gGAb unVisEmgrWizhU2wYvGq ZnMyNFxwbGFpblxmMVxm czIwXGxhbmcxMDMzXGhp D3slKhOaLWMeeWryUQic v3MkAJSgMLJrVuzzumLm IDUvMTMvMjAyMVxwbGFp blxmMVxmczIwXGxhbmcx DQOvJBmcI9cjRkTyUKLt bTopZVuzc5IcJTZaTOFw CyutadXfZGj3zuCtGJEy vZuhsJ38Sqikgf68TZJr dxVkp9MaVVLnPLM1QAuu MFxxbFxwbGFpblxmMFxm unP1CDFwFWjpPLIhAWNc MjBcbGFuZzEwMzNcaGlj aFxmMVxkYmNoXGYxXGxv G6dbZiYzRnQbFKswMCY0 Addendum 1 (test code = i3rcxTDcKBPhqRP5DQSb 37) DDFha5spd8EviULwpFIs PNfkwVJzfhTxlk71uYR4 cQ70WX5hXFJmUqG2GWTg nnC4Hfe9VLHtLFMtcVWg K676u6gyb2clfcNhxKR1 zIzmUEFnqsuvTbX4CRlq SDXenzbwODe0VVrjTVQm rNP5LVQflWLgP9SbFZXp II7xcjk6PBQ9PXjrLVIg KwW5GOAbvVWeMAHwzZuw MRdup037CCH8VeTgKFPf ruMouYpzqD8mOgStVEAL CAVcoNkxfkLdKI7rsERj dOBlYYCiZ9FjbuVrJX1f NKD4PtHnXiFoLjXrKX75 zCByFRRuVBAtRNGblG1h JtwlK0MsAkOwJIR3QYQs GSXuT3SyFSSqVvyJY7li PMGkYCLEIagaR04beOQs xIBrAD1eKAO9CgPlDtYj MjEuIFxwYXJccGFyIEFu YGxcsHFhe9B7MYdhNQQf hiTxqO5vJP5epsEoHPKw v1FeOGJgDLYwRZEJX5Xc aXMgbmVnYXRpdmUuIEZs pH0bFLSaLW7wICImxiIy xKG3JDd3GaYrXPb6RWAx k91faAIhEPOfzDQtluJd ISBfsK9uhHBwoaBwzuOl aHp9RNYyvwZcsMUDEY5u QCmvUKPlhJYjoUNaN9L1 xI2rXFgOXe5hVT3qAYBf MCkuIEluIGNvbWJpbmF0 yO3xIUO7yJSvUFUyIFJ3 bHRzIHJhaXNlIHRoZSBw x5DpbBXkiWl3iDIxEyQe LGBxZBbdGfMbEI66uOO6 LAJppEbcw0SabhAurSLs BXGbi7OxICOzmD7fN3Qs FUKxtjHliTR0zL2hEEqh IGFkdmlzZWQuXHBhclxw UPOoFQDngN3wN4IkKWFq TUZvXLOfv2WfYaDlSWjj RSwgMSBJSEMsIDEgRklT SFxwYXJ9 Diagnosis (test code = u0qsfKIvPOLkbHQ0UzCo 34) WFIjx1byd3MvdVFvqMNl MSvbrXRalgFcwr87aMK6 eU05WI5wZUDpYwE6EVEa dlD7Knr0BNCrLFIvgSOk V801g7xon8wjutWbdZG8 fVxwYXJkXHBsYWluXGZz MjAgRmlmdGVlbiBvdXRz zEHbEXPlhBQvpeFhS6Ny FoPdEBZ5GQVjJISlf3dd ssA1SBCaMVX8YYTwyfuk FRWjzBZoDXWlFKH4MXuk oGhtIWPyO0z7RRDyfFMf t4czgmCgQZQuMPAmVHC8 KTpccGFyXHBhclxsaTE0 JRGzmNkrWGL0WHKGAVeM X57HAeFuJ3CHBuZLOLSG RUxMIEFORCBFUElUSEVM WE9WBUXLEK9PEJWKZLkz Z43NQ4xLQFCHMZRFHWOM IFNBUkNPTUEgKFNFRSBD Q33OLA4USV1fzLAgUPwu NzIwXGZpNzIwXGxpbjcy NFYBKR3YWwMDCHmQSwB3 JvOeQ95zFH2nC7HQQXZQ D3FvVIwTBW9KDY9MAMpX TGUzZrMNL7CCBV1djHHs UH7DJB5HDYRyTeNEINhg MTEvMTAgSFBGLlxwYXIg B28YQICLXXBOPMUzLLUN I8yTTAGKM2PMRNrsBU5G Y9dSLWEeTujxRMBFP4On XHBhclxwYXJcbGkwXGZp MSnrfV8kNLQBG2ABQXKq qgD6UjXgUmObZrVpmUEm OMLyx7LeU6S0UQEmQSds q3cmCXGjIRaaf4YsWGxO MKAAWN1HTX0iuJX1KPmE I8PGA6fDjPseqTU2Cg2F lIU6hEkofPp9q5wdvHJu y4w7DKrtQFO0rPK0UXWy RA03SXLgQEwnz4crLHVg PPlia1HlWLxMVMQWYG9N BC2riBU3DHgAQ4TVNVs0 UmlieS2FT0pjxXh2GWm9 fXtcZmxkcnNsdCBcJzFj bV7yqPumuL3pLxTbPClx YXJ9 Comment (test code = f0odvWWkGJSpeND1BuOe 9889) GFUfd2szj7AttPCdbJFg UWbwoGBjyoAqwq56hED9 hH98VG6uGUOwZsE0BSUj yvO3Vco4WQCzHUSrlKYa O134q1pbc0kupvHeeXH9 fVxwYXJkXHBsYWluXGZz UxNnK6HqpGn2hMNxFTAk zE80aj9cqYS8q9AvTI2x R4KbJTW8ONexnhSuzC43 CSWjDTMyuOxzBKY6zY0m BRYxnIkaGKJzDZF0TIFc mIrnDK8iIZAfX2SpeMer nI8qwCGpgyFvRv3jYKDo r22bnmXsosQddoUsZMLr jtSmWn2aCWC4yG2uAPDc rXtiSUUNDG6FWBVuXRLN QrKoKYLLFPY4wV6hGYNi LOFvDH60m7AbVM2iDKM9 MS0cQVMjatgaEJWzDFOe uADyq89dvARiPVVerdpl yVS6eEkvWZHbOIFibNGc g5RtYZDxjzHdbhUrpCHx uGG8LJEdKTH5xtWdHTPt L3fig9UxQkulbOfmZXA4 xU0iMgXTxSEhttQdiJl9 esR5hIblLEOlPQLdbZ4a dGVkIGluIGFuIGFkZGVu ZHVtLlxwYXIgIFxwYXJ9 Study Manager(s) (test code m0ygdEJlATDjhBE0FjVm = 9841) UMSyw7paj6OpoVUdqSKm ODcyyZAmcnVsun75jRA5 hN62EH4tXRCrBcY6FXIs krY0Oxy1DCUyBTBtyELa C103g8zuw2edsoUleTM3 fVxwYXJkXHBsYWluXGZz MjAgREJccGFyfQ== Biomarker Block(s) (test d0iqbDYfTFGlfBT7GlRr code = 9841) KMIlm9kxs6FfoNBwoGKl VAmfqHTriaTlln52xTX2 yH95JB9fSFSvTaB6CROl bsC0Uwc1GDKzUBLngQTy Q872h2jal8wdyjGllCR4 fVxwYXJkXHBsYWluXGZz MqBfWFDyx5MgBtqaY1c8 IEEyXHBhclxwYXJ9 Disclaimer (test code = r7bcqBDdWVPokBGpLkJe 9844) RZOtYCMhj8dfZFMtbETp ZzEwMzNcZnRuYmpcdWMx YZVqKdHvj1gnx214wLFt d7lkMDRcKfS0hWIsVUTj sIWoC549GDRhNMpwl5ei g9XwSAEhiJYfa9A4OSYC rliecAb4wKjgP30wx5Y5 KbuhA9xpUHJhQJEkX7Lj IQ9jTOWqFhu0QJM7SNP8 CQJuSAIjK1IhXD1vFZYi vKHtCAf0k0tkrVtwSXCf FBK7z9jwIRstsiAxDI5y ol1dsWh8x3ookoKdKQPz WBVvvUJWJWFuB3CxbQxl Ww5qmPe5pVffKspyKZV4 Zny7VR0biu62qyi9lNlh IUPtweskWzU1HIkuBPEb txreWGf4HNujCCWqlPL0 WXKqtLPmP9WaHGNdWH8f olk1IGJ7OVseGEXcUqL9 NDBcaGVhZGVyeTcyMFxm o007AQQ4DqYiYH0yW1Rs d6V1kS9mhCQtRCFpoIRh QdPeEROunh5zeJLeXDtd f5VoLJG2tnI0yZCudFYm QAJfAF34Eoern3YbRtrc YIN4WTYjcaShq6Dsj4uf IzUvvxQzE4tvM4XkLQWb CPXtASLsOvIrncGaf7Kw v5CamXMphZv4h6xdSIRg XBMtqKufi0bkKKE7DQQj N3R0rSEpm7ugVMnwKWQv zCG8bnM6QWWtbSGdX0Gn eZ1yLTRrUO5dhpm0c7mp PPV4BEsgVRGsCrX5ikD5 NDBcaGVhZGVyeTcyMFxm k829RIN6EvSfZEKmu0Bs L6McbKntR41hbGaiE86v HEQdrUjtqV4lcIxjdT4t ZjBcZnMyNFxxbFxwbGFp nqseGWvxyuY8OXslbdtr UZHeHKngR6djWkNaBMVq uJfbDBdtw2EcASZpFFGn HlwnorQ5ZZNSz02wPJPz c7ToNFJhpM3hgCFbSTzh bbPofMQ1DRvbvoFwTiRu hcGkLRNqnA7tHLPyTE4u SMBspvTzta9njfKqTWQb FQEmV1JfitprpOflbnVu ANDack9jjuVhPQY3WJDM EV6ZIJDzDTYcf88tNROf bYjdhH5mkXWoxhHeGUTl h8CckT9qfPIKAKJiA0tq GF5iVWvsf8QabTAhzLTq tBG4ZHLbd6QsKbBtuqKd wZToiGTtN1TjzBogP3nj ARMaAXPzsaGyeRBbj6Yh HHVkbBY3hKLkYK4LTiFU z41eWCXhORDUnlPqABEo aXimpUB6gfB5iX0wVdOF ZiBhcHBsaWNhYmxlLCBj p716bp2ntzJ0HOViEQOg czttj3IaFZFoZAHgjX16 ISDaEKGnlt2wwyrzxAXo bhFlJ6Ekekg5zR4fWXPo YWluXGYxXGZzMjJcbGFu ZzEwMzNcaGljaFxmMVxk OjXuWAFuQParL1nxJcOf ZnMyMlxwYXJ9 MD [facility] Specimen Collection -[id number] 21:56:16 Test Item Value Reference Range Interpretation Comments Edmond Ap Link (test code = 02786) [id number] Cytogenetics (Received) (test code Yes = 8304) MD [id number] 19:46:42 Test Item Value Reference Range Interpretation Comments Prealbumin (test code = 6855) 32.1 mg/dL 20.0-40.0 MD TobarConfirm [id number] 19:44:31 Test Item Value Reference Range Interpretation Comments ABORh Confirm. (test code = 882-1) O NEG MD TobarHemoglobin [id number] 18:21:11 Test Item Value Reference Range Interpretation Comments A1C (test code = 4632) 6.4 % 4.3-5.6 H HbA1c values >=6.5% are diagnostic of diabetes mellitus.Diagno sis should be confi rmed by repeat testing.Therape utic Action suggeste d: >8.0% HbA1c; Go al oftherapy: <7.0 % HbA1c Lab Interpretation (test Abnormal code = 40947-9) MD TobarPOMarina [id number] 18:02:08 Test Item Value Reference Range Interpretation Comments POC Crea (test code 1.6 mg/dL 0.6-1.3 H Medicati ons, = 75184-7) especially hydroxyurea or supplements, regalado ch as ascorbate, can interfere with test results causing a falsely and significantly h igher result than exp ected. If a problem is suspected with a patient's resul t, a sample should b e sent to the laborato for confirmatory te sting. Method descript ion: The i-STAT is a n analyzer used f or in vitro quantific ation of various anal ytes in whole blood. The device uses a s corby disposable cart ridge which contains microfabricated sensors, a calibration andriy ution, fluidics system , and a waste chamber . Each test cartridge contains chemic ally sensitive biose nsors on a [employer] ip that are config ured to perform spec ific tests. The microfabricated sensors measure analyte concent ration by an electroch emical assay. POC eGFR-AA (test 49 See_Comment L Normal eGF R >= 60 code = 33759-0) mL/min/1.73 m2 The eGFR is calcula glenna using the CKD-E PI equation. The e GFR declines with a ge. eGFR <60 mL/min /1.73 m2 is considere d as "decreased" Thi s equation should only be used for pat ients 18 and older. According to th e National Kid[employer]'s Ki dney Disease Outcome Quality Initiat chance (KDOQI) classification and 2012 Kidney Dis ease Improving Globa l Outcomes (KDIGO ) Clinical Practi ce Guideline, the stage of CKD should b e categorized bas ed on estimated GFR. Stage Description GFR mL/min/1.73 m21 Kidney damage w ith normal or high GFR >=902 Kidney d amage with mild decre ase in GFR 60-893a Mild to moderate dec rease in GFR 45-5 93b Moderate to sev ere decrease in GFR 30-444 Severe decrease in GFR 15-295 Kidney f ailure <15 (or richard lysis) [Automated mes jan] The system [employer] generated this result transmitted ref erence range: >=60 mL/min/1.73 m2. The reference range was not used to int erpret this result as normal/abnormal . POC eGFR-KALEIGH (test 42 See_Comment L Normal eG FR >= 60 code = 09355-9) mL/min/1.73 m2 The eGFR is calcula glenna using the CKD-E PI equation. The e GFR declines with a ge. eGFR <60 mL/min /1.73 m2 is considere d as "decreased" Thi s equation should only be used for pat ients 18 and older. According to th e National Kid[employer]'s Ki dney Disease Outcome Quality Initiat chance (KDOQI) classification and 2012 Kidney Dis ease Improving Globa l Outcomes (KDIGO ) Clinical Practi ce Guideline, the stage of CKD should b e categorized bas ed on estimated GFR. Stage Description GFR mL/min/1.73 m21 Kidney damage w ith normal or high GFR >=902 Kidney d amage with mild decre ase in GFR 60-893a Mild to moderate dec rease in GFR 45-5 93b Moderate to sev ere decrease in GFR 30-444 Severe decrease in GFR 15-295 Kidney f ailure <15 (or richard lysis) [Automated mes jan] The system [employer] generated this result transmitted ref erence range: >=60 mL/min/1.73 m2. The reference range was not used to int erpret this result as normal/abnormal . POC Clean Dev (test 2 code = 6672) Performing Lab (test MDA Main Main Ca mpus code = 20824) [facility] MD [facility], [address], [place] [address]; Counselor Aide: Jessica Avilez MD Lab Interpretation Abnormal (test code = 70537-1) MD [facility]ar
[2021-01-29 12:48] LABS: Absolute Lymphocytes (CBC) 0.7 K/uL (0.7-4.9); Basophils % 0.5 % (0-1.3); Hematocrit 43.2 % (39.6-49.0); Lymphocytes % 5.5 % (15.3-44.8); MPV 7.7 fL (7.6-11.3); RBC Red Blood Cell Count 5.04 M/uL (4.33-5.43)
[2021-01-29 13:09] LABS: Albumin 3.7 g/dL (3.4-5.0); Bilirubin Direct 0.1 mg/dL (0-0.2); Bilirubin Total 0.4 mg/dL (0.2-1.0); Potassium 4.4 mmol/L (3.5-5.1)
--- NOTE | 2021-01-29 13:19 | RAD REPORT ---
EXAM DESCRIPTION: CT - Abdomen Pelvis Wo Contrast - 01/29/2021 12:47 pm CLINICAL HISTORY: Abdominal pain flank pain COMPARISON: None TECHNIQUE: Computed axial tomography of the abdomen and pelvis was obtained. IV and oral contrast we re not requested. All CT scans are performed using dose optimization technique as appropriate and may include automated exposure control or mA/KV adjustment according to patient size. FINDINGS: The evaluation of solid organs, vessels and bowel is limited secondary to the lack of con trast administration. Multiple small bilateral renal calculi. 5 millimeter calculus mid right ureter. Mild to moderate righ t hydronephrosis with perirenal stranding. Parapelvic renal cysts Prostate gland is moderately to markedly enlarged. Small inguinal hernias The appendix is normal. There is no evidence of diverticulitis. Spondylolysis L5. Slight anterior subluxation L5 on S1. A small umbilical hernia. Moderate to large h iatal hernia IMPRESSION: 5 millimeter calculus mid right ureter resulting in mild to moderate right hydronephrosi s
[2021-01-29] MEDS ORDERED: KETOROLAC 30 MG/ML INJ ONE (13:25)
--- NOTE | 2021-01-29 13:27 | RAD REPORT ---
EXAM DESCRIPTION: US - Renal Ultrasound-Complete - 01/29/2021 1:09 pm CLINICAL HISTORY: Flank pain COMPARISON: CT scan January 29, 2021 FINDINGS: The right kidney measures 10 cm with a normal echotexture. The left kidney measures 10 cm with a normal echotexture. Bilateral parapelvic renal cysts. Mild to moderate right hydronephrosis. Small bilateral renal calcul i Prominent soft tissue from the prostate gland abuts the posterior aspect of the bladder IMPRESSION: Mild to moderate right hydronephrosis Prominent soft tissue abutting the posterior aspect of the bladder probably prostatic hypertrophy. Ho wever, prostatic neoplasm can also have a similar appearance
[2021-01-29 13:35] LABS: Blood Morphology Comment NOT SEEN (NOT SEEN); Platelet Estimate ADEQ; White Blood Cell Scan OK (OK)
--- NOTE | 2021-01-29 13:47 | ER ---
Nurse's Notes [facility] Name: Nicolas Justice Age: 70 yrs Sex: Male : 1950 Arrival Date: 01/29/2021 Time: 12:07 Bed 14 Private MD: Juan Blackmon Diagnosis: Unspecified renal colic;Kidney Stone/ Calculus in urethra;Unspecified hydronephrosis Presentation: 01/29 12:23 Chief complaint: Patient states: was sent by Dr. Blackmon for right kidney pain, iw recently had a heart attack and had a stent placed and can only do US, was told he had hydronephrosis, had some kidney damage after the heart cath when his pressure dropped to 60/30, was supposed to f/u with Dr. Elizabeth for kidney issue but they never called him back, last night he had blood in urine and has UTI , currently not taking abx , he takes brilinta and atorvastatin. Coronavirus screen: At this time, the client does not indicate any symptoms associated with coronavirus-19. Ebola Screen: Patient negative for fever greater than or equal to 101.5 degrees Fahrenheit, and additional compatible Ebola Virus Disease symptoms Patient denies exposure to infectious person. Patient denies travel to an Ebola-affected area in the 21 days before illness onset. No symptoms or risks identified at this time. Initial Sepsis Screen: Does the patient meet any 2 criteria? Does the patient have a suspected source of infection? No. Patient's initial sepsis screen is negative. Risk Assessment: Do you want to hurt yourself or someone else? Patient reports no desire to harm self or others. Onset of symptoms was January 29, 2021. 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 - Social history:: Smoking status: Patient reports use of chewing tobacco. Screenin:12 Abuse screen: Denies threats or abuse. Denies injuries from another. Nutritional jl7 screening: No deficits noted. Tuberculosis screening: No symptoms or risk factors identified. Fall Risk IV access (20 points). Total Galeano Fall Scale indicates No Risk (0-24 pts). Assessment: 12:33 Reassessment: Pt to CT now VIA wheelchair. Xigen states that he will obtain US after ss CT scan. 13:00 General: Appears in no apparent distress. uncomfortable, Behavior is calm, cooperative, jl7 appropriate for age. Pain: Complains of pain in right flank Pain currently is 8 out of 10 on a pain scale. Is continuous. Neuro: Level of Consciousness is awake, alert, obeys commands, Oriented to person, place, time, situation. Cardiovascular: Patient's skin is warm and dry. Respiratory: Airway is patent Respiratory effort is even, unlabored, Respiratory pattern is regular, symmetrical. Derm: Skin is pink, warm \T\ dry. 13:29 Reassessment: Pt reports continued pain, requesting pain medication, Dr. Alexander jl7 notified and gave VO for 15 mg Toradol IVP x 1, pt medicated as ordered. 13:32 Reassessment: Dr. Alexander at bedside discussing results and POC. jl7 13:40 Reassessment: Pt reports decreased pain at this time. jl7 Vital Signs: 12:23 BP 153 / 86; Pulse 80; Resp 16; Temp 98.6; Pulse Ox 97% on R/A; Weight 80.74 kg; Height iw 5 ft. 10 in. (177.80 cm); Pain 8/10; 13:12 BP 159 / 94; Pulse 75; Resp 15; Pulse Ox 98% ; Pain 8/10; jl7 12:23 Body Mass Index 25.54 (80.74 kg, 177.80 cm) iw ED Course: 12:07 Patient arrived in ED. ap4 12:08 Juan Blackmon MD is Private Physician. ap4 12:14 David Alexander MD is Attending Physician. kdr 12:27 Triage completed. iw 12:29 Arm band placed on. iw 12:31 Aniket Carroll RN is Primary Nurse. jl7 12:42 Note: 20 gauge iv to rt ac and labs drawn and sent by Eryn in [place].. sj 12:47 Abdomen In Process Unspecified. EDMS 13:09 Renal Ultrasound-Complete In Process Unspecified. EDMS 13:12 Patient has correct armband on for positive identification. Bed in low position. Call jl7 light in reach. Side rails up X 1. monitor car operator on. Pulse ox on. NIBP on. Warm blanket given. 13:12 Initial lab(s) drawn, sent to lab. Inserted saline lock: 20 gauge in left antecubital jl7 area, using aseptic technique. Blood collected. Inserted, blood collected and sent to lab by hvac operations technician. 13:46 Juan Blackmon MD is Referral Physician. kdr 14:05 No provider procedures requiring assistance completed. IV discontinued, intact, jl7 bleeding controlled, No redness/swelling at site. Pressure dressing applied. Administered Medications: 13:30 Drug: Ketorolac 15 mg Route: IVP; Site: left antecubital; jl7 13:40 Follow up: Response: No adverse reaction; Pain is decreased jl7 Outcome: 13:47 Discharge ordered by . kdr 14:05 Discharged to home ambulatory. jl7 14:05 Condition: stable 14:05 Discharge instructions given to patient, family, Instructed on discharge instructions, follow up and referral plans. medication usage, Demonstrated understanding of instructions, follow-up care, medications, Prescriptions given X 1. 14:07 Patient left the ED. jl7 Signatures: Dispatcher [employer] EDMS David Alexander MD MD kdr Jones, Susan sj Williams, Irene, DYANA TURPIN Emily Chamorro RN RN ss Leal, Jahala, RN RN jl7 Vicky Yan ap4
--- NOTE | 2021-01-29 13:47 | EDPHYS ---
Physician Documentation [facility] Name: Nicolas Justice Age: 70 yrs Sex: Male : 1950 Arrival Date: 01/29/2021 Time: 12:07 Bed 14 Private MD: Juan Blackmon ED Physician David Alexander HPI: 01/29 16:58 This 70 yrs old Male presents to ER via Ambulatory with complaints of KIDNEY kdr PAIN. 16:55 Severity of symptoms: At their worst the symptoms were moderate in the emergency kdr department the symptoms are unchanged. The patient has not experienced similar symptoms in the past. The patient has been recently seen by a physician: the patient's primary care provider. Patient had been sent to the emergency department by Dr. Blackmon after complaining of bilateral flank pain worse on the right for the past couple of days. The patient had a recent cardiac cath with a subsequent complication involving a period of hypotension. The patient has since had some kidney issues with this most recent incident involving the flank pain primarily on the right.. 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 - Social history:: Smoking status: Patient reports use of chewing tobacco. ROS: 16:55 Constitutional: Negative for fever, chills, and weight loss, Eyes: Negative for injury, kdr pain, redness, and discharge, ENT: Negative for injury, pain, and discharge, Neck: Negative for injury, pain, and swelling, Cardiovascular: Negative for chest pain, palpitations, and edema, Respiratory: Negative for shortness of breath, cough, wheezing, and pleuritic chest pain, Abdomen/GI: Negative for abdominal pain, nausea, vomiting, diarrhea, and constipation, MS/Extremity: Negative for injury and deformity, Skin: Negative for injury, rash, and discoloration, Neuro: Negative for headache, weakness, numbness, tingling, and seizure activity. Psych: Negative for depression, anxiety, suicide ideation, homicidal ideation, and hallucinations, Allergy/Immunology: Negative for hives, rash, and allergies, Endocrine: Negative for neck swelling, polydipsia, polyuria, polyphagia, and marked weight changes, Hematologic/Lymphatic: Negative for swollen nodes, abnormal bleeding, and unusual bruising. 16:55 Back: Positive for Bilateral flank pain worse on the right. 16:55 : Positive for hematuria. Exam: 16:55 Constitutional: This is a well developed, well nourished patient who is awake, alert, kdr and in no acute distress. Head/Face: Normocephalic, atraumatic. Eyes: Pupils equal round and reactive to light, extra-ocular motions intact. Lids and lashes normal. Conjunctiva and sclera are non-icteric and not injected. Cornea within normal limits. Periorbital areas with no swelling, redness, or edema. Neck: Trachea midline, no thyromegaly or masses palpated, and no cervical lymphadenopathy. Supple, full range of motion without nuchal rigidity, or vertebral point tenderness. No Meningismus. Chest/axilla: Normal chest wall appearance and motion. Nontender with no deformity. No lesions are appreciated. Cardiovascular: Regular rate and rhythm with a normal S1 and S2. No gallops, murmurs, or rubs. Normal PMI, no JVD. No pulse deficits. Respiratory: Lungs have equal breath sounds bilaterally, clear to auscultation and percussion. No rales, rhonchi or wheezes noted. No increased work of breathing, no retractions or nasal flaring. Abdomen/GI: Soft, non-tender, with normal bowel sounds. No distension or tympany. No guarding or rebound. No evidence of tenderness throughout. Skin: Warm, dry with normal turgor. Normal color with no rashes, no lesions, and no evidence of cellulitis. MS/ Extremity: Pulses equal, no cyanosis. Neurovascular intact. Full, normal range of motion. Neuro: Awake and alert, GCS 15, oriented to person, place, time, and situation. Cranial nerves II-XII grossly intact. Motor strength 5/5 in all extremities. Sensory grossly intact. Cerebellar exam normal. Normal gait. Psych: Awake, alert, with orientation to person, place and time. Behavior, mood, and affect are within normal limits. 16:55 Back: pain, that is mild, ROM is normal spinal alignment noted, CVA tenderness, that is mild, is noted on the right, is noted bilaterally. Vital Signs: 12:23 BP 153 / 86; Pulse 80; Resp 16; Temp 98.6; Pulse Ox 97% on R/A; Weight 80.74 kg; Height iw 5 ft. 10 in. (177.80 cm); Pain 8/10; 13:12 BP 159 / 94; Pulse 75; Resp 15; Pulse Ox 98% ; Pain 8/10; jl7 12:23 Body Mass Index 25.54 (80.74 kg, 177.80 cm) iw MDM: 13:47 Patient medically screened. kdr 16:55 Data reviewed: vital signs, nurses notes, lab test result(s), radiologic studies. kdr Counseling: I had a detailed discussion with the patient and/or guardian regarding: the historical points, exam findings, and any diagnostic results supporting the discharge/admit diagnosis, lab results, radiology results, the need for outpatient follow up. ED course: Patient remained stable in the ED. His pain was significantly improved. He did not appear toxic. He was happy with the care provided and the plan for discharge and follow-up. I discussed the patient's information presentation laboratory results and radiology studies with Dr. Blackmon. He agreed to see the patient in the office on Monday morning. At that time he plan to refer out to both urology and nephrology. 01/29 12:15 Order name: Basic Metabolic Panel [facility] 01/29 12:15 Order name: CBC with Diff [facility] 01/29 12:15 Order name: Hepatic Function; Complete Time: 13:30 [facility] 01/29 12:15 Order name: Lipase; Complete Time: 13:30 [facility] 01/29 12:16 Order name: Basic Metabolic Panel; Complete Time: 13:30 [facility] 01/29 13:32 Order name: CBC Smear Scan [facility] 01/29 12:15 Order name: IV Saline Lock; Complete Time: 13:11 [facility] 01/29 12:15 Order name: Labs collected and sent; Complete Time: 13:11 [facility] 01/29 12:32 Order name: Renal Ultrasound-Complete; Complete Time: 13:30 [facility] 01/29 12:43 Order name: Abdomen ; Complete Time: 13:30 EDMS Administered Medications: 13:30 Drug: Ketorolac 15 mg Route: IVP; Site: left antecubital; jl7 13:40 Follow up: Response: No adverse reaction; Pain is decreased jl7 Disposition Summary: 01/29/21 13:47 Discharge Ordered Location: Home kdr Problem: new kdr Symptoms: have improved kdr Condition: Stable kdr Diagnosis - Unspecified renal colic kdr - Kidney Stone/ Calculus in urethra kdr - Unspecified hydronephrosis kdr Followup: kdr - With: Juan Blackmon MD - When: 2 - 3 days - Reason: If symptoms return, Further diagnostic work-up, Recheck today's complaints, Continuance of care, Re-evaluation by your physician Discharge Instructions: - Discharge Summary Sheet kdr - Kidney Stones kdr - Renal Colic, [id number] kdr Forms: - Medication Reconciliation Form kdr - Thank You Letter kdr - Antibiotic Education kdr - Prescription Opioid Use kdr Prescriptions: - Flomax 0.4 mg Oral capsule - take 1 capsule by ORAL route once daily for 10 days 1/2 hour following the same kdr meal each day; 10 capsule; Refills: 0, Product Selection Permitted - Bactrim DS 800-160 mg Oral Tablet - take 1 tablet by ORAL route every 12 hours for 3 days; 6 tablet; Refills: 0, [facility] Product Selection Permitted - Zofran 4 mg Oral Tablet - take 1 tablet by ORAL route every 4-6 hours As needed; 20 tablet; Refills: 0, [facility] Product Selection Permitted - Tylenol-Codeine #3 300 mg-30 mg Oral - take 1 tablet by ORAL route every 4-6 hours As needed; 16 tablet; Refills: 0, [facility] Product Selection Permitted Signatures: Dispatcher [employer] EDMS David Alexander MD MD kdr Lexie Carter RN RN iw Aniket Carroll RN RN jl7 Corrections: (The following items were deleted from the chart) 12:32 12:16 Abdomen Limited+US.RAD.BRZ ordered. EDMS EDMS 12:43 12:16 Abdomen Pelvis W Con+CT.RAD.BRZ ordered. EDMS EDMS
[2021-01-29 14:11] VITALS: TEMP 98.6
[2021-01-29 14:13] VITALS: BP 159/94; O2SAT 98
== END 2021-01-29 14:07 | disposition home or self-care (01) ==
LOC: ER 12:03
DX: N23 Unspecified renal colic (principal); N21.1 Calculus in urethra; N20.0 Calculus of kidney; N13.30 Unspecified hydronephrosis; E78.00 Pure hypercholesterolemia, unspecified; I25.2 Old myocardial infarction; Z95.818 Presence of other cardiac implants and grafts; Z79.82 Long term (current) use of aspirin
CPT/HCPCS: 36415; 74176; 76770; 80048; 80076; 82565; 83690; 85025; 96374; 99284

== ENCOUNTER 2022-04-12 09:22 | Day surgery (SDC) | payer OTHER, BC ==
[2022-03-28 14:25] LABS: Absolute Lymphocytes (CBC) 1.2 K/uL (0.7-4.9); Hematocrit 38.8 % (39.6-49.0); Lymphocytes % 19.6 % (15.3-44.8); MCV 84.5 fL (80-100); MPV 8.2 fL (7.6-11.3)
[2022-03-28 14:26] LABS: Protime INR 1.02
--- NOTE | 2022-03-28 14:40 | RAD REPORT ---
EXAM DESCRIPTION: RAD - Chest Pa And Lat (2 Views) - 03/28/2022 2:09 pm CLINICAL HISTORY: Pre op pending TURP Chest pain. COMPARISON: Abdomen 1 View (KUB) dated 04/22/2021 FINDINGS: The lungs are clear. The heart is normal in size. No displaced fractures. Moderate hiatal hernia.
[2022-03-28 14:43] LABS: Potassium 4.7 mmol/L (3.5-5.1)
[~2022-04-12 09:22] MED LIST: Gentamicin Inj 200 MG in NA CHLORIDE 0.9% 100 ML IV SCH
[2022-04-12] MEDS ORDERED: Ringers Lactate 1,000 ML IV ONE (09:47)
[2022-04-12] MEDS ORDERED: AMPICILLIN SODIUM 2 GM/VIAL VIAL ONE (09:48)
[2022-04-12] MEDS ORDERED: FENTANYL CITR 100 MCG/2 ML ONE ×2 (11:30→12:07)
[2022-04-12] MEDS ORDERED: MIDAZOLAM HCL 2 MG/2 ML INJ ONE (11:30)
[2022-04-12] MEDS ORDERED: propofoL 200 MG/20 ML VIAL IV ONE (11:30)
[2022-04-12] MEDS ORDERED: NS 0.9% VIAL 10 ML ONE (11:31)
[2022-04-12] MEDS ORDERED: LIDOCAINE 1% MPF 5 ML VIAL ONE (11:31)
[2022-04-12] MEDS ORDERED: KETOROLAC 30 MG/ML INJ ONE (11:47)
[2022-04-12] MEDS ORDERED: ONDANSETRON 4 MG/2 ML VIAL ONE (11:49)
[2022-04-12] MEDS ORDERED: PHENAZOPYRIDINE 100MG TAB PO ONE (13:47)
[2022-04-12] MEDS ORDERED: CODEINE 30MG/APAP 300MG TAB PO PRN (13:47)
[2022-04-12 14:17] VITALS: TEMP 97.5; O2SAT 97
--- NOTE | 2022-04-12 17:44 | P.OP ---
Date of Service: 04/12/22 Preoperative diagnosis: Benign prostatic hypertrophy/BPH with lower urinary tract obstruction and symptoms Intravesically projecting median lobe abutting the ureteral orifices Elevated PSA Postoperative diagnoses: Benign prostatic hypertrophy/BPH with lower urinary tract obstruction and symptoms Intravesically projecting median lobe abutting the ureteral orifices Elevated PSA Principal procedure: Bipolar transurethral resection of the prostate/TURP Indication for procedure: 72-year-old gentleman with persistent irritative and obstructive LUTS due to BPH. Of note, his PSA was elevated, but the percent free elevation was significantly suggestive of the likelihood that the PSA elevation was due to inflammation. I did eap counselor the patient and his family on the potential occult presence of prostate cancer that sometimes could be revealed on pathologic assessment of the tissue removed. However given his PSA less than 6.5 at his age, preoperative transrectal ultrasound-guided biopsy was a relative consideration, and of less value since his LUTS were severe and required treatment. Also, since he would not be a candidate for radical prostatectomy, radiation therapy would be recommended, and prior management of his obstructive LUTS would have been required. As a result, he was counseled on options for management, but given the anatomy of his obstruction including the intravesical projection of a median lobe without lateral sulci, a bipolar TURP was his best option available within technologies offered by me at this institution. Findings and Operative Technique The patient was consented in the preoperative holding area before being transferred to the operative suite where general anesthesia was induced. He was given ampicillin 2 g and gentamicin 2 to 3 mg/kg IV antimicrobial prophylaxis, and pneumoboots were provided for DVT prophylaxis. His genitalia was prepped with Hibiclens and he was draped in standard fashion. The case was begun using urethral sounds to dilate the meatus and fossa navicularis to 30 Uzbek. I was then able to use a visual obturator in the 26 Uzbek resectoscope sheath to traverse the urethra and into the bladder with ease. As previously noted, there was a significant intravesical component of a median lobe that was abutting and obscuring the ureteral orifices bilaterally. As a result, I began by identifying the left ureteral orifice and to medializing the median lobe in that location, resecting the median lobe with the orifice under direct vision. After significant resection had been done and the orifice was no longer an immediate danger of injury, I then performed a similar resection on the right side with the orifice under direct vision. I then resected the remainder of the median lobe and the intervening tissue until the lobe was resected down to the level of the bladder neck. I then continued resection of the elevated median bar and resected it down to the level of the verumontanum. I then continued to resection into the lateral lobar tissue starting on the left side at the bladder neck to the mid zone of the prostate extending anteriorly. I continue that resection this time on the right side at the bladder neck and mid zone of the prostate extending anteriorly. Once the bladder neck had been opened, I then continued the resection from the mid zone of the prostate to the apex extending from posteriorly to apically and anteriorly. This was done on the left side and then on the right side, once the majority of tissue had been resected, I continued resection to ensure a smooth channel had been created from the verumontanum all the way into the bladder with no interdigitating tissue observed with the bladder completely decompressed. I E like evacuated all prostate chips from within his bladder, and ensured careful fulguration of all bleeding vessels. Additional resection and fulguration was performed where necessary until the prostatic fossa was hemostatic with the bladder decompressed. I then ensured all prostate chips were removed and then left his bladder full before removing the resectoscope. I then placed a 24 [address]bek three- way Manley catheter into his bladder with ease, and I placed 50 cc of sterile water in the balloon. The patient was then taken out of the lithotomy position, and I placed the catheter to moderate traction. Slow drip CBI was initiated, and the return of fluid and urine was very light pink and nearly clear. He was then awakened from general anesthesia before being transferred to a stretcher, and then he was transferred to the recovery room in good condition. Complications: None Discharge disposition: He may follow-up in the urology clinic on Monday for voiding trial. Subsequent follow-up should be established with me in about 3 months time, but should he have significant issues with overactive bladder symptoms, anticholinergic therapy may be considered. I would like him to obtain a PSA about 1 week prior to follow-up in 3 months.
[2022-04-12 18:08] VITALS: BP 131/73
== END 2022-04-12 16:36 | disposition home or self-care (01) ==
LOC: OR 09:22
PROVIDERS: ATTEND Urology
PROC: 0VT08ZZ Resection of Prostate, Via Natural or Artificial Opening Endoscopic (ICD-10-PCS; principal; 2022-04-12 10:45)
DX: N40.1 Benign prostatic hyperplasia with lower urinary tract symptoms (principal); R97.20 Elevated prostate specific antigen [PSA]; N13.8 Other obstructive and reflux uropathy
CPT/HCPCS: 87088; 85025; 87086; 80048; 36415; 85610; 88305; 71046; 52601; J2704; J2001; J1580; J3010 ×2; A4216; J7120; J2405; J0290; J2250